=== PATIENT | male | born 1980 | race Two or more races ===

== ENCOUNTER 2021-10-07 08:46 | Inpatient (IN) ==
--- NOTE | 2021-10-07 09:16 | Emergency Department Note ---
Impression & Plan Pancreatitis, Abdominal pain, LUQ ED Provider Note INFORMANT: Patient ED PROVIDER(S): Moises Hernandez MD CHIEF COMPLAINT: Abdominal pain PLAN: Disposition: Admitted Condition: Good Outpatient prescription management: none Referral: None MEDICAL DECISION MAKING: Patient presented to emergency room and because of recurrent pain that was more severe. He was feeling better yesterday but then as he advanced his diet his symptoms returned. He was quite uncomfortable. He was treated with Dilaudid and Zofran. Blood work was obtained. He was also hydrated with lactated Ringer's. The patient was found to have hyperglycemia on chemistry panel. His initial potassium was hemolyzed and recollect revealed an elevated level of 6.3. ECG was performed and showed no acute changes consistent with hyperkalemia. Repeat potassium ordered. Imaging was deferred due to the recent CT scan consistent with acute pancreatitis. Lipase was initially reported as high, greater than 15,000 and required dilution. This dilution did reveal an elevated level over 21,000. The patient was reassessed. He required additional analgesia. Consultation was made with Dr. Ross of the hospitalist service. The team evaluated patient in the ER and admitted him for further management. They did place him on an insulin drip. Triage Nursing notes reviewed and agree them. Vital Signs: reviewed and remarkable for tachycardia and hypertension Differential diagnosis: Pancreatitis, appendicitis, testicular torsion, infections, diverticulitis, UTI, obstruction, mesenteric ischemia, aortic pathology, inflammatory bowel disease, renal colic, PUD, biliary pathology, hernia, volvulus, constipation, as well as other pathologies. Diagnostics interpreted by me: ECG: Twelve-lead ECG reveals sinus tachycardia at [address]-T wave abnormality present. No ST elevation. No PVCs or PACs. Cardiac Monitoring: Cardiac monitoring ordered by me: The patient was placed on continuous cardiac monitoring and observed. It revealed a normal sinus rhythm at 105beats per minute without ectopy or evidence of dysrhythmia. Imaging studies: Deferred HPI: The patient is a 41 year old male who presents to the Emergency Room with complaints of LUQ abdominal pain. This started today and is similar but more s evere than his visit two days when he was diagnosed with pancreatitis. The patient also notes the following associated symptoms, pain radiating to the back, sweating. The patient has taken no medication for relieving factors. Current pain is rated as 7/10. The patient notes the pain was a 10 out of 10. He states he was feeling better after discharge but then started to eat normally yesterday afternoon. He woke up today with the pain and it quickly escalated. He was diagnosed with hypertriglyceridemia and was started on medication for this. Pt denies LOC, headache, fevers, chills, diaphoresis, visual changes, neck pain, chest pain, breathing difficulties, nausea, vomiting, back pain, melena, hematochezia, urinary symptoms, numbness, weakness, lymphadenopathy, rash, or other complaints. ROS: See above HPI for pertinent positives & negatives. A total of 10 systems reviewed and were otherwise negative. PAST MEDICAL HISTORY:See Below , diabetes, high triglycerides, pancreatitis PAST SURGICAL HISTORY:See Below, FAMILY HISTORY:See Below SOCIAL HISTORY:See Below, HOME MEDICATIONS:See Below ALLERGIES:See Below VITALS:See Below PHYSICAL EXAMINATION: GENERAL: Awake, alert, uncomfortable-appearing, in no distress HENT: Normocephalic, atraumatic. Oropharynx unremarkable. EYES: Normal conjunctiva. Sclera non-icteric. NECK: Inspection normal. Non-tender. Supple. No nuchal rigidity. FROM. No masses. RESPIRATORY: Clear to auscultation. No wheezes. No rales. Normal respiratory effort. CARDIAC: Normal rate. Normal rhythm. No murmurs. No rubs. Extremities warm and well perfused. Pulses equal. No JVD. GI: Soft, non-distended. Left upper quadrant tenderness to palpation. No rebound or guarding. No masses. RECTAL: Deferred. MUSCULOSKELETAL: Atraumatic. Chest examination reveals no tenderness. The back is symmetrical on inspection without obvious abnormality. There is no CVA tenderness to palpation. No joint edema. LOWER EXTREMITIES: Calves are equal size bilaterally and non-tender. No edema. No discoloration. NEURO: Normal sensorium. No sensory or motor deficits noted. SKIN: Diaphoretic, no rash or jaundice noted. Moises Hernandez MD Past Med/Surg History Medical History Diabetes High blood pressure Surgical History (Updated 09/28/21 @ 00:18 by Colleen Florentino PA-C) History of orthopedic surgery Social History Smoking Status: Never smoker Feels Safe at Home: Yes Allergies Allergies Allergy/AdvReac Type Severity Reaction Status Date / Time No Known Allergies Allergy Verified 09/28/21 00:51 Home Meds Home Medications Medication Instructions Recorded Confirmed atorvastatin 10 mg tablet 10 mg PO HS 09/28/21 10/07/21 dextroamphetamine-amphetamine ER 30 mg PO DAILY 09/28/21 10/07/21 30 mg 24hr capsule,extend release hydrochlorothiazide 12.5 mg capsule 12.5 mg PO DAILY 09/28/21 10/07/21 lisinopril 20 mg tablet 20 mg PO DAILY 09/28/21 10/07/21 metformin 500 mg tablet 1,000 mg PO BID 09/28/21 10/07/21 metoprolol succinate 100 mg 100 mg PO DAILY 09/28/21 10/07/21 tablet,extended release 24 hr testosterone cypionate 200 mg/mL 200 mg IM .[id number] 09/28/21 10/07/21 intramuscular oil venlafaxine 75 mg tablet 75 mg PO BID 09/28/21 10/07/21 fenofibrate micronized 43 mg 43 mg PO DAILY 10/07/21 10/07/21 capsule Previous Rx's Medication Instructions Recorded cholestyramine-aspartame 4 gram 4 g PO DAILY PRN 30 Days #30 ea 09/28/21 oral powder for susp in a packet (Cholestyramine Light) Results & Data (ED) Vital Signs Vital Signs - 24 hr 10/07/21 08:48 10/07/21 09:36 10/07/21 10:13 Temperature 37.1 C Temperature Source Skin Pulse Rate 98 H Pulse Rate [Finger] 100 H Respiratory Rate 18 16 Blood Pressure 178/109 H Blood Pressure [Left Arm] 169/126 H Blood Pressure Mean 132 Blood Pressure Mean [Left Arm] 140 Pulse Oximetry 98 98 98 Oxygen Delivery Method Room Air Room Air Room Air Sepsis Recent Fever Within 48 Hours No Sepsis New/Unexplained Change in Mental Status No Sepsis Action Taken by Nursing No Action Required Laboratory Data Result diagrams: 10/07/21 09:35 10/07/21 14:43 Lab Results 10/07/21 10/07/21 10/07/21 Range/Units 09:35 09:35 09:40 WBC 6.77 (4.8-10.8) K/uL RBC 5.59 (4.7-6.1) M/uL Hgb 16.1 (14.0-18.0) g/dL Hct 46.5 (42-52) % MCV 83.2 (80-100) fL MCH 28.8 (25-34) pg MCHC 34.6 (32-36) g/dL RDW Std Deviation 39.3 (36.4-46.3) fL RDW Coeff of Vickie 13.2 (11.5-14.5) % Plt Count 250 (130-400) K/uL MPV 9.6 (7.4-10.4) fL Immature Gran % (Auto) 1.9 % Neut % (Auto) 56.0 % Lymph % (Auto) 32.1 % [place] % (Auto) 5.9 % Eos % (Auto) 3.4 % Baso % (Auto) 0.7 % Neut # (Auto) 3.79 (1.4-6.5) K/uL Lymph # (Auto) 2.17 (1.2-3.4) K/uL [place] # (Auto) 0.40 (0.11-0.59) K/uL Eos # (Auto) 0.23 (0-0.5) K/uL Baso # (Auto) 0.05 (0-0.2) K/uL Immature Gran # (Auto) 0.13 H (0.00-0.02) K/uL Absolute Nucleated RBC 0.08 H (0-0) K/uL Nucleated RBC % (auto) 1.1 % Sodium 133 L (136-145) mmol/L Potassium (3.5-5.1) mmol/L Chloride 99 (98-107) mmol/L Carbon Dioxide 19 L (21-32) mmol/L Anion Gap 11.0 (3-11) BUN 18 (7-18) mg/dl Creatinine 1.02 (0.6-1.4) mg/dl Est Cr Clr Drug Dosing 127.0 ml/min Est GFR ( Amer) 104.6 ml/min Est GFR (Non-Af Amer) 90.2 ml/min BUN/Creatinine Ratio 20.2 H (10-20) Glucose 305 H* (70-99) mg/dl Calcium 9.4 (8.5-10.1) mg/dl Total Bilirubin 0.4 (0.2-1) mg/dl AST (15-37) U/L ALT 43 (12-78) Alkaline Phosphatase 94 (45-117) U/L Lactate Dehydrogenase (87-241) U/L Total Protein 8.0 (6.4-8.2) gm/dl Albumin 3.4 (3.4-5.0) gm/dl Globulin 4.3 H (2.5-4.0) gm/dl Albumin/Globulin Ratio 0.9 (0.9-2) Triglycerides (0-150) mg/dl Lipase 85673 H (73-393) U/L Beta-Hydroxybutyric Acd (0.2-2.81) mg/dl Urine Color Urine Appearance (Clear) Urine pH (4.5-7.5) Ur Specific [place] (1.000-1.030) Urine Protein (Negative) Urine Glucose (UA) (Negative) Urine Ketones (Negative) Urine Blood (Negative) Urine Nitrite (Negative) Urine Bilirubin (Negative) Urine Urobilinogen (Negative) Ur Leukocyte Esterase (Negative) Urine WBC (Auto) (0-5) /hpf Urine RBC (Auto) (0-4) /hpf U Hyaline Cast (Auto) (0-5) /lpf U Epithel Cells (Auto) (0-5) /lpf Urine Bacteria (Auto) (Negative) SARS-CoV-2, RNA, NAAT NEGATIVE (NEGATIVE) 10/07/21 10/07/21 10/07/21 Range/Units 11:17 11:47 11:47 WBC (4.8-10.8) K/uL RBC (4.7-6.1) M/uL Hgb (14.0-18.0) g/dL Hct (42-52) % MCV (80-100) fL MCH (25-34) pg MCHC (32-36) g/dL RDW Std Deviation (36.4-46.3) fL RDW Coeff of Vickie (11.5-14.5) % Plt Count (130-400) K/uL MPV (7.4-10.4) fL Immature Gran % (Auto) % Neut % (Auto) % Lymph % (Auto) % [place] % (Auto) % Eos % (Auto) % Baso % (Auto) % Neut # (Auto) (1.4-6.5) K/uL Lymph # (Auto) (1.2-3.4) K/uL [place] # (Auto) (0.11-0.59) K/uL Eos # (Auto) (0-0.5) K/uL Baso # (Auto) (0-0.2) K/uL Immature Gran # (Auto) (0.00-0.02) K/uL Absolute Nucleated RBC (0-0) K/uL Nucleated RBC % (auto) % Sodium (136-145) mmol/L Potassium (3.5-5.1) mmol/L Chloride (98-107) mmol/L Carbon Dioxide (21-32) mmol/L Anion Gap (3-11) BUN (7-18) mg/dl Creatinine (0.6-1.4) mg/dl Est Cr Clr Drug Dosing ml/min Est GFR ( Amer) ml/min Est GFR (Non-Af Amer) ml/min BUN/Creatinine Ratio (10-20) Glucose (70-99) mg/dl Calcium (8.5-10.1) mg/dl Total Bilirubin (0.2-1) mg/dl AST (15-37) U/L ALT (12-78) Alkaline Phosphatase (45-117) U/L Lactate Dehydrogenase (87-241) U/L Total Protein (6.4-8.2) gm/dl Albumin (3.4-5.0) gm/dl Globulin (2.5-4.0) gm/dl Albumin/Globulin Ratio (0.9-2) Triglycerides 3287 H (0-150) mg/dl Lipase (73-393) U/L Beta-Hydroxybutyric Acd (0.2-2.81) mg/dl Urine Color Yellow Urine Appearance Clear (Clear) Urine pH 5.0 (4.5-7.5) Ur Specific [place] 1.024 (1.000-1.030) Urine Protein 1+ H (Negative) Urine Glucose (UA) 3+ H (Negative) Urine Ketones 1+ H (Negative) Urine Blood Negative (Negative) Urine Nitrite Negative (Negative) Urine Bilirubin Negative (Negative) Urine Urobilinogen Negative (Negative) Ur Leukocyte Esterase Negative (Negative) Urine WBC (Auto) 1-5 (0-5) /hpf Urine RBC (Auto) 0-4 (0-4) /hpf U Hyaline Cast (Auto) 0 (0-5) /lpf U Epithel Cells (Auto) 0-5 (0-5) /lpf Urine Bacteria (Auto) Negative (Negative) SARS-CoV-2, RNA, NAAT (NEGATIVE) Administered Medications Insulin Human Regular 250 (units/ Sodium Chloride) 250 mls @ 12 mls/hr IV .[id number] [facility]; Protocol Stop: 11/06/21 13:29 Last Admin: 10/07/21 14:52 Dose: 12 units/hr, 12 mls/hr Documented by: [id number] Cosigned by: [id number] Sodium Chloride (Nss 1000ml) 1,000 mls @ 200 mls/hr IV .Q5H [facility] Stop: 11/06/21 14:14 Last Admin: 10/07/21 14:58 Dose: 200 mls/hr Documented by: [id number] Discontinued Medications Hydralazine HCl (Hydralazine Hcl 20 Mg/Ml Vial) 10 mg IV NOW STA Stop: 10/07/21 13:22 Last Admin: 10/07/21 13:54 Dose: 10 mg Documented by: [id number] Hydromorphone HCl (Hydromorphone Inj 0.5 Mg/0.5 Ml Syr) 0.5 mg IV Q15M PRN PRN Reason: Pain Stop: 10/21/21 09:20 Last Admin: 10/07/21 14:58 Dose: 0.5 mg Documented by: [id number] Admin: 10/07/21 12:09 Dose: 0.5 mg Documented by: [id number] Admin: 10/07/21 09:40 Dose: 0.5 mg Documented by: [id number] Hydromorphone HCl (Hydromorphone Inj 1 Mg/Ml Syringe) 1 mg IV ONE STA Stop: 10/07/21 12:02 Last Admin: 10/07/21 12:41 Dose: 1 mg Documented by: [id number] Lactated Ringer's (Lr) 1,000 mls @ 999 mls/hr IV .Q1H1M ONE Stop: 10/07/21 12:16 Last Infusion: 10/07/21 12:32 Dose: 0 mls/hr Documented by: [id number] Admin: 10/07/21 11:20 Dose: 999 mls/hr Documented by: [id number] Lactated Ringer's (Lr) 1,000 mls @ 200 mls/hr IV .Q5H [facility] Stop: 11/06/21 11:29 Last Admin: 10/07/21 12:40 Dose: 200 mls/hr Documented by: [id number] Ondansetron HCl (Ondansetron Inj 2 Mg/Ml 2 Ml Vial) 4 mg IV NOW STA Stop: 10/07/21 09:22 Last Admin: 10/07/21 09:40 Dose: 4 mg Documented by: [id number] Discharge Plan Visit Data Chief Complaint: Abdominal Pain Stated Complaint: ABDOMINAL PAIN/CHILLS ED Provider: Moises Hernandez Discharge Problem: Pancreatitis, Abdominal pain, LUQ Discharge Instructions Interventions: ED Discharge Assessment Last Done: 10/07/21 15:10
[2021-10-07] MEDS ORDERED: ONDANSETRON INJ 2 MG/ML 2 ML VIAL IV STA (09:21)
[2021-10-07] MEDS: HYDROmorphone INJ 0.5 MG/0.5 ML SYR IV PRN ×3 (09:40→14:58)
[2021-10-07 09:47] LABS: Basophils # (auto) 0.05 K/uL (0-0.2); Basophils % (auto) 0.7 %; Eosinophils # (auto) 0.23 K/uL (0-0.5); Eosinophils % (auto) 3.4 %; Hematocrit (blood only) 46.5 % (42-52); Hemoglobin 16.1 g/dL (14.0-18.0); Immature Granulocytes # (auto) 0.13 K/uL (0.00-0.02); Immature Granulocytes % (auto) 1.9 %; Lymphocytes # (auto) 2.17 K/uL (1.2-3.4); Lymphocytes % (auto) 32.1 %; Mean Corpuscular Hemoglobin 28.8 pg (25-34); Mean Corpuscular Hgb Conc 34.6 g/dL (32-36); Mean Corpuscular Volume 83.2 fL (80-100); Mean Platelet Volume 9.6 fL (7.4-10.4); Monocytes % (auto) 5.9 %; Neutrophils # (auto) 3.79 K/uL (1.4-6.5); Nucleated RBC # (auto) 0.08 K/uL (0-0); Nucleated RBC % (auto) 1.1 %; Platelet Count 250 K/uL (130-400); RDW Coefficient of Variation 13.2 % (11.5-14.5); RDW Standard Deviation 39.3 fL (36.4-46.3); Red Blood Count 5.59 M/uL (4.7-6.1); White Blood Count 6.77 K/uL (4.8-10.8)
[2021-10-07] MEDS ORDERED: LACTATED RINGER'S 1,000 ML IV ONE (11:16)
[2021-10-07] MEDS ORDERED: LACTATED RINGER'S 1,000 ML IV SCH (11:30)
[2021-10-07 11:34] LABS: Appearance Urine Clear (Clear); Bacteria Urine Automated Negative (Negative); Bilirubin Urine Negative (Negative); Blood Urine Negative (Negative); Cast Urine Automated 0 /lpf (0-5); Color Urine Yellow; Epithelial Cell Urine Auto 0-5 /lpf (0-5); Glucose Urine UA 3+ (Negative); Ketones Urine 1+ (Negative); Leukocyte Esterase Urine Negative (Negative); Nitrite Urine Negative (Negative); Protein Urine 1+ (Negative); RBC Urine Automated 0-4 /hpf (0-4); Specific Gravity Urine 1.024 (1.000-1.030); Urobilinogen Urine Negative (Negative)
[2021-10-07 11:37] LABS: Albumin Globulin Ratio 0.9 (0.9-2); Albumin Level 3.4 gm/dl (3.4-5.0); BUN Creatinine Ratio 20.2 (10-20); Bilirubin,Total 0.4 mg/dl (0.2-1); Calcium 9.4 mg/dl (8.5-10.1); Est GFR (African American) 104.6 ml/min; Est GFR (Non-African American) 90.2 ml/min; Globulin 4.3 gm/dl (2.5-4.0)
[2021-10-07] MEDS ORDERED: PHARMACY GLYCEMIC MGMT CONSULT PRN (11:50)
[2021-10-07] MEDS ORDERED: STAT IV Infusion **Titration per Protocol STA (11:50)
[2021-10-07] MEDS ORDERED: HYDROmorphone INJ 1 MG/ML SYRINGE IV STA (12:01)
--- NOTE | 2021-10-07 12:04 | History & Physical Report ---
Date of Service October 07, 2021 Assessment & Plan (1) Pancreatitis: Plan: Patient will be admitted to the hospital proceeding as follows: Patient will be placed on bowel rest with n.p.o. status We will aggressively hydrate with IV fluids. Treating emergency room physician has ordered lactated Ringer's at 200 cc/h which we will continue. Will implement pain control measures Will implement antiemetics should nausea ensue We will follow serial laboratories We will check a gallbladder ultrasound to evaluate for biliary etiology of his pancreatitis Due to the patient's hyperglycemia he will be placed on an insulin drip with close monitoring of his BSG's We will hold the patient's hydrochlorothiazide The exact etiology of patient's pancreatitis has not yet been ascertained. As noted above we will evaluate for biliary pathology. As noted during his p revious visit to the emergency department the patient was noted to have hypertriglyceridemia which could be contributing to his pancreatitis. (Continued outpatient treatment for hypertriglyceridemia should be employed upon time of discharge) In addition the patient was noted to take hydrochlorothiazide which is sometimes an offending agent and pancreatitis. (This medicine is being held as noted above) We will utilize Lovenox for DVT prevention Patient will be a level 1 full code History of Present Illness Chief Complaint: Abdominal pain Primary Care Provider: NO PCP This is a 41-year-old male who was seen in the emergency department on 11/28/2020 secondary to abdominal pain. During that admission patient had a CT scan of the abdomen that showed pancreatic tail inflammation consistent with pancreatitis. Review of labs show that at that time patient had a CBC where his white blood cell count, hemoglobin, and hematocrit as well as platelet count were all noted to be normal. He was noted to have a sodium of 133 and a normal potassium. BUN and creatinine were noted to be normal at that time as was his calcium. During this admission he did have a lipase as well as LFTs evaluated which were noted to be normal. A glucose level was noted to be 300. Triglyceride level was checked at this time as well which was 832. Patient was felt to be stable for discharge home which he was. Patient notes that he was doing well initially at home however last evening he ate a full meal and shortly thereafter began to develop abdominal pain similar to what he presented to the emergency department with during aforementioned visit. He notes the pain is primary located in the left upper quadrant and epigastric areas of his abdomen. He does not note any radiation of the pain. He notes that the pain seems to be worse with eating or drinking and it is improved with abstaining from oral intake as well as administration of pain medicines given in the emergency department. Patient currently denies any fevers, shakes, chills. He has not had any nausea or vomiting since his pain began. Patient notes that his bowels have been moving normally without diarrhea and he is passing flatus. The patient denies any recent alcohol consumption. He denies undergoing any recent medical procedures. He also denies any trauma recently to his abdomen. He also denies any prior abdominal surgeries. Today in the emergency department the patient did again have labs performed where his white blood cell count, hemoglobin, hematocrit, and platelet count were all noted to be within normal range. Chemistry profile was performed that showed a sodium of 133. His BUN and creatinine were noted to be normal. A potassium level was ordered however the specimen was hemolyzed and this is currently pending on repeat levels. Patient's glucose is again elevated and noted to be 305 today. Patient's LFTs were checked and his bilirubin, ALT, and alkaline phosphatase were all noted to be normal. His AST level is pending.Patient's lipase level was reported to be greater than 15,000. He did have a Covid test that was performed and noted to be negative. A urinalysis was not indicative of infection. No repeat imaging was pursued at this time. At the time of my interview the patient was noted to be hemodynamically stable. He was afebrile. He was uncomfortable but in no overt distress. Allergies Allergy/AdvReac Type Severity Reaction Status Date / Time No Known Allergies Allergy Verified 09/28/21 00:51 Home Medications Medication Instructions Recorded Confirmed Type atorvastatin 10 mg tablet 10 mg PO HS 09/28/21 10/07/21 History cholestyramine-aspartame 4 gram 4 g PO DAILY PRN 30 Days #30 ea 09/28/21 10/07/21 Rx oral powder for susp in a packet (Cholestyramine Light) dextroamphetamine-amphetamine ER 30 mg PO DAILY 09/28/21 10/07/21 History 30 mg 24hr capsule,extend release hydrochlorothiazide 12.5 mg capsule 12.5 mg PO DAILY 09/28/21 10/07/21 History lisinopril 20 mg tablet 20 mg PO DAILY 09/28/21 10/07/21 History metformin 500 mg tablet 1,000 mg PO BID 09/28/21 10/07/21 History metoprolol succinate 100 mg 100 mg PO DAILY 09/28/21 10/07/21 History tablet,extended release 24 hr testosterone cypionate 200 mg/mL 200 mg IM .[id number] 09/28/21 10/07/21 History intramuscular oil venlafaxine 75 mg tablet 75 mg PO BID 09/28/21 10/07/21 History fenofibrate micronized 43 mg 43 mg PO DAILY 10/07/21 10/07/21 History capsule Past Med/Surg History Medical History Diabetes High blood pressure Surgical History (Updated 09/28/21 @ 00:18 by Colleen Florentino PA-C) History of orthopedic surgery Social History Smoking Status: Never smoker Second Hand Exposure: No; Hx Alcohol Use: No Hx Substance Use: No Preferred Language: French Communication Ability: Effective Briquetter Operator Required: No Current Living Situation: Alone Feels Safe at Home: Yes Assistive Devices: None Review of Systems Constitutional: no fever and no chills Eyes: no diplopia Ear, Nose, Mouth, Throat: no ear pain Respiratory: no cough and no dyspnea Cardiovascular: no chest pain Gastrointestinal: as per Subjective / HPI and + abdominal pain; no nausea, no vomiting and no diarrhea/loose stools Genitourinary: no dysuria Musculoskeletal: no back pain Integumentary: no rash Neurologic: no localized weakness Physical Exam Constitutional: well developed and well nourished; no acute distress Eyes: + anicteric sclerae; no conjunctival abnormality ENMT: Ears: no hearing impairment and no external ear abnormality Mouth: no oropharynx abnormality Neck: trachea midline, no thyromegaly Respiratory: Patient was not using accessory muscles to aid in respiration. There is slight decrease of breath sounds noted at the bases. There is no wheezing. Cardiovascular: Rate/Rhythm: regular rate and regular rhythm Gastrointestinal (Abdomen): Patient's abdomen is rotund but soft. There is no rebound tenderness or guarding. Patient did have pain with palpation in the epigastric area and to a greater extent the left upper quadrant. Alexi sign and Smiley Hauser sign were both noted to be negative. Musculoskeletal: No calf tenderness. Patient had palpable pedal and radial pulses. Skin: no rashes Neurologic: moves all extremities Psychiatric: A+Ox3, euthymic affect Results & Data Results & Data ([facility]) Vital Signs (Past 12 Hours) Vital Signs Temp Pulse Pulse Resp BP BP Pulse Ox 10/07/21 10:13 100 H 16 169/126 H 98 10/07/21 09:36 98 10/07/21 08:48 37.1 C 98 H 18 178/109 H 98 Laboratory Results Abnormal lab results 10/07/21 10/07/21 10/07/21 Range/Units 09:35 09:35 11:17 Immature Gran # (Auto) 0.13 H (0.00-0.02) K/uL Absolute Nucleated RBC 0.08 H (0-0) K/uL Sodium 133 L (136-145) mmol/L Potassium (3.5-5.1) mmol/L Carbon Dioxide 19 L (21-32) mmol/L BUN/Creatinine Ratio 20.2 H (10-20) Glucose 305 H* (70-99) mg/dl POC Glucose (70-99) mg/dl Globulin 4.3 H (2.5-4.0) gm/dl Triglycerides (0-150) mg/dl Lipase 87548 H (73-393) U/L Urine Protein 1+ H (Negative) Urine Glucose (UA) 3+ H (Negative) Urine Ketones 1+ H (Negative) 10/07/21 10/07/21 10/07/21 Range/Units 11:47 12:12 13:03 Immature Gran # (Auto) (0.00-0.02) K/uL Absolute Nucleated RBC (0-0) K/uL Sodium (136-145) mmol/L Potassium 6.3 H* (3.5-5.1) mmol/L Carbon Dioxide (21-32) mmol/L BUN/Creatinine Ratio (10-20) Glucose (70-99) mg/dl POC Glucose 272 H (70-99) mg/dl Globulin (2.5-4.0) gm/dl Triglycerides 3287 H (0-150) mg/dl Lipase (73-393) U/L Urine Protein (Negative) Urine Glucose (UA) (Negative) Urine Ketones (Negative) Diagnostic Findings ABDOMEN AND PELVIS CT WITH IV CONTRAST CT DOSE: 1592.07 mGy.cm HISTORY: Left lower quadrant abdominal pain. TECHNIQUE: Multiaxial CT images of the abdomen and pelvis were performed following the use of intravenous contrast. A dose lowering technique was utilized adhering to the principles of ALARA. COMPARISON STUDY: None. FINDINGS: Peripancreatic inflammatory change surrounding the tail the pancreas. No loculated fluid collections to suggest an abscess or pseudocyst. The main portal vein and splenic vein are patent. Mild hepatic steatosis. Normal caliber common bile duct. The gallbladder is unremarkable. The spleen, adrenal glands, and kidneys are within normal limits. No hydronephrosis. The lung bases are clear. No pneumoperitoneum. No pneumatosis. No fractures within the visualized osseous structures. Normal bladder. No pelvic free fluid. No bowel wall thickening or obstruction. Normal appendix. IMPRESSION: 1. Mild peripancreatic inflammatory change surrounding the pancreatic tail consistent with acute pancreatitis. 2. No bowel wall thickening or obstruction. 3. Normal appendix. 4. Hepatic steatosis. Medications Administered ER Medications Given: Ondansetron 4mg IV LR 1000ml bolus LR 200 ml/hr Code Status & VTE Plan VTE Prophylaxis Plan VTE Prophylaxis will be ordered: Yes Supervising Physician Co-Signing Physician Notes I personally saw and examined the patient. I verified all cochran points and agree with Kimo Correa PA-C with the following exceptions and/or additions: 41 year old male who presents to the ER with abdominal pain. Previously diagnosed with acute pancreatitis on September 28. Worsening after outpatient management. O/E acute distress from abdominal pain, No respiratory distress, Chest CTAB, tachycardia, regular rate, no murmurs, Abdo tender in epigastric region, guarding but no rebound tenderness A/P Acute hypertriglyceridemia pancreatitis - NSS @ 200 ml/hr, start insulin drip @ 0.1 units/hr, will start on D5 once glucose < 200. BMP Q4H. Triglycerides every 12 hours, stop insulin once < 500. Dilaudid for pain relief. Ondansetron for nasuea. NPO PG Care Time/CCT Total # of Minutes Spent Total Time Spent with Patient: Total time spent is greater than 50% in coordination of care (as documented) at patient's floor/unit and/or counseling patient: Coding Level of Care Code 73280 Initial Inpt Care Lvl 3 Diagnoses Pancreatitis K85.90 Acute pancreatitis complication: unspecified Chronicity: acute Pancreatitis type: unspecified pancreatitis type (1) Pancreatitis Acute pancreatitis complication: unspecified Chronicity: acute Pancreatitis type: unspecified pancreatitis type Qualified Code(s): K85.90 - Acute pancreatitis without necrosis or infection, unspecified
[2021-10-07] MEDS ORDERED: INSULIN PROTOCOL GOAL RANGE SCH (12:20)
[2021-10-07 12:44] LABS: Triglycerides 3287 mg/dl (0-150)
--- NOTE | 2021-10-07 12:56 | Ultrasound Report ---
US gallbladder CLINICAL HISTORY: Abdominal pain. Patient recently diagnosed with pancreatitis.. COMPARISON: CT of the abdomen and pelvis from 09/28/2021 TECHNIQUE: Multiple grayscale and color images of the right upper quadrant of the abdomen. FINDINGS: The study is limited by overlying bowel gas and body habitus. Pancreas: Compared to the CT examination, the pancreas cannot be visualized due to overlying bowel ga s. Liver: The liver is enlarged and heterogeneous in echogenicity characteristic of fatty infiltration. It measures approximately 22 cm in the axillary line. There is no evidence for a focal mass. There is no intrahepatic biliary duct dilatation. Gallbladder: The gallbladder was not well imaged. No gross stones are seen. No definite wall thicken ing or pericholecystic edema is identified. Common Bile Duct: (CBD): It is normal in size measuring 5 mm Inferior Vena Cava (IVC): The imaged IVC is patent. Right kidney: There is no evidence for hydronephrosis, calculus or gross renal mass. The kidney is n ormal in size. IMPRESSION: Limited examination due to overlying bowel gas and body habitus. Pancreatitis identified on recent CT cannot be seen by ultrasound due to the limitations present. If there is concern for w orsening pancreatitis, repeat CT with contrast would be necessary for further evaluation. ACT 112: Negative or not required by law. Electronically signed by: Caden Stout M.D. 10/07/2021 12:55 PM
[2021-10-07] MEDS ORDERED: D5W AND 1/2NSS + 20MEQ KCL 20 MEQ/1,000 ML BAG IV PRN (13:15)
[2021-10-07] MEDS ORDERED: D5W AND 1/2NSS 1,000 ML IV PRN (13:15)
[2021-10-07] MEDS ORDERED: hydrALAZINE HCL 20 MG/ML VIAL IV STA (13:21)
[2021-10-07 13:57] LABS: Potassium 6.3 mmol/L (3.5-5.1)
[2021-10-07] MEDS ORDERED: SODIUM CHLORIDE 0.9% 1000ML 1,000 ML IV SCH (14:15)
[2021-10-07] MEDS ORDERED: D5W AND 1/2NSS 1,000 ML IV SCH (14:15)
[2021-10-07] MEDS: INSULIN REGULAR 250 UNITS in SODIUM CHLORIDE 0.9% 247.5 ML IV SCH (14:52)
[2021-10-07] MEDS ORDERED: ONDANSETRON INJ 2 MG/ML 2 ML VIAL IV PRN ×2 (15:11→15:18)
[2021-10-07] MEDS ORDERED: HYDROmorphone INJ 1 MG/ML SYRINGE IV PRN (15:11)
[2021-10-07] MEDS ORDERED: hydrALAZINE HCL 20 MG/ML VIAL IV PRN (15:17)
[2021-10-07 15:36] LABS: BUN Creatinine Ratio 19.7 (10-20); Calcium 8.2 mg/dl (8.5-10.1); Est GFR (African American) 126.4 ml/min; Est GFR (Non-African American) 109.1 ml/min; Phosphorus 2.8 mg/dl (2.5-4.9)
[2021-10-07] MEDS ORDERED: GLUCOSE 40% GEL 15 GM TUBE PO PRN (15:45)
[2021-10-07] MEDS ORDERED: DEXTROSE 50% 50 ML SYRINGE IV PRN (15:45)
[2021-10-07] MEDS ORDERED: GLUCOSE 10 TABS/TUBE PO PRN (15:45)
[2021-10-07] MEDS ORDERED: CARBOHYDRATES FOR HYPOGLYCEMIA PO PRN (15:45)
[2021-10-07] MEDS ORDERED: GLUCAGON FOR INJ 1 MG VIAL IM PRN (15:45)
[2021-10-07 16:01] LABS: Magnesium 1.9 mg/dl (1.8-2.4); Potassium 4.5 mmol/L (3.5-5.1)
[2021-10-07] MEDS: HYDROmorphone INJ 1 MG/ML SYRINGE IV PRN ×4 (16:18→22:00)
[2021-10-07] MEDS ORDERED: INSULIN ASPART 100 UNITS/ML VIAL SC SCH (16:30)
--- NOTE | 2021-10-07 16:30 | Electrocardiogram Report ---
Test Reason : Blood Pressure : / mmHG Vent. Rate : 108 BPM Atrial Rate : 108 BPM P-R Int : 136 ms QRS Dur : 088 ms QT Int : 340 ms P-R-T Axes : 050 077 025 degrees QTc Int : 455 ms Sinus tachycardia Nonspecific ST and T wave abnormality Abnormal ECG No previous ECGs available Confirmed by Ron Rubio ([id number]) on 10/07/2021 4:30:26 PM Referred By: REFERRED SELF Confirmed By:Ron Rubio
--- NOTE | 2021-10-07 17:14 | XRay Report ---
XR chest 1V portable CLINICAL HISTORY: shortness of breath TECHNIQUE: Single frontal radiograph of the chest was obtained. Comparison: None available at the time of this dictation. FINDINGS: No lines and tubes are seen. The cardiomediastinal silhouette is normal. The lungs are clear. No evid ence of pleural effusion or pneumothorax. IMPRESSION: No acute chest disease. ACT 112: Negative or not required by law. Electronically signed by: Adam Grace M.D. 10/07/2021 5:13 PM
[2021-10-07] MEDS: D5NSS + 20MEQ KCL 20 MEQ/1,000 ML BAG IV SCH (17:45)
[2021-10-07 20:51] LABS: BUN Creatinine Ratio 19.8 (10-20); Calcium 7.6 mg/dl (8.5-10.1); Creatinine Clr Calc Pharmacy 164.7 ml/min; Est GFR (African American) 128.4 ml/min; Est GFR (Non-African American) 110.8 ml/min
--- NOTE | 2021-10-07 22:53 | Communication Note ---
Date of Service: October 07, 2021 Continue insulin drip at 12 units/hr. Potassium 4.5 @ 14:43. Started on D5NSS + KCl 20 meq @ 150 ml/hr. Will continue Q4H BMP checks. Handed over to night resident: Stop insulin drip if triglycerides < 500, if triglycerides increasing increase insulin drip to 24 units/hr and adjust D5 rate accordingly or switch to D10 to maintain glucose 100-200.
[2021-10-08] MEDS: HYDROmorphone INJ 1 MG/ML SYRINGE IV PRN ×10 (00:01→20:18)
[2021-10-08] MEDS: D5NSS + 20MEQ KCL 20 MEQ/1,000 ML BAG IV SCH ×4 (00:38→19:51)
[2021-10-08 01:14] LABS: BUN Creatinine Ratio 19.3 (10-20); Calcium 7.6 mg/dl (8.5-10.1); Creatinine Clr Calc Pharmacy 166.8 ml/min; Est GFR (Non-African American) 111.3 ml/min; Potassium 3.4 mmol/L (3.5-5.1)
[2021-10-08] MEDS ORDERED: METOPROLOL TARTRATE 1 MG/ML VIAL IV STA (01:16)
[2021-10-08 04:52] LABS: Basophils # (auto) 0.01 K/uL (0-0.2); Basophils % (auto) 0.2 %; Eosinophils # (auto) 0.01 K/uL (0-0.5); Eosinophils % (auto) 0.2 %; Hematocrit (blood only) 55.7 % (42-52); Immature Granulocytes # (auto) 0.01 K/uL (0.00-0.02); Immature Granulocytes % (auto) 0.2 %; Lymphocytes # (auto) 0.77 K/uL (1.2-3.4); Lymphocytes % (auto) 17.4 %; Mean Corpuscular Hemoglobin 28.8 pg (25-34); Mean Corpuscular Hgb Conc 34.1 g/dL (32-36); Mean Corpuscular Volume 84.5 fL (80-100); Mean Platelet Volume 9.8 fL (7.4-10.4); Monocytes # (auto) 0.22 K/uL (0.11-0.59); Platelet Count 317 K/uL (130-400); RDW Coefficient of Variation 13.7 % (11.5-14.5); RDW Standard Deviation 41.8 fL (36.4-46.3); Red Blood Count 6.59 M/uL (4.7-6.1); White Blood Count 4.42 K/uL (4.8-10.8)
[2021-10-08 04:58] LABS: Albumin Globulin Ratio 0.7 (0.9-2); BUN Creatinine Ratio 12.7 (10-20); Bilirubin,Total 0.4 mg/dl (0.2-1); Calcium 7.2 mg/dl (8.5-10.1); Creatinine Clr Calc Pharmacy 100.9 ml/min; Est GFR (African American) 78.7 ml/min; Est GFR (Non-African American) 67.9 ml/min; Globulin 4.2 gm/dl (2.5-4.0); Potassium 3.9 mmol/L (3.5-5.1); Total Protein 7.2 gm/dl (6.4-8.2)
[2021-10-08 08:37] LABS: BUN Creatinine Ratio 9.4 (10-20); Calcium 6.7 mg/dl (8.5-10.1); Creatinine Clr Calc Pharmacy 66.7 ml/min; Est GFR (African American) 47.8 ml/min; Est GFR (Non-African American) 41.2 ml/min; Potassium 4.4 mmol/L (3.5-5.1)
[2021-10-08] MEDS ORDERED: ENOXAPARIN INJ 40 MG/0.4 ML SYR SQ SCH (09:00)
[2021-10-08] MEDS ORDERED: METOPROLOL SUCC 50MG EXT REL TAB PO SCH (09:00)
--- NOTE | 2021-10-08 09:46 | Hospitalist Progress Note ---
Date of Service October 08, 2021 Assessment & Plan (1) Pancreatitis: Plan: Acute pancreatitis with peripancreatic edema, ?ileus/gastric outlet obs No leukocytosis -Unclear etiology. Biliary work-up with ultrasound limited as noted below. Patient with a history of hypertriglyceridemia and hydrochlorothiazide use. Triglycerides 3000 on admission, downtrending to 2495 Lipase greater than 21,000, downtrending to 7500 CT with contrast 09/28: Mild peripancreatic inflammatory change surrounding pancreatic tail consistent with acute pancreatitis. No signs of abscess or pseudocyst at that time Patient with normal creatinine on admission, up trended to 1.95 today Patient with persistent sinus tachycardia overnight Discussed with radiology, recommend CT with IV contrast to reevaluate for pancreatic necrosis/abscess, but limited by JE. Recommended to proceed with a half contrast dose will proceed with CT. IV fluids initially lactated Ringer's, converted to D5 NSS plus KCl for titration with insulin drip. Rate 150 overnight. Converted to D10 plus KCl rate of 75 to reduce total fluid volume w/ edema US limited due to overlying bowel gas and body habitus, nondiagnostic - Stop insulin drip if triglycerides < 500 ?ACS - Abdomen tensely distended - CT: ?ileus, peripancreatic edema, progression of acute pancreatitis -Fluid-filled air-filled stomach with distention With JE/ARF as below, although likely post renal Given risk with aggressive fluids and obstruction surgery consulted, no surgical intervention at this time. Pancreatitis management per primary/GI NGT placed, KUB confirms placement. Placed to LIS. Minimal output, advanced 2cm with positive fluid return. -Patient feeling of pressure somewhat improved after placement of NGT. Continue. Creatinine increased from 1.29 on admit to 2.47 (2) JE (acute kidney injury): Plan: JE/ARF Creatinine increased from 1.29 on admission, normal at baseline, to 2.47 - Suspect post-renal 2/2 retention and high fluids - Beasley placed - Lisinopril/hctz held -fluids at approximately 150/h, with urine output last 2 hours also approximately 150/h. Switched to D10 for BSG and to reduce volume as above Follow UOP, fluids as above (3) MARCELINA (obstructive sleep apnea): Plan: MARCELINA - Continue home nighttime BiPAP - Pt denies history of other lung disease, no hx of oxygen requirement If limited by NGT, oxmask overnight with spo2 goal >90%, (4) Hypertriglyceridemia: Plan: Hyperlipidemia held Atorvastatin 10 mg p.o. nightly held Fenofibrate - see pancreatitis above (5) Diabetes mellitus with hyperglycemia: Plan: - On insulin drip for hypertriglyceridemia as above (6) Abdominal pain: Plan: see above (7) High blood pressure: Plan: Hypertension Lisinopril held for JE Hydrochlorothiazide held for JE Metoprolol 100 mg succinate daily home dose continued - While NGT in place --> MTP 5mg IV q6H PRN hold for hypotension Plan: Diet: N.p.o. DVT prophylaxis: Lovenox CODE STATUS: Full code Admission and Anticipated Discharge Date Admission Date: October 07, 2021 Subjective Seen at bedside. Endorses continued severe pressure in his abdomen, and discomfort.. Tender to palpation at left abdomen. Reports he has not passed g as recently, no bowel movement recently. Feels his symptoms acutely worsened 1 day ago. No chest pain/chest pressure. Had only voided once, has since had Beasley placed. Endorses abdominal distention Review of Systems Review of Systems: All systems reviewed & are unremarkable except as noted in Subjective Physical Exam Physical Exam: General: A&Ox3. NAD. Cooperative. Appears uncomfortable. HEENT: Atraumatic, normocephalic. Visual acuity grossly intact, NGT in place. Pulm: CTAB A&P. -wheezes, -rales, -rhonchi. Symmetrical chest rise. No increase work of breathing. No respiratory distress. Cardiac: RRR, -mrg. Radial pulses intact and symmetrical. Abdominal: Distended, tympanic. Tender to palpation at left upper quadrant, no rebound in right quadrant. Results & Data Results & Data ([facility]) Vital Signs (Past 12 Hours) Vital Signs Temp Pulse Pulse Resp BP BP Pulse Ox 10/08/21 07:23 35.7 C L 148 H 20 110/70 93 10/08/21 03:10 36.8 C 139 H 20 115/77 95 10/08/21 01:23 145 H 125/85 10/08/21 00:44 134 H 10/07/21 22:30 36.9 C 136 H 24 154/88 H 94 PG Care Time/CCT Total # of Minutes Spent Total Time Spent with Patient: Total time spent is greater than 50% in coordination of care (as documented) at patient's floor/unit and/or counseling patient: Coding Level of Care Code 04712 Subseq Hosp Care Lvl 3 Diagnoses Pancreatitis K85.90 JE (acute kidney injury) N17.9 MARCELINA (obstructive sleep apnea) G47.33 Hypertriglyceridemia E78.1 Diabetes mellitus with hyperglycemia E11.65 Abdominal pain R10.9 High blood pressure I10
[2021-10-08] MEDS: INSULIN REGULAR 250 UNITS in SODIUM CHLORIDE 0.9% 247.5 ML IV SCH (10:38)
[2021-10-08] MEDS ORDERED: OPTIRAY 320 100ml IV ONE (11:03)
[2021-10-08 12:38] LABS: BUN Creatinine Ratio 8.1 (10-20); Calcium 6.4 mg/dl (8.5-10.1); Creatinine Clr Calc Pharmacy 52.7 ml/min; Est GFR (African American) 35.9 ml/min; Potassium 4.7 mmol/L (3.5-5.1)
--- NOTE | 2021-10-08 12:40 | CT Scan Report ---
ABDOMEN AND PELVIS CT WITH IV CONTRAST CT DOSE: 1551.36 mGy.cm HISTORY: Worsening abdominal pain. ?pancreatic necrosis. Half-dose contrast w/ JE TECHNIQUE: Multiaxial CT images of the abdomen and pelvis were performed following the use of intrave nous contrast. A dose lowering technique was utilized adhering to the principles of ALARA. COMPARISON STUDY: Abdomen and pelvis CT 09/28/2021. FINDINGS: There is a small left pleural effusion which is new from the prior study. Patchy densities within the lower lobes posteriorly are nonspecific but favor atelectasis. No pneumoperitoneum. No pne umatosis. No fractures within the visualized osseous structures. Hepatic steatosis. No hepatic or spl enic masses. The adrenal glands, gallbladder, and kidneys are unremarkable. The main portal vein, sup erior mesenteric vein, and splenic vein appear patent. A few mildly enlarged peripancreatic lymph nod es which are likely reactive. Normal caliber abdominal aorta. The bladder is unremarkable. Extensive peripancreatic edema extending into the bilateral anterior pararenal spaces and left paracolic gutter . This has significantly progressed in the interval. No loculated fluid collections to suggest an abs cess or pseudocyst. Homogeneous enhancement of the pancreas without evidence for necrosis at this melvina e. There is also mild bilateral perinephric edema, left greater than right. This is likely due to the acute pancreatitis. Mildly distended gas and fluid-filled stomach and duodenum. There are also a few mildly distended gas and fluid-filled loops of small bowel. This favors an ileus. A partial small lani wel obstruction could also a similar appearance but is considered less likely given the lack of a bishop ar transition point. No bowel wall thickening. Normal appendix. The peripancreatic edema also extends into the central mesentery. IMPRESSION: 1. Significant progression of the moderate peripancreatic edema which extends into the bilateral ante rior pararenal spaces, left paracolic gutter, and central mesentery. This is consistent with progress ion of the acute pancreatitis. 2. No evidence for pancreatic necrosis at this time. 3. Small left pleural effusion is new from the prior study. 4. Hepatic steatosis. 5. Mildly distended gas and fluid-filled stomach and duodenum. There are also a few mildly distended gas and fluid-filled loops of small bowel. This favors an ileus. A partial small bowel obstruction co uld also have a similar appearance but is considered less likely given the lack of a clear transition point. ACT 112: Negative or not required by law. Electronically signed by: Dano Melchor M.D. 10/08/2021 12:39 PM
--- NOTE | 2021-10-08 15:04 | Surgery Consultation ---
Date of Consultation October 08, 2021 Assessment & Plan (1) Pancreatitis: pt is a 41 year-old male who was admitted to hospital for acute pancreatitis, CT scan- MPRESSION: 1. Significant progression of the moderate peripancreatic edema which extends into the bilateral anterior pararenal spaces, left paracolic gutter, and central mesentery. This is consistent with progression of the acute pancreatitis. 2. No evidence for pancreatic necrosis at this time. 3. Small left pleural effusion is new from the prior study. 4. Hepatic steatosis. 5. Mildly distended gas and fluid-filled stomach and duodenum. There are also a few mildly distended gas and fluid-filled loops of small bowel. This favors an ileus. A partial small bowel obstruction could also have a similar appearance but is considered less likely given the lack of a clear transition point. IMP: acute pancreatitis, ileus Plan, no surgery indication now, conservative treatment, NPO, IV fluid, NG tube, control pain, repeat labs in morning, consult GI doctor. pt agrees with the plan, I answered all questions, will F/U Supervising Physician Co-Signing Physician Notes I personally saw and examined the patient. I verified all cochran points and agree with Kimo Correa PA-C with the following exceptions and/or additions: 41 year old male who presents to the ER with abdominal pain. Previously diagnosed with acute pancreatitis on September 28. Worsening after outpatient management. O/E acute distress from abdominal pain, No respiratory distress, Chest CTAB, tachycardia, regular rate, no murmurs, Abdo tender in epigastric region, guarding but no rebound tenderness A/P Acute hypertriglyceridemia pancreatitis - NSS @ 200 ml/hr, start insulin drip @ 0.1 units/hr, will start on D5 once glucose < 200. BMP Q4H. Triglycerides every 12 hours, stop insulin once < 500. Dilaudid for pain relief. Ondansetron for nasuea. NPO History of Present Illness Reason for Consultation: pancreatitis Requesting Physician: néstor Villareal MD Attending Physician: Néstor Villareal MD History of Present Illness History of Present Illness Chief Complaint: Abdominal pain Primary Care Provider: NO PCP This is a 41-year-old male who was seen in the emergency department on 09/28/2021 secondary to abdominal pain. During that admission patient had a CT scan of the abdomen that showed pancreatic tail inflammation consistent with pancreatitis. Review of labs show that at that time patient had a CBC where his white blood cell count, hemoglobin, and hematocrit as well as platelet count were all noted to be normal. He was noted to have a sodium of 133 and a normal potassium. BUN and creatinine were noted to be normal at that time as was his calcium. During this admission he did have a lipase as well as LFTs evaluated which were noted to be normal. A glucose level was noted to be 300. Triglyceride level was checked at this time as well which was 832. Patient was felt to be stable for discharge home which he was. Patient notes that he was doing well initially at home however last evening he ate a full meal and shortly thereafter began to develop abdominal pain similar to what he presented to the emergency department with during aforementioned visit. He notes the pain is primary located in the left upper quadrant and epigastric areas of his abdomen. He does not note any radiation of the pain. He notes that the pain seems to be worse with eating or drinking and it is improved with abstaining from oral intake as well as administration of pain medicines given in the emergency department. Patient currently denies any fevers, shakes, chills. He has not had any nausea or vomiting since his pain began. Patient notes that his bowels have been moving normally without diarrhea and he is passing flatus. The patient denies any recent alcohol consumption. He denies undergoing any recent medical procedures. He also denies any trauma recently to his abdomen. He also denies any prior abdominal surgeries. Today in the emergency department the patient did again have labs performed where his white blood cell count, hemoglobin, hematocrit, and platelet count were all noted to be within normal range. Chemistry profile was performed that showed a sodium of 133. His BUN and creatinine were noted to be normal. A potassium level was ordered however the specimen was hemolyzed and this is currently pending on repeat levels. Patient's glucose is again elevated and noted to be 305 today. Patient's LFTs were checked and his bilirubin, ALT, and alkaline phosphatase were all noted to be normal. His AST level is pending.Patient's lipase level was reported to be greater than 15,000. He did have a Covid test that was performed and noted to be negative. A urinalysis was not indicative of infection. No repeat imaging was pursued at this time. At the time of my interview the patient was noted to be hemodynamically stable. He was afebrile. He was uncomfortable but in no overt distress. I ( Adela Ponce MD ) got a call for consult pancreatitis, I reviewed pt's H/P, labs, CT scan with pt, pt has mild epigastric pain, alst BM yesterday, pt has hypertriglyceridemia, pt denies gallstone in his family, pt used to be drink alcohol in the past, Allergies Allergy/AdvReac Type Severity Reaction Status Date / Time No Known Allergies Allergy Verified 09/28/21 00:51 Home Medications Medication Instructions Recorded Confirmed Type atorvastatin 10 mg tablet 10 mg PO HS 09/28/21 10/07/21 Histo ry cholestyramine-aspartame 4 gram 4 g PO DAILY PRN 30 Days #30 ea 09/28/21 10/07/21 Rx oral powder for susp in a packet (Cholestyramine Light) dextroamphetamine-amphetamine ER 30 mg PO DAILY 09/28/21 1 History 30 mg 24hr capsule,extend release hydrochlorothiazide 12.5 mg capsule 12.5 mg PO DAILY 09/28/21 1206/20 History lisinopril 20 mg tablet 20 mg PO DAILY 09/28/21 10/07/21 History metformin 500 mg tablet 1,000 mg PO BID 09/28/21 10/07/21 History metoprolol succinate 100 mg 100 mg PO DAILY 09/28/21 10/07/21 His tory tablet,extended release 24 hr testosterone cypionate 200 mg/mL 200 mg IM .[id number] 09/28/21 1 History intramuscular oil venlafaxine 75 mg tablet 75 mg PO BID 09/28/21 10/07/21 Histor y fenofibrate micronized 43 mg 43 mg PO DAILY 10/07/21 10/07/21 Hi story capsule Past Med/Surg History Medical History Diabetes High blood pressure Surgical History(Updated 09/28/21 @ 00:18 by Colleen Florentino PA-C) History of orthopedic surgery Social History Smoking Status: Never smoker Second Hand Exposure: No; Hx Alcohol Use: No Hx Substance Use: No Preferred Language: E[place]an Communication Ability: Effective Director Of Athletics Required: No Current Living Situation: Alone Feels Safe at Home: Yes Assistive Devices: None Review of Systems Constitutional: no fever and no chills Eyes: no diplopia Ear, Nose, Mouth, Throat: no ear pain Respiratory: no cough and no dyspnea Cardiovascular: no chest pain Gastrointestinal: as per Subjective / HPI and + abdominal pain; no nausea, no vomiting and no diarrhea/loose stools Genitourinary: no dysuria Musculoskeletal: no back pain Integumentary: no rash Neurologic: no localized weakness Results & Data Results & Data ([facility]) Vital Signs (Past 12 Hours) Vital Signs Temp Pulse Pulse Resp BP BP Pulse Ox 10/07/21 10:13 100 H 16 169/126 H 98 10/07/21 09:36 98 10/07/21 08:48 37.1 C 98 H 18 178/109 H 98 Laboratory Results Abnormal lab results 10/07/21 10/07/21 10/07/21 Range/Units B 09:35 09:35 11:17 Immature Gran # (Auto) 0.13 H (0.00-0.02) K/uL Absolute Nucleated RBC 0.08 H (0-0) K/uL Sodium 133 L (136-145) mmol/L Potassium (3.5-5.1) mmol/L Carbon Dioxide 19 L (21-32) mmol/L BUN/Creatinine Ratio 20.2 H (10-20) Glucose 305 H* (70-99) mg/dl POC Glucose (70-99) mg/dl Globulin 4.3 H (2.5-4.0) gm/dl Triglycerides (0-150) mg/dl Lipase 77016 H (73-393) U/L Urine Protein 1+ H (Negative) Urine Glucose (UA) 3+ H (Negative) Urine Ketones 1+ H (Negative) 10/07/21 10/07/21 10/07/21 Range/Units 11:47 12:12 13:03 Immature Gran # (Auto) (0.00-0.02) K/uL Absolute Nucleated RBC (0-0) K/uL Sodium (136-145) mmol/L Potassium 6.3 H* (3.5-5.1) mmol/L Carbon Dioxide (21-32) mmol/L BUN/Creatinine Ratio (10-20) Glucose (70-99) mg/dl POC Glucose 272 H (70-99) mg/dl Globulin (2.5-4.0) gm/dl Triglycerides 3287 H (0-150) mg/dl Lipase (73-393) U/L Urine Protein (Negative) Urine Glucose (UA) (Negative) Urine Ketones (Negative) Diagnostic Findings ABDOMEN AND PELVIS CT WITH IV CONTRAST CT DOSE: 1592.07 mGy.cm HISTORY: Left lower quadrant abdominal pain. TECHNIQUE: Multiaxial CT images of the abdomen and pelvis were performed following the use of intravenous contrast. A dose lowering technique was utilized adhering to the principles of ALARA. COMPARISON STUDY: None. FINDINGS: Peripancreatic inflammatory change surrounding the tail the pancreas. No loculated fluid collections to suggest an abscess or pseudocyst. The main portal vein and splenic vein are patent. Mild hepatic steatosis. Normal caliber common bile duct. The gallbladder is unremarkable. The spleen, adrenal glands, and kidneys are within normal limits. No hydronephrosis. The lung bases are clear. No pneumoperitoneum. No pneumatosis. No fractures within the visualized osseous structures. Normal bladder. No pelvic free fluid. No bowel wall thickening or obstruction. Normal appendix. IMPRESSION: 1. Mild peripancreatic inflammatory change surrounding the pancreatic tail consistent with acute pancreatitis. 2. No bowel wall thickening or obstruction. 3. Normal appendix. 4. Hepatic steatosis. Allergies Allergy/AdvReac Type Severity Reaction Status Date / Time No Known Allergies Allergy Verified 09/28/21 00:51 Home Medications Medication Instructions Recorded Confirmed Type atorvastatin 10 mg tablet 10 mg PO HS 09/28/21 10/07/21 History cholestyramine-aspartame 4 gram 4 g PO DAILY PRN 30 Days #30 ea 09/28/21 10/07/21 Rx oral powder for susp in a packet (Cholestyramine Light) dextroamphetamine-amphetamine ER 30 mg PO DAILY 09/28/21 10/07/21 History 30 mg 24hr capsule,extend release hydrochlorothiazide 12.5 mg capsule 12.5 mg PO DAILY 09/28/21 10/07/21 History lisinopril 20 mg tablet 20 mg PO DAILY 09/28/21 10/07/21 History metformin 500 mg tablet 1,000 mg PO BID 09/28/21 10/07/21 History metoprolol succinate 100 mg 100 mg PO DAILY 09/28/21 10/07/21 History tablet,extended release 24 hr testosterone cypionate 200 mg/mL 200 mg IM .[id number] 09/28/21 10/07/21 History intramuscular oil venlafaxine 75 mg tablet 75 mg PO BID 09/28/21 10/07/21 History fenofibrate micronized 43 mg 43 mg PO DAILY 10/07/21 10/07/21 History capsule Patient History Medical History Diabetes High blood pressure Surgical History (Updated 09/28/21 @ 00:18 by Colleen Florentino PA-C) History of orthopedic surgery Social History Smoking Status: Never smoker Second Hand Exposure: No; Hx Alcohol Use: No Hx Substance Use: No Preferred Language: [place]an Communication Ability: Effective Director Of Athletics Required: No Current Living Situation: Alone Feels Safe at Home: Yes Assistive Devices: None Physical Exam Constitutional: WD/WN, vitals as above Eyes: PERRL, conjunctivae normal, anicteric sclerae Neck: trachea midline, no thyromegaly Respiratory: normal respiratory effort, lungs clear to auscultation Cardiovascular: RRR, no murmur, no edema Gastrointestinal (Abdomen): soft, mild tenderness at epigastric area, no rebound pain, mild distend abdomen, BS +, no skin color change, Musculoskeletal: no cyanosis or clubbing, extremities motor strength 5/5 Skin: no rashes, warm and dry Neurologic: patellar DTR's 2+ bilat, sensation intact Psychiatric: A+Ox3, euthymic affect Results & Data ([facility]) Vital Signs (Past 12 Hours) Vital Signs Temp Pulse Resp BP BP Pulse Ox 10/08/21 11:05 37.2 C 134 H 24 95/66 L 94 10/08/21 07:23 35.7 C L 148 H 20 110/70 93 10/08/21 03:10 36.8 C 139 H 20 115/77 95 Laboratory Results Abnormal lab results 10/07/21 10/07/21 10/07/21 Range/Units 14:43 15:46 16:53 WBC (4.8-10.8) K/uL RBC (4.7-6.1) M/uL Hgb (14.0-18.0) g/dL Hct (42-52) % Lymph # (Auto) (1.2-3.4) K/uL Sodium 130 L (136-145) mmol/L Potassium (3.5-5.1) mmol/L Chloride 97 L (98-107) mmol/L Carbon Dioxide (21-32) mmol/L BUN (7-18) mg/dl Creatinine (0.6-1.4) mg/dl BUN/Creatinine Ratio (10-20) Glucose 283 H (70-99) mg/dl POC Glucose 209 H 161 H (70-99) mg/dl Calcium 8.2 L (8.5-10.1) mg/dl Albumin (3.4-5.0) gm/dl Globulin (2.5-4.0) gm/dl Albumin/Globulin Ratio (0.9-2) Triglycerides (0-150) mg/dl Lipase (73-393) U/L 10/07/21 10/07/21 10/07/21 Range/Units 17:50 19:20 20:09 WBC (4.8-10.8) K/uL RBC (4.7-6.1) M/uL Hgb (14.0-18.0) g/dL Hct (42-52) % Lymph # (Auto) (1.2-3.4) K/uL Sodium 133 L (136-145) mmol/L Potassium (3.5-5.1) mmol/L Chloride (98-107) mmol/L Carbon Dioxide (21-32) mmol/L BUN (7-18) mg/dl Creatinine (0.6-1.4) mg/dl BUN/Creatinine Ratio (10-20) Glucose 181 H (70-99) mg/dl POC Glucose 135 H 131 H (70-99) mg/dl Calcium 7.6 L (8.5-10.1) mg/dl Albumin (3.4-5.0) gm/dl Globulin (2.5-4.0) gm/dl Albumin/Globulin Ratio (0.9-2) Triglycerides (0-150) mg/dl Lipase (73-393) U/L 10/07/21 10/07/21 10/07/21 Range/Units 20:14 21:15 22:13 WBC (4.8-10.8) K/uL RBC (4.7-6.1) M/uL Hgb (14.0-18.0) g/dL Hct (42-52) % Lymph # (Auto) (1.2-3.4) K/uL Sodium (136-145) mmol/L Potassium (3.5-5.1) mmol/L Chloride (98-107) mmol/L Carbon Dioxide (21-32) mmol/L BUN (7-18) mg/dl Creatinine (0.6-1.4) mg/dl BUN/Creatinine Ratio (10-20) Glucose (70-99) mg/dl POC Glucose 148 H 140 H 149 H (70-99) mg/dl Calcium (8.5-10.1) mg/dl Albumin (3.4-5.0) gm/dl Globulin (2.5-4.0) gm/dl Albumin/Globulin Ratio (0.9-2) Triglycerides (0-150) mg/dl Lipase (73-393) U/L 10/07/21 10/08/21 10/08/21 Range/Units 23:15 00:36 01:04 WBC (4.8-10.8) K/uL RBC (4.7-6.1) M/uL Hgb (14.0-18.0) g/dL Hct (42-52) % Lymph # (Auto) (1.2-3.4) K/uL Sodium 132 L (136-145) mmol/L Potassium 3.4 L (3.5-5.1) mmol/L Chloride (98-107) mmol/L Carbon Dioxide (21-32) mmol/L BUN (7-18) mg/dl Creatinine (0.6-1.4) mg/dl BUN/Creatinine Ratio (10-20) Glucose 142 H (70-99) mg/dl POC Glucose 144 H 129 H (70-99) mg/dl Calcium 7.6 L (8.5-10.1) mg/dl Albumin (3.4-5.0) gm/dl Globulin (2.5-4.0) gm/dl Albumin/Globulin Ratio (0.9-2) Triglycerides 2495 H (0-150) mg/dl Lipase (73-393) U/L 12/07/2110/08/21 10/08/21 Range/Units 01:58 03:01 04:03 WBC (4.8-10.8) K/uL RBC (4.7-6.1) M/uL Hgb (14.0-18.0) g/dL Hct (42-52) % Lymph # (Auto) (1.2-3.4) K/uL Sodium (136-145) mmol/L Potassium (3.5-5.1) mmol/L Chloride (98-107) mmol/L Carbon Dioxide (21-32) mmol/L BUN (7-18) mg/dl Creatinine (0.6-1.4) mg/dl BUN/Creatinine Ratio (10-20) Glucose (70-99) mg/dl POC Glucose 121 H 122 H 118 H (70-99) mg/dl Calcium (8.5-10.1) mg/dl Albumin (3.4-5.0) gm/dl Globulin (2.5-4.0) gm/dl Albumin/Globulin Ratio (0.9-2) Triglycerides (0-150) mg/dl Lipase (73-393) U/L 10/08/21 10/08/21 10/08/21 Range/Units 04:16 04:16 05:46 WBC 4.42 L (4.8-10.8) K/uL RBC 6.59 H (4.7-6.1) M/uL Hgb 19.0 H (14.0-18.0) g/dL Hct 55.7 H (42-52) % Lymph # (Auto) 0.77 L (1.2-3.4) K/uL Sodium 134 L (136-145) mmol/L Potassium (3.5-5.1) mmol/L Chloride (98-107) mmol/L Carbon Dioxide (21-32) mmol/L BUN (7-18) mg/dl Creatinine (0.6-1.4) mg/dl BUN/Creatinine Ratio (10-20) Glucose 127 H (70-99) mg/dl POC Glucose 109 H (70-99) mg/dl Calcium 7.2 L (8.5-10.1) mg/dl Albumin 3.0 L (3.4-5.0) gm/dl Globulin 4.2 H (2.5-4.0) gm/dl Albumin/Globulin Ratio 0.7 L (0.9-2) Triglycerides (0-150) mg/dl Lipase 7507 H (73-393) U/L 10/08/21 10/08/21 10/08/21 Range/Units 06:39 07:42 07:47 WBC (4.8-10.8) K/uL RBC (4.7-6.1) M/uL Hgb (14.0-18.0) g/dL Hct (42-52) % Lymph # (Auto) (1.2-3.4) K/uL Sodium (136-145) mmol/L Potassium (3.5-5.1) mmol/L Chloride (98-107) mmol/L Carbon Dioxide 19 L (21-32) mmol/L BUN (7-18) mg/dl Creatinine 1.95 H D (0.6-1.4) mg/dl BUN/Creatinine Ratio 9.4 L (10-20) Glucose 113 H (70-99) mg/dl POC Glucose 105 H 101 H (70-99) mg/dl Calcium 6.7 L (8.5-10.1) mg/dl Albumin (3.4-5.0) gm/dl Globulin (2.5-4.0) gm/dl Albumin/Globulin Ratio (0.9-2) Triglycerides (0-150) mg/dl Lipase (73-393) U/L 10/08/21 10/08/21 10/08/21 Range/Units 08:45 09:44 11:06 WBC (4.8-10.8) K/uL RBC (4.7-6.1) M/uL Hgb (14.0-18.0) g/dL Hct (42-52) % Lymph # (Auto) (1.2-3.4) K/uL Sodium (136-145) mmol/L Potassium (3.5-5.1) mmol/L Chloride (98-107) mmol/L Carbon Dioxide (21-32) mmol/L BUN (7-18) mg/dl Creatinine (0.6-1.4) mg/dl BUN/Creatinine Ratio (10-20) Glucose (70-99) mg/dl POC Glucose 112 H 122 H 171 H (70-99) mg/dl Calcium (8.5-10.1) mg/dl Albumin (3.4-5.0) gm/dl Globulin (2.5-4.0) gm/dl Albumin/Globulin Ratio (0.9-2) Triglycerides (0-150) mg/dl Lipase (73-393) U/L 10/08/21 10/08/21 10/08/21 Range/Units 12:04 12:09 13:18 WBC (4.8-10.8) K/uL RBC (4.7-6.1) M/uL Hgb (14.0-18.0) g/dL Hct (42-52) % Lymph # (Auto) (1.2-3.4) K/uL Sodium 132 L (136-145) mmol/L Potassium (3.5-5.1) mmol/L Chloride (98-107) mmol/L Carbon Dioxide 18 L (21-32) mmol/L BUN 20 H (7-18) mg/dl Creatinine 2.47 H D (0.6-1.4) mg/dl BUN/Creatinine Ratio 8.1 L (10-20) Glucose 187 H (70-99) mg/dl POC Glucose 173 H 154 H (70-99) mg/dl Calcium 6.4 L (8.5-10.1) mg/dl Albumin (3.4-5.0) gm/dl Globulin (2.5-4.0) gm/dl Albumin/Globulin Ratio (0.9-2) Triglycerides 1384 H (0-150) mg/dl Lipase (73-393) U/L 10/08/21 Range/Units 14:16 WBC (4.8-10.8) K/uL RBC (4.7-6.1) M/uL Hgb (14.0-18.0) g/dL Hct (42-52) % Lymph # (Auto) (1.2-3.4) K/uL Sodium (136-145) mmol/L Potassium (3.5-5.1) mmol/L Chloride (98-107) mmol/L Carbon Dioxide (21-32) mmol/L BUN (7-18) mg/dl Creatinine (0.6-1.4) mg/dl BUN/Creatinine Ratio (10-20) Glucose (70-99) mg/dl POC Glucose 135 H (70-99) mg/dl Calcium (8.5-10.1) mg/dl Albumin (3.4-5.0) gm/dl Globulin (2.5-4.0) gm/dl Albumin/Globulin Ratio (0.9-2) Triglycerides (0-150) mg/dl Lipase (73-393) U/L Diagnostic Findings ABDOMEN AND PELVIS CT WITH IV CONTRAST CT DOSE: 1551.36 mGy.cm HISTORY: Worsening abdominal pain. ?pancreatic necrosis. Half-dose contrast w/ JE TECHNIQUE: Multiaxial CT images of the abdomen and pelvis were performed following the use of intravenous contrast. A dose lowering technique was utilized adhering to the principles of ALARA. COMPARISON STUDY: Abdomen and pelvis CT 09/28/2021. FINDINGS: There is a small left pleural effusion which is new from the prior study. Patchy densities within the lower lobes posteriorly are nonspecific but favor atelectasis. No pneumoperitoneum. No pneumatosis. No fractures within the visualized osseous structures. Hepatic steatosis. No hepatic or splenic masses. The adrenal glands, gallbladder, and kidneys are unremarkable. The main portal vein, superior mesenteric vein, and splenic vein appear patent. A few mildly enlarged peripancreatic lymph nodes which are likely reactive. Normal caliber abdominal aorta. The bladder is unremarkable. Extensive peripancreatic edema extending into the bilateral anterior pararenal spaces and left paracolic gutter. This has significantly progressed in the interval. No loculated fluid collections to suggest an abscess or pseudocyst. Homogeneous enhancement of the pancreas without evidence for necrosis at this time. There is also mild bilateral perinephric edema, left greater than right. This is likely due to the acute pancreatitis. Mildly distended gas and fluid-filled stomach and duodenum. There are also a few mildly distended gas and fluid-filled loops of small bowel. This favors an ileus. A partial small bowel obstruction could also a similar appearance but is considered less likely given the lack of a clear transition point. No bowel wall thickening. Normal appendix. The peripancreatic edema also extends into the central mesentery. IMPRESSION: 1. Significant progression of the moderate peripancreatic edema which extends into the bilateral anterior pararenal spaces, left paracolic gutter, and central mesentery. This is consistent with progression of the acute pancreatitis. 2. No evidence for pancreatic necrosis at this time. 3. Small left pleural effusion is new from the prior study. 4. Hepatic steatosis. 5. Mildly distended gas and fluid-filled stomach and duodenum. There are also a few mildly distended gas and fluid-filled loops of small bowel. This favors an ileus. A partial small bowel obstruction could also have a similar appearance but is considered less likely given the lack of a clear transition point. ABDOMEN AND PELVIS CT WITH IV CONTRAST CT DOSE: 1592.07 mGy.cm HISTORY: Left lower quadrant abdominal pain. TECHNIQUE: Multiaxial CT images of the abdomen and pelvis were performed following the use of intravenous contrast. A dose lowering technique was utilized adhering to the principles of ALARA. COMPARISON STUDY: None. FINDINGS: Peripancreatic inflammatory change surrounding the tail the pancreas. No loculated fluid collections to suggest an abscess or pseudocyst. The main portal vein and splenic vein are patent. Mild hepatic steatosis. Normal caliber common bile duct. The gallbladder is unremarkable. The spleen, adrenal glands, and kidneys are within normal limits. No hydronephrosis. The lung bases are clear. No pneumoperitoneum. No pneumatosis. No fractures within the visualized osseous structures. Normal bladder. No pelvic free fluid. No bowel wall thickening or obstruction. Normal appendix. IMPRESSION: 1. Mild peripancreatic inflammatory change surrounding the pancreatic tail consistent with acute pancreatitis. 2. No bowel wall thickening or obstruction. 3. Normal appendix. 4. Hepatic steatosis. US gallbladder CLINICAL HISTORY: Abdominal pain. Patient recently diagnosed with pancreatitis.. COMPARISON: CT of the abdomen and pelvis from 09/28/2021 TECHNIQUE: Multiple grayscale and color images of the right upper quadrant of the abdomen. FINDINGS: The study is limited by overlying bowel gas and body habitus. Pancreas: Compared to the CT examination, the pancreas cannot be visualized due to overlying bowel gas. Liver: The liver is enlarged and heterogeneous in echogenicity characteristic of fatty infiltration. It measures approximately 22 cm in the axillary line. There is no evidence for a focal mass. There is no intrahepatic biliary duct dilatation. Gallbladder: The gallbladder was not well imaged. No gross stones are seen. No definite wall thickening or pericholecystic edema is identified. Common Bile Duct: (CBD): It is normal in size measuring 5 mm Inferior Vena Cava (IVC): The imaged IVC is patent. Right kidney: There is no evidence for hydronephrosis, calculus or gross renal mass. The kidney is normal in size. IMPRESSION: Limited examination due to overlying bowel gas and body habitus. Pancreatitis identified on recent CT cannot be seen by ultrasound due to the limitations present. If there is concern for worsening pancreatitis, repeat CT with contrast would be necessary for further evaluation.
--- NOTE | 2021-10-08 15:45 | XRay Report ---
XR KUB/Abdomen 1 view CLINICAL HISTORY: check NGT placement TECHNIQUE: 1 view of the abdomen was obtained. Comparison: None available at the time of this dictation. FINDINGS: Enteric tube side-port is within the stomach. The osseous structures are grossly unremarkable. Gas di stended stomach is noted. IMPRESSION: Satisfactory position of NG tube. ACT 112: Negative or not required by law. Electronically signed by: Adam Grace M.D. 10/08/2021 3:44 PM
[2021-10-08] MEDS ORDERED: METOPROLOL TARTRATE 1 MG/ML VIAL IV PRN (18:02)
[2021-10-08 18:07] LABS: Albumin Level 2.5 gm/dl (3.4-5.0); BUN Creatinine Ratio 7.5 (10-20); Calcium 6.8 mg/dl (8.5-10.1); Creatinine Clr Calc Pharmacy 44.6 ml/min; Est GFR (African American) 29.3 ml/min; Est GFR (Non-African American) 25.3 ml/min
[2021-10-08 18:16] LABS: Albumin Globulin Ratio 0.6 (0.9-2); Bilirubin,Total 0.4 mg/dl (0.2-1); Globulin 4.2 gm/dl (2.5-4.0); Total Protein 6.7 gm/dl (6.4-8.2)
[2021-10-08] MEDS ORDERED: POTASSIUM CHLORIDE 20 MEQ in DEXTROSE 10% 1,000 ML IV SCH (19:00)
[2021-10-08] MEDS: VENLAFAXINE HCL 75 MG TAB PO SCH (20:06)
--- NOTE | 2021-10-08 22:19 | Electrocardiogram Report ---
Test Reason : Blood Pressure : / mmHG Vent. Rate : 141 BPM Atrial Rate : 141 BPM P-R Int : 122 ms QRS Dur : 086 ms QT Int : 300 ms P-R-T Axes : 061 076 094 degrees QTc Int : 459 ms Sinus tachycardia Nonspecific ST and T wave abnormality Abnormal ECG When compared with ECG of 07-OCT-2021 14:49, No significant change was found Confirmed by Pavan Collins ([id number]) on 10/08/2021 10:19:10 PM Referred By: REFERRED SELF Confirmed By:Pavan Collins
[2021-10-08 23:16] LABS: Calcium 6.3 mg/dl (8.5-10.1); Est GFR (African American) 19.6 ml/min; Est GFR (Non-African American) 16.9 ml/min; Potassium 4.9 mmol/L (3.5-5.1)
[2021-10-09] MEDS ORDERED: STAT IV Infusion **Titration per Protocol STA (00:35)
[2021-10-09] MEDS: PHENYLEPHRINE HCL 20 MG in DEXTROSE 5% 500 ML IV SCH ×7 (01:12→22:05)
[2021-10-09] MEDS: FAMOTIDINE 20 MG in SYRINGE 3 ML IV SCH ×3 (01:12→20:38)
[2021-10-09 01:18] LABS: Basophils # (auto) 0.02 K/uL (0-0.2); Basophils % (auto) 0.2 %; Eosinophils # (auto) 0.02 K/uL (0-0.5); Eosinophils % (auto) 0.2 %; Hematocrit (blood only) 49.4 % (42-52); Hemoglobin 16.6 g/dL (14.0-18.0); Immature Granulocytes # (auto) 0.04 K/uL (0.00-0.02); Immature Granulocytes % (auto) 0.5 %; Lymphocytes # (auto) 1.45 K/uL (1.2-3.4); Lymphocytes % (auto) 17.4 %; Mean Corpuscular Hemoglobin 28.6 pg (25-34); Mean Corpuscular Hgb Conc 33.6 g/dL (32-36); Monocytes # (auto) 0.37 K/uL (0.11-0.59); Monocytes % (auto) 4.4 %; Neutrophils # (auto) 6.44 K/uL (1.4-6.5); Neutrophils % (auto) 77.3 %; Platelet Count 274 K/uL (130-400); RDW Coefficient of Variation 14.3 % (11.5-14.5); RDW Standard Deviation 44.2 fL (36.4-46.3); Red Blood Count 5.81 M/uL (4.7-6.1); White Blood Count 8.34 K/uL (4.8-10.8)
[2021-10-09 01:49] LABS: Albumin Level 2.8 gm/dl (3.4-5.0); BUN Creatinine Ratio 6.2 (10-20); Bilirubin Direct 0.2 mg/dl (0-0.2); Bilirubin,Total 0.6 mg/dl (0.2-1); Calcium 6.3 mg/dl (8.5-10.1); Creatinine Clr Calc Pharmacy 29.8 ml/min; Est GFR (African American) 18.1 ml/min; Est GFR (Non-African American) 15.6 ml/min; Magnesium 1.7 mg/dl (1.8-2.4); Phosphorus 0.8 mg/dl (2.5-4.9); Potassium 5.8 mmol/L (3.5-5.1); Total Protein 7.1 gm/dl (6.4-8.2)
--- NOTE | 2021-10-09 02:23 | Critical Care Consultation ---
Date of Consultation October 09, 2021 Assessment & Plan (1) Admitted to intensive care unit: Reason Critically Ill: 41-year-old male presenting with pancreatitis likely secondary to hypertriglyceridemia who, despite aggressive management with fluid resuscitation and attempts at improving NEURO - * CAM ICU: NEGATIVE CARDIAC/VASCULAR - * Tachycardia: * Has been persistent over the last 24 hours despite IVF resuscitation. * Patient does take BB at home which has been held recently 2/2 labial BPs. * As the patient is requiring pressors now, will add Joel to start. * Will check lactate to assess possible underlying ischemic contribution. * HTN: * Hold home BP meds. * Hypertriglyceridemia: * Trending down with insulin/dextrose containing IVF. * Will continue until his triglycerides are <1000 at least. * ?? underlying familial component. * Monitor on telemetry. RESPIRATORY - * MARCELINA: * Home BiPAP HS * Saturating well on room air otherwise. GI/NUTRITION - * Pancreatitis: * Likely 2/2 hypertriglyceridemia in the absence of other causative factors. * CT w/ IVC today demonstrates - 1. Significant progression of the moderate peripancreatic edema which extends into the bilateral anterior pararenal spaces, left paracolic gutter, and central mesentery. This is consistent with progression of the acute pancreatitis. 2. No evidence for pancreatic necrosis at this time. 3. Small left pleural effusion is new from the prior study. 4. Hepatic steatosis. 5. Mildly distended gas and fluid-filled stomach and duodenum. There are also a few mildly distended gas and fluid-filled loops of small bowel. This favors an ileus. A partial small bowel obstruction could also have a similar appearance but is considered less likely given the lack of a clear transition point. * Patient has received an aggressive amount of IVF to this point. * Currently receiving potassium and dextrose containing IVF. * Imaging has not shown ischemia or other GI contributing pathology otherwise. * Appreciate GI consultation. * Prophylaxis: Famotidine RENAL/LYTES - * ARF: * Progressively worsening renal function and decreased urinary output throughout hospitalization. * Uncertain as to etiology with current information. * Will add additional studies. * ?? degree of compressive injury 2/2 findings of increased edema into the bilateral pararenal spaces. * Will add renal US to assess blood flow. * Appreciate nephrology guidance. - * Beasley in place - Strict I&Os. ENDO - * DMII * BSGs per unit protocol. ISS --> gtt per unit policy. HEME - * Stable H&H * Interestingly, patient appears hemoconcentrated on yesterdays labs despite continued IVF resuscitation and minimal urine output. ID - * No known sources of infection at this time. * Will add Lactate/PCT. * Recent CT Abd/pelvis show pancreatic inflammation without necrosis or abscess. LINES/IV ACCESS - * PIVs x2 * Beasley DVT PROPHYLAXIS - * SCDs I have personally spent 55 minutes of critical care time in the direct management of this patient. This is a life/limb threatening event. This includes time spent evaluating patient, direct bedside care, chart review, placing orders, interpretation of diagnostic studies, discussion with consultants, patient, and family members, as well as other required patient management activities. This time is exclusive of all separately billable procedures, and teaching time and separate from and in addition to any other critical care service time. Thank you for allowing us to participate in the care of this patient. Please refer to my attending physician's documentation for any further recommendations. (2) Pancreatitis: (3) Hypertriglyceridemia: (4) High blood pressure: (5) MARCELINA (obstructive sleep apnea): (6) JE (acute kidney injury): History of Present Illness Attending Physician: Néstor Villareal MD History of Present Illness Patient is a 41-year-old male with a significant past medical history of diabetes, hypertension, and obstructive sleep apnea who initially presented to the emergency department on 09/28 with waxing and waning abdominal pain over the last few months. CT of the abdomen pelvis was obtained which suggested pancreatitis. The patient responded well to IV fluids and subsequently requested discharged home. The patient did well over the last week and did follow-up with his primary care provider, however he had worsening abdominal pain which prompted return visit to the emergency department. During this visit, the patient was noted to have significantly elevated lipase as well as triglyceride levels. The patient was admitted to this institution and started on insulin drip as well as glucose containing fluids in an effort to try down his triglyceride levels. Unfortunately, throughout his stay, the patient has had worsening renal function and decreased urine output despite aggressive fluid resuscitation. Throughout the last several hours, the patient's blood pressures have trended down. He has become hypotensive with systolic blood pressures in the 70s. Heart rate remains elevated in the 120s to 130s. Patient now requiring vasopressors to maintain maps in an effort to improve renal perfusion. Patient transferred to the ICU for ongoing care. Upon evaluation in the ICU, patient is awake, alert, and oriented. He complains of pain in the LEFT upper quadrant which she states has been consistent since h is admission. He does report that his nausea has improved with NG tube placement. Despite his tachycardia and hypotension, the patient denies feeling palpitations. He occasionally feels lightheaded. Patient reports that prior to admission he had been having multiple loose stools, but states that he has not had a bowel movement since admission. He does endorse a family history of hypertriglyceridemia, but is on certain of any significant familial diagnosis otherwise. Allergies Allergy/AdvReac Type Severity Reaction Status Date / Time No Known Allergies Allergy Verified 09/28/21 00:51 Home Medications Medication Instructions Recorded Confirmed Type atorvastatin 10 mg tablet 10 mg PO HS 09/28/21 10/07/21 History cholestyramine-aspartame 4 gram 4 g PO DAILY PRN 30 Days #30 ea 09/28/21 10/07/21 Rx oral powder for susp in a packet (Cholestyramine Light) dextroamphetamine-amphetamine ER 30 mg PO DAILY 09/28/21 10/07/21 History 30 mg 24hr capsule,extend release hydrochlorothiazide 12.5 mg capsule 12.5 mg PO DAILY 09/28/21 10/07/21 History lisinopril 20 mg tablet 20 mg PO DAILY 09/28/21 10/07/21 History metformin 500 mg tablet 1,000 mg PO BID 09/28/21 10/07/21 History metoprolol succinate 100 mg 100 mg PO DAILY 09/28/21 10/07/21 History tablet,extended release 24 hr testosterone cypionate 200 mg/mL 200 mg IM .[id number] 09/28/21 10/07/21 History intramuscular oil venlafaxine 75 mg tablet 75 mg PO BID 09/28/21 10/07/21 History fenofibrate micronized 43 mg 43 mg PO DAILY 10/07/21 10/07/21 History capsule Patient History Medical History Diabetes High blood pressure Surgical History History of orthopedic surgery Social History Smoking Status: Never smoker Second Hand Exposure: No; Hx Alcohol Use: No Hx Substance Use: No Preferred Language: Kiswahili Communication Ability: Effective Load Out Person Required: No Current Living Situation: Alone Feels Safe at Home: Yes Assistive Devices: None Review of Systems Review of Systems: A complete 10 point review of systems was reviewed with the patient with pertinent positives and negatives as per history of present ill ness. All else were negative. Physical Exam Physical Exam: VITAL SIGNS - Vital signs and nursing notes were reviewed. GENERAL - 41-year-old male appearing his stated age who is uncomfortable appearing. Communicates well with provider and answers questions appropriately. HEAD - NC/AT. EYES - PERRL with EOMI bilaterally. Sclera anicteric. Palpebral conjunctiva pink and moist with no injection noted. EARS - No deformities of external structures noted on gross examination bilaterally. NOSE - Midline and without cyanosis. MOUTH/OROPHARYNX - Without perioral cyanosis. Buccal mucosa pink and moist. NECK - Neck with FROM. Supple to palpation. No nuchal rigidity. LUNGS - Chest wall symmetric without accessory muscle use, intercostals retractions, or central cyanosis. Normal vesicular breath sounds CTA B/L. No wheezes, rales, or rhonchi appreciated. CARDIAC - RRR with S1/S2. No murmur, rubs, or gallops appreciated. ABDOMEN - Abdominal contour distended without pulsations or visible masses. BS hypoactive all four quadrants. Moderate tenderness to palpation appreciated in the LEFT upper quadrant. Mild guarding. No palpable masses, hepatosplenomegaly, or ascites noted. EXTREMITIES - No clubbing or peripheral cyanosis. No pretibial edema present. +3/5 radial and dorsalis pedis pulses palpated throughout. +5/5 strength noted in UE/LE bilaterally. NEUROLOGIC - Cranial nerves II through XII grossly intact. PSYCH - A&Ox3 and cooperates fully with examiner. Pt is very pleasant and interacts well with examiner. Results & Data Results & Data ([facility]) Vital Signs (Past 12 Hours) Vital Signs Temp Pulse Pulse Resp BP BP Pulse Ox 10/09/21 00:36 135 H 10/08/21 23:27 36.9 C 131 H 19 78/50 L 64/46 L 94 10/08/21 19:35 37.0 C 94 H 20 107/67 96 10/08/21 15:47 36.7 C 122 H 20 93/73 L 93 10/08/21 15:10 120 H Coding Level of Care Code Critical Care 1st 30-74 mins Diagnoses Admitted to intensive care unit Z78.9 Pancreatitis K85.90 Hypertriglyceridemia E78.1 High blood pressure I10 MARCELINA (obstructive sleep apnea) G47.33 JE (acute kidney injury) N17.9 Time Spent (min) 55
[2021-10-09] MEDS ORDERED: MAGNESIUM SULFATE / D5W 1 GM/100 ML BAG IV ONE (02:24)
[2021-10-09] MEDS ORDERED: CALCIUM GLUCONATE 10% 1,000 MG in SODIUM CHLORIDE 0.9% 50 ML IV ONE (02:30)
--- NOTE | 2021-10-09 03:08 | Communication Note ---
Date of Service: October 09, 2021 Subjective: Nursing notified me that they were going to give the patient Dilaudid for abdominal pain when he was noted to have a BP into the 60's systolic consistently low on recheck. Pt. was signed out as a pancreatitis 2/2 elevated triglycerides that had been discharged and then re-admitted. He has had normal bp in the past. He was being treated with insulin and getting dextrose containing fluids since admissions with improvement in his triglycerides and stable blood sugars. There was concern for fluid overload and his fluids were slowed from [id number]/hr. He has also had increased distension of his abdomen over 10/08 which he explained is improved from earlier in the day. He has remained afebrile and CT a/p has not shown any signs of pancreatic abscess or cyst formation but did note increased fat stranding. He was oriented on exam but did note some lightheadedness. His creatinine has become elevated to > 4 on most recent labs. Objective: vitals - BP 64/46 HR130 PE - General: uncomfortable sitting in bed, NG in place Cardiac: tachy, regular, 1-2 + pitting edema Pulm.: crackles appreciated R>L Abd: tender throughout, distended, no bowel sounds appreciated, no guarding A/P: Hypotension of unclear etiology: Potentially septic although no clear source with no signs of abscess or pseudocyst on CT, no increased oxygen requirement or fevers or elevated wbc - Given hypotension with fluid overload discussed case with Bahman Gordon with ICU who agreed to accept the patient to the ICU for pressure support.
[2021-10-09] MEDS: SODI CHLOR 2.5MEQ/ML 14.6% 77 MEQ in DEXTROSE 10% 1,000 ML IV SCH ×2 (03:09→15:59)
[2021-10-09] MEDS: HYDROmorphone INJ 1 MG/ML SYRINGE IV PRN ×3 (03:59→08:31)
[2021-10-09 06:16] LABS: Hematocrit (blood only) 46.1 % (42-52); Hemoglobin 15.3 g/dL (14.0-18.0); Mean Corpuscular Hemoglobin 28.1 pg (25-34); Mean Corpuscular Volume 84.6 fL (80-100); Mean Platelet Volume 9.8 fL (7.4-10.4); Platelet Count 290 K/uL (130-400); RDW Coefficient of Variation 14.4 % (11.5-14.5); RDW Standard Deviation 44.4 fL (36.4-46.3); Red Blood Count 5.45 M/uL (4.7-6.1); White Blood Count 8.68 K/uL (4.8-10.8)
[2021-10-09 06:30] LABS: Mean Corpuscular Hgb Conc 33.2 g/dL (32-36)
[2021-10-09 07:15] LABS: Basophils # (auto) 0.02 K/uL (0-0.2); Basophils % (auto) 0.2 %; Dohle Bodies 1+; Eosinophils # (auto) 0.02 K/uL (0-0.5); Eosinophils % (auto) 0.2 %; Immature Granulocytes # (auto) 0.04 K/uL (0.00-0.02); Immature Granulocytes % (auto) 0.5 %; Lymphocytes % (auto) 19.6 %; Monocytes # (auto) 0.27 K/uL (0.11-0.59); Monocytes % (auto) 3.1 %; Neutrophils # (auto) 6.63 K/uL (1.4-6.5); Neutrophils % (auto) 76.4 %
[2021-10-09 07:17] LABS: Calcium 6.1 mg/dl (8.5-10.1); Creatinine Clr Calc Pharmacy 27.6 ml/min; Est GFR (African American) 16.5 ml/min; Est GFR (Non-African American) 14.3 ml/min; Phosphorus 0.9 mg/dl (2.5-4.9); Potassium 4.5 mmol/L (3.5-5.1)
--- NOTE | 2021-10-09 07:31 | Hospitalist Progress Note ---
Date of Service October 09, 2021 Assessment & Plan (1) Pancreatitis: Plan: Acute pancreatitis with peripancreatic edema, ?ileus/gastric outlet obs No leukocytosis - 2/2 hypertriglyceridemia Triglycerides 3000 on admission, downtrending to 2495 Lipase greater than 21,[address] with contrast 09/28: Mild peripancreatic inflammatory change surrounding pancreatic tail consistent with acute pancreatitis. No signs of abscess or pseudocyst at that time Discussed with radiology pt with JE on admission with postrenal retention but worsening abd symptoms, and necessity of contrast for visualization. Recommended CT with IV contrast to reevaluate for pancreatic necrosis/abscess, but with a half contrast dose will proceed with CT. IV fluids initially lactated Ringer's, converted to D5 NSS plus KCl for titration with insulin drip. Converted to [id number] to minimize volume currently @80cc/hr US limited due to overlying bowel gas and body habitus, nondiagnostic - Stop insulin drip if triglycerides < 500 - Initial concern for Abdominal CS--> Abdomen tensely distended on exam with worsening renal function, severe edema. Surgery consulted, did not recommend surgical intervention/ decompression. NGT placed 10/08, KUB confirmed placement. Placed to LIS. Minimal output, advanced 2cm with positive fluid return. - Pt transferred to ICU w/ progressive hypotension, worsening ARF, and severe edema. Remains on phyenylephrine - Pt currently unable to be transferred for apheresis due to bed availability: [place] status as follows > [facility] [place] [facility], however at capacity --> On wait list and they will call daily with status. >[facility] Dr. Ewing --> Placed on waitlist, will notify if bed available. > [facility] No beds at all 7 facilities. On wait list, not accepted, will call if bed opens up. (2) JE (acute kidney injury): Plan: JE/ARF Creatinine increased from 1.29 on admission, normal at baseline, rapid uptrend - Initial concern for post-renal, bladder decompressed. Nephro consulted. Consistent with ATN. - Beasley placed following admission - Lisinopril/hctz held - On pressors as above - Temporary dialysis catheter being placed at time of initial visit - Nephrology consulted. BID BMP (3) MARCELINA (obstructive sleep apnea): Plan: MARCELINA - Continue home nighttime BiPAP - Pt denies history of other lung disease, no hx of oxygen requirement, no hypercarbia on admission If limited by NGT, oxmask overnight with spo2 goal >90%, (4) Hypertriglyceridemia: Plan: Hyperlipidemia held Atorvastatin 10 mg p.o. nightly held Fenofibrate - see pancreatitis above (5) Diabetes mellitus with hyperglycemia: Plan: - On insulin drip for hypertriglyceridemia as above (6) Abdominal pain: Plan: see above (7) High blood pressure: Plan: Hx hypertension, hypotensive during admit Lisinopril held for JE Hydrochlorothiazide held for JE - MTP held for hypotension, on pressor support Plan: Diet: N.p.o, NGT DVT prophylaxis: Lovenox CODE STATUS: Full code Admission and Anticipated Discharge Date Admission Date: October 07, 2021 Subjective Transferred to ICU overnight with ongoing hypotension. Feels his pain is improved since switching to hydromorphone [employer]. Seen by nephrology, aware that he require dialysis.Continues to have abdominal distention/bloating. Feels stomach bloating slightly less than prior, but mostly unchanged. Review of Systems Review of Systems: All systems reviewed & are unremarkable except as noted in Subjective Physical Exam Physical Exam: General: A&Ox3. NAD, appears ill. Cooperative. HEENT: Atraumatic, normocephalic. Visual acuity grossly intact, NGT in place. Pulm: Symmetrical chest rise. No increase work of breathing. No respiratory distress. Cardiac: tachycardic, -mrg. Radial pulses intact and symmetrical. Abdominal: Distended, tympanitic, TTP at LUQ. No rebound/guarding. Results & Data Results & Data ([facility]) Vital Signs (Past 12 Hours) Vital Signs Temp Pulse Pulse Resp BP BP BP 10/09/21 07:00 123 H 21 10/09/21 06:45 122 H 20 10/09/21 06:30 123 H 19 10/09/21 06:15 124 H 31 H 10/09/21 06:00 124 H 24 97/69 L 10/09/21 05:45 124 H 34 H 10/09/21 05:31 122 H 29 H 95/62 L 10/09/21 05:15 122 H 32 H 10/09/21 05:00 121 H 34 H 10/09/21 04:45 123 H 25 H 10/09/21 04:30 123 H 33 H 10/09/21 04:15 123 H 27 H 101/60 10/09/21 04:00 126 H 25 H 10/09/21 03:45 127 H 26 H 10/09/21 03:30 127 H 30 H 106/81 10/09/21 03:15 127 H 34 H 111/73 10/09/21 03:00 127 H 33 H 103/79 10/09/21 02:45 127 H 20 109/80 10/09/21 02:30 127 H 20 98/78 L 10/09/21 02:15 128 H 19 100/73 10/09/21 02:00 128 H 16 115/63 10/09/21 01:45 130 H 21 90/69 L 10/09/21 01:30 131 H 28 H 106/62 10/09/21 01:15 135 H 29 H 94/59 L 10/09/21 01:00 135 H 33 H 88/58 L 10/09/21 00:45 134 H 16 91/64 L 10/09/21 00:36 135 H 10/09/21 00:30 135 H 21 91/64 L 10/09/21 00:15 134 H 13 89/59 L 10/08/21 23:27 36.9 C 131 H 19 78/50 L 64/46 L 10/08/21 19:35 37.0 C 94 H 20 107/67 Pulse Ox 10/09/21 07:00 97 10/09/21 06:45 94 10/09/21 06:30 96 10/09/21 06:15 95 10/09/21 06:00 95 10/09/21 05:45 95 10/09/21 05:31 95 10/09/21 05:15 94 10/09/21 05:00 95 10/09/21 04:45 95 10/09/21 04:30 95 10/09/21 04:15 95 10/09/21 04:00 96 10/09/21 03:45 96 10/09/21 03:30 96 10/09/21 03:15 96 10/09/21 03:00 95 10/09/21 02:45 96 10/09/21 02:30 95 10/09/21 02:15 96 10/09/21 02:00 96 10/09/21 01:45 95 10/09/21 01:30 95 10/09/21 01:15 95 10/09/21 01:00 93 10/09/21 00:45 94 10/09/21 00:36 10/09/21 00:30 94 10/09/21 00:15 10/08/21 23:27 94 10/08/21 19:35 96 PG Care Time/CCT Total # of Minutes Spent Total Time Spent with Patient: Total time spent is greater than 50% in coordination of care (as documented) at patient's floor/unit and/or counseling patient: Coding Level of Care Code 45186 Subseq Hosp Care Lvl 1 Diagnoses Pancreatitis K85.90 JE (acute kidney injury) N17.9 MARCELINA (obstructive sleep apnea) G47.33 Hypertriglyceridemia E78.1 Diabetes mellitus with hyperglycemia E11.65 Abdominal pain R10.9 High blood pressure I10
[2021-10-09 07:33] LABS: Beta-Hydroxybutyrate 1.46 mg/dl (0.2-2.81)
--- NOTE | 2021-10-09 07:43 | Ultrasound Report ---
US duplex renal artery CLINICAL HISTORY: Elevated blood pressure. Assess for renal artery stenosis. COMPARISON STUDY: Abdomen and pelvis CT 10/08/2021. FINDINGS: The renal arteries were not visualized due to overlying bowel gas. Distal bilateral renal v eins appear patent. Resistive indices of the renal arcuate arteries are within normal limits. No hydr onephrosis. Hepatic steatosis is noted. IMPRESSION: 1. The renal arteries were nonvisualized due to overlying bowel gas. 2. Normal kidneys. 3. Hepatic steatosis. ACT 112: Negative or not required by law. Electronically signed by: Dano Melchor M.D. 10/09/2021 7:42 AM
[2021-10-09] MEDS ORDERED: NALOXONE HCL 0.4 MG/1 ML VIAL/CARP IV PRN (07:58)
[2021-10-09] MEDS: VENLAFAXINE HCL 75 MG TAB PO SCH ×2 (08:44→20:22)
[2021-10-09] MEDS: SODIUM CHLORIDE 0.9% 1000ML 1,000 ML IV SCH (09:36)
[2021-10-09] MEDS: HYDROmorphone PCA 30 MG/30 ML IV PRN (09:36)
--- NOTE | 2021-10-09 10:12 | Gastrointestinal Consultation ---
Date of Consultation October 09, 2021 Assessment & Plan (1) Pancreatitis: -Continue aggressive IV fluid hydration. -Pain management per primary team. -Keep NPO. Given severity of pancreatitis and need for prolonged NPO status, consider waste disposal leakage tester consult for parenteral feeding recommendations. -Continue Insulin drip and continue to monitor serum triglycerides at least until Triglycerides drop below 500. -Agree with nephrology consult. -Will likely need short term imaging follow-up. -Will defer outpatient lipid management plans to medicine team. -Supportive care per primary team. Supervising Physician Co-Signing Physician Notes I personally evaluated the patient and agree with the findings as documented by Angie Adler, PAC Exam: abd: soft, moderate diffuse tenderness, nd consider enteral feeding via dobhoff tube vs. parenteral nutrition if not able to tolerate PO intake in the next 24 hours. severe pancreatitis with multiorgan dysfunction, would benefit from plasmapheresis if not able to reduce triglycerides below 500 using insulin drip History of Present Illness Attending Physician: Néstor Villareal MD History of Present Illness Patient is a 41 yo male with a PMH of hyperlipidemia, DM2, and HTN who presented to the ED on 09/28/21 due to severe abdominal pain. He was noted to have pancreatic tail inflammation on CT scan. GB US was unremarkable for issues contributing to pancreatitis. Labs were unremarkable with the exception of an elevated glucose to 300 and triglyceride level of 832. He was stable and improved with pain medications. He was discharged home. He reports that while he was fine at home for several days, he eventually developed severe abdominal pain after eating a full meal. The pain is reportedly 7-10/10 pain in the epigastric area but also can be LUQ. He denies fever or chills as well as nausea & vomiting. He acknowledges diarrhea. He denies alcohol consumption. No family history of pancreatic issues. He reports that his pain became severe enough that he returned to the ED. Due to worsening symptoms and findings, he has been admitted. The patient has had a CT scan that indicates significant progression of moderate peripancreatic edema which actually extends in to the pararenal spaces, paracolic gutter, & central mesentery--findings consistent with pancreatitis but without necrosis. Also noted was an ileus vs PSBO. Patient has an NG and it continues to drain bile. Triglycerides were 3,287, but have now declined to 1,007. Lipase peaked at 21,794 and is now 4,143. AST mildly elevated at 40, but ALT unremarkable. Bilirubin within normal limits. Unfortunately his renal function is notably abnormal with a creatinine of 4.69. Glucose 352 this AM. Patient's lipase level was reported to be greater than 15,000. He did have a Covid test that was performed and noted to be negative. A urinalysis was not indicative of infection. No repeat imaging was pursued at this time. Patient notes that he has struggled with lipid management as an outpatient. He takes Atorvastatin 10 mg po at bedtime. He notes he has not been great with checking his blood sugars so he is not sure where he has been in terms of ranges. At the time of my visit, patient notes that he doesn't have pain when he is still, but develops severe abdominal pain with movement. Allergies Allergy/AdvReac Type Severity Reaction Status Date / Time No Known Allergies Allergy Verified 09/28/21 00:51 Home Medications Medication Instructions Recorded Confirmed Type atorvastatin 10 mg tablet 10 mg PO HS 09/28/21 10/07/21 History cholestyramine-aspartame 4 gram 4 g PO DAILY PRN 30 Days #30 ea 09/28/21 10/07/21 Rx oral powder for susp in a packet (Cholestyramine Light) dextroamphetamine-amphetamine ER 30 mg PO DAILY 09/28/21 10/07/21 History 30 mg 24hr capsule,extend release hydrochlorothiazide 12.5 mg capsule 12.5 mg PO DAILY 09/28/21 10/07/21 History lisinopril 20 mg tablet 20 mg PO DAILY 09/28/21 10/07/21 History metformin 500 mg tablet 1,000 mg PO BID 09/28/21 10/07/21 History metoprolol succinate 100 mg 100 mg PO DAILY 09/28/21 10/07/21 History tablet,extended release 24 hr testosterone cypionate 200 mg/mL 200 mg IM .[id number] 09/28/21 10/07/21 History intramuscular oil venlafaxine 75 mg tablet 75 mg PO BID 09/28/21 10/07/21 History fenofibrate micronized 43 mg 43 mg PO DAILY 10/07/21 10/07/21 History capsule Patient History Medical History Diabetes High blood pressure Surgical History History of orthopedic surgery Social History Smoking Status: Never smoker Second Hand Exposure: No; Hx Alcohol Use: No Hx Substance Use: No Preferred Language: Welsh Communication Ability: Effective Level Vial Inspector And Tester Required: No Current Living Situation: Alone Feels Safe at Home: Yes Assistive Devices: None Review of Systems Constitutional: + anorexia; no fever and no chills Respiratory: no cough and no dyspnea Cardiovascular: no chest pain Gastrointestinal: + abdominal pain and + diarrhea/loose stools; no heartburn, no nausea, no vomiting and no blood in stools Musculoskeletal: no problem reported Integumentary: no problem reported Neurologic: no problem reported Psychiatric: no problem reported Hematologic / Lymphatic: no unexplained weight loss Physical Exam Constitutional: + ill appearing and + obese; no acute distress Respiratory: normal respiratory effort, lungs clear to auscultation Cardiovascular: Rate/Rhythm: regular rate and regular rhythm Gastrointestinal (Abdomen): Inspection/Auscultation: + abdomen distended and normal bowel sounds (good bowel sounds noted) Percussion/Palpation: + abdomen tender Musculoskeletal: Head/Neck/Chest: normocephalic Psychiatric: Orientation: alert and oriented x 3 Results & Data ([facility]) Vital Signs (Past 12 Hours) Vital Signs Temp Pulse Pulse Resp BP BP BP 10/09/21 07:00 123 H 21 10/09/21 06:45 122 H 20 10/09/21 06:30 123 H 19 10/09/21 06:15 124 H 31 H 10/09/21 06:00 124 H 24 97/69 L 10/09/21 05:45 124 H 34 H 10/09/21 05:31 122 H 29 H 95/62 L 10/09/21 05:15 122 H 32 H 10/09/21 05:00 121 H 34 H 10/09/21 04:45 123 H 25 H 10/09/21 04:30 123 H 33 H 10/09/21 04:15 123 H 27 H 101/60 10/09/21 04:00 126 H 25 H 10/09/21 03:45 127 H 26 H 10/09/21 03:30 127 H 30 H 106/81 10/09/21 03:15 127 H 34 H 111/73 10/09/21 03:00 127 H 33 H 103/79 10/09/21 02:45 127 H 20 109/80 10/09/21 02:30 127 H 20 98/78 L 10/09/21 02:15 128 H 19 100/73 10/09/21 02:00 128 H 16 115/63 10/09/21 01:45 130 H 21 90/69 L 10/09/21 01:30 131 H 28 H 106/62 10/09/21 01:15 135 H 29 H 94/59 L 10/09/21 01:00 135 H 33 H 88/58 L 10/09/21 00:45 134 H 16 91/64 L 10/09/21 00:36 135 H 10/09/21 00:30 135 H 21 91/64 L 10/09/21 00:15 134 H 13 89/59 L 10/08/21 23:27 36.9 C 131 H 19 78/50 L 64/46 L Pulse Ox 10/09/21 07:00 97 10/09/21 06:45 94 10/09/21 06:30 96 10/09/21 06:15 95 10/09/21 06:00 95 10/09/21 05:45 95 10/09/21 05:31 95 10/09/21 05:15 94 10/09/21 05:00 95 10/09/21 04:45 95 10/09/21 04:30 95 10/09/21 04:15 95 10/09/21 04:00 96 10/09/21 03:45 96 10/09/21 03:30 96 10/09/21 03:15 96 10/09/21 03:00 95 10/09/21 02:45 96 10/09/21 02:30 95 10/09/21 02:15 96 10/09/21 02:00 96 10/09/21 01:45 95 10/09/21 01:30 95 10/09/21 01:15 95 10/09/21 01:00 93 10/09/21 00:45 94 10/09/21 00:36 10/09/21 00:30 94 10/09/21 00:15 10/08/21 23:27 94 PG Care Time/CCT Total # of Minutes Spent Total Time Spent with Patient: Total time spent is greater than 50% in coordination of care (as documented) at patient's floor/unit and/or counseling patient: Coding Level of Care Code 02641 Inpt Consult Level 4 Diagnoses Pancreatitis K85.90
--- NOTE | 2021-10-09 10:35 | Surgery Progress Note ---
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 covering this weekend Dr. Ponce has seen and examined pt, agrees with above. Admission and Anticipated Discharge Date Admission Date: October 07, 2021 Subjective patient transferred to ICU overnight due to hypotention and requiring IV pressor support still having moderate to severe pain with movement, TRA[employer]EL J[employer]RNA[employer] helping with pain management no flatus or bowel movement distention/bloating feels about the same as yesterday, not much improvement with the NGT per patient Physical Exam Constitutional: + ill appearing, + obese and cooperative; no acute distress Respiratory: normal respiratory effort; no respiratory distress, no labored breathing and no retractions Gastrointestinal (Abdomen): Inspection/Auscultation: + abdomen distended (moderate distention) and + hypoactive bowel sounds Percussion/Palpation: + abdomen tender (throughout upper abdomen), abdomen soft and + abdomen firm (slightly given distention); abdomen not rigid NGT cannister with bilious output about 800 cc Skin: no rashes, warm and dry Psychiatric: Orientation: alert and oriented x 3 Results & Data ([facility]) Vital Signs (Past 12 Hours) Vital Signs Temp Pulse Pulse Resp BP BP BP 10/09/21 07:00 123 H 21 10/09/21 06:45 122 H 20 10/09/21 06:30 123 H 19 10/09/21 06:15 124 H 31 H 10/09/21 06:00 124 H 24 97/69 L 10/09/21 05:45 124 H 34 H 10/09/21 05:31 122 H 29 H 95/62 L 10/09/21 05:15 122 H 32 H 10/09/21 05:00 121 H 34 H 10/09/21 04:45 123 H 25 H 10/09/21 04:30 123 H 33 H 10/09/21 04:15 123 H 27 H 101/60 10/09/21 04:00 126 H 25 H 10/09/21 03:45 127 H 26 H 10/09/21 03:30 127 H 30 H 106/81 10/09/21 03:15 127 H 34 H 111/73 10/09/21 03:00 127 H 33 H 103/79 10/09/21 02:45 127 H 20 109/80 10/09/21 02:30 127 H 20 98/78 L 10/09/21 02:15 128 H 19 100/73 10/09/21 02:00 128 H 16 115/63 10/09/21 01:45 130 H 21 90/69 L 10/09/21 01:30 131 H 28 H 106/62 10/09/21 01:15 135 H 29 H 94/59 L 10/09/21 01:00 135 H 33 H 88/58 L 10/09/21 00:45 134 H 16 91/64 L 10/09/21 00:36 135 H 10/09/21 00:30 135 H 21 91/64 L 10/09/21 00:15 134 H 13 89/59 L 10/08/21 23:27 36.9 C 131 H 19 78/50 L 64/46 L Pulse Ox 10/09/21 07:00 97 10/09/21 06:45 94 10/09/21 06:30 96 10/09/21 06:15 95 10/09/21 06:00 95 10/09/21 05:45 95 10/09/21 05:31 95 10/09/21 05:15 94 10/09/21 05:00 95 10/09/21 04:45 95 10/09/21 04:30 95 10/09/21 04:15 95 10/09/21 04:00 96 10/09/21 03:45 96 10/09/21 03:30 96 10/09/21 03:15 96 10/09/21 03:00 95 10/09/21 02:45 96 10/09/21 02:30 95 10/09/21 02:15 96 10/09/21 02:00 96 10/09/21 01:45 95 10/09/21 01:30 95 10/09/21 01:15 95 10/09/21 01:00 93 10/09/21 00:45 94 10/09/21 00:36 10/09/21 00:30 94 10/09/21 00:15 10/08/21 23:27 94 Laboratory Results 10/09/21 10/09/21 10/09/21 Range/Units 10:02 08:14 07:12 WBC (4.8-10.8) K/uL RBC (4.7-6.1) M/uL Hgb (14.0-18.0) g/dL Hct (42-52) % MCV (80-100) fL MCH (25-34) pg MCHC (32-36) g/dL RDW Std Deviation (36.4-46.3) fL RDW Coeff of Vickie (11.5-14.5) % Plt Count (130-400) K/uL MPV (7.4-10.4) fL Immature Gran % (Auto) % Neut % (Auto) % Lymph % (Auto) % [place] % (Auto) % Eos % (Auto) % Baso % (Auto) % Neut # (Auto) (1.4-6.5) K/uL Lymph # (Auto) (1.2-3.4) K/uL [place] # (Auto) (0.11-0.59) K/uL Eos # (Auto) (0-0.5) K/uL Baso # (Auto) (0-0.2) K/uL Immature Gran # (Auto) (0.00-0.02) K/uL Absolute Nucleated RBC Nucleated RBC % (auto) Neutrophils % (Manual) Band Neutrophils % Lymphocytes % (Manual) Prolymphocyte % Reactive Lymphs % (Man) Monocytes % (Manual) Eosinophils % (Manual) Basophils % (Manual) Metamyelocytes % (Man) Myelocytes % (Man) Promyelocytes % (Man) Blast Cells % (Manual) Plasma Cell % (Manual) Other Cells % Nucleated RBC % Neutrophils # (Manual) Band Neutrophils # Total Absolute Neuts Lymphocytes # (Manual) Prolymphocyte # Reactive Lymphs # Total Abs Lymphocytes Monocytes # (Manual) Eosinophils # (Manual) Basophils # (Manual) Metamyelocytes # (Man) Myelocytes # (Manual) Promyelocytes # (Man) Blast Cells # (Man) Plasma Cell # (Manual) Other Cells # Nucleated RBCs # (Man) Hypersegmented Neuts Hyposegmented Neuts Hypogranular Neuts Large Granular Lymphs # Lrg Granular Lymphs Hairy Cells Smudge Cells Toxic Granulation Toxic Vacuolation Dohle Bodies Ryan Rods Platelet Estimate Hypogranular Platelets Clumped Platelets Giant Platelets Platelet Satelliting RBC Morphology Polychromasia Hypochromasia Poikilocytosis Basophilic Stippling Anisocytosis Microcytosis Macrocytosis Spherocytes Pappenheimer Bodies Sickle Cells Target Cells Tear Drop Cells Ovalocytes Stomatocytes Castro-Folcroft Bodies Echinocytes Acanthocytes (Spur) Rouleaux RBC Agglutinates Schistocytes RBC Morph Comment Sezary Cell Sodium (136-145) mmol/L Potassium (3.5-5.1) mmol/L Chloride (98-107) mmol/L Carbon Dioxide (21-32) mmol/L Anion Gap (3-11) BUN (7-18) mg/dl Creatinine (0.6-1.4) mg/dl Est Cr Clr Drug Dosing ml/min Est GFR ( Amer) ml/min Est GFR (Non-Af Amer) ml/min BUN/Creatinine Ratio (10-20) Glucose (70-99) mg/dl POC Glucose 169 H 166 H 183 H (70-99) mg/dl Lactate (0.4-2.0) mmol/L Calcium (8.5-10.1) mg/dl Phosphorus (2.5-4.9) mg/dl Magnesium (1.8-2.4) mg/dl Total Bilirubin (0.2-1) mg/dl Direct Bilirubin (0-0.2) mg/dl AST (15-37) U/L ALT (12-78) Alkaline Phosphatase (45-117) U/L Total Protein (6.4-8.2) gm/dl Albumin (3.4-5.0) gm/dl Globulin (2.5-4.0) gm/dl Albumin/Globulin Ratio (0.9-2) Triglycerides (0-150) mg/dl Lipase (73-393) U/L Beta-Hydroxybutyric Acd (0.2-2.81) mg/dl Procalcitonin (0-0.5) ng/ml Random Cortisol mcg/dl Nasal Screen MRSA (PCR) (Negative) 10/09/21 10/09/21 10/09/21 Range/Units 06:06 06:06 05:03 WBC 8.68 (4.8-10.8) K/uL RBC 5.45 (4.7-6.1) M/uL Hgb 15.3 (14.0-18.0) g/dL Hct 46.1 (42-52) % MCV 84.6 (80-100) fL MCH 28.1 (25-34) pg MCHC 33.2 (32-36) g/dL RDW Std Deviation 44.4 (36.4-46.3) fL RDW Coeff of Vickie 14.4 (11.5-14.5) % Plt Count 290 (130-400) K/uL MPV 9.8 (7.4-10.4) fL Immature Gran % (Auto) 0.5 % Neut % (Auto) 76.4 % Lymph % (Auto) 19.6 % [place] % (Auto) 3.1 % Eos % (Auto) 0.2 % Baso % (Auto) 0.2 % Neut # (Auto) 6.63 H (1.4-6.5) K/uL Lymph # (Auto) 1.70 (1.2-3.4) K/uL [place] # (Auto) 0.27 (0.11-0.59) K/uL Eos # (Auto) 0.02 (0-0.5) K/uL Baso # (Auto) 0.02 (0-0.2) K/uL Immature Gran # (Auto) 0.04 H (0.00-0.02) K/uL Absolute Nucleated RBC Nucleated RBC % (auto) Neutrophils % (Manual) Band Neutrophils % Lymphocytes % (Manual) Prolymphocyte % Reactive Lymphs % (Man) Monocytes % (Manual) Eosinophils % (Manual) Basophils % (Manual) Metamyelocytes % (Man) Myelocytes % (Man) Promyelocytes % (Man) Blast Cells % (Manual) Plasma Cell % (Manual) Other Cells % Nucleated RBC % Neutrophils # (Manual) Band Neutrophils # Total Absolute Neuts Lymphocytes # (Manual) Prolymphocyte # Reactive Lymphs # Total Abs Lymphocytes Monocytes # (Manual) Eosinophils # (Manual) Basophils # (Manual) Metamyelocytes # (Man) Myelocytes # (Manual) Promyelocytes # (Man) Blast Cells # (Man) Plasma Cell # (Manual) Other Cells # Nucleated RBCs # (Man) Hypersegmented Neuts Hyposegmented Neuts Hypogranular Neuts Large Granular Lymphs # Lrg Granular Lymphs Hairy Cells Smudge Cells Toxic Granulation Toxic Vacuolation Dohle Bodies 1+ Ryan Rods Platelet Estimate Hypogranular Platelets Clumped Platelets Giant Platelets Platelet Satelliting RBC Morphology Polychromasia Hypochromasia Poikilocytosis Basophilic Stippling Anisocytosis Microcytosis Macrocytosis Spherocytes Pappenheimer Bodies Sickle Cells Target Cells Tear Drop Cells Ovalocytes Stomatocytes Castro-Folcroft Bodies Echinocytes Acanthocytes (Spur) Rouleaux RBC Agglutinates Schistocytes RBC Morph Comment Sezary Cell Sodium 134 L Cancelled (136-145) mmol/L Potassium 4.5 D Cancelled (3.5-5.1) mmol/L Chloride 104 Cancelled (98-107) mmol/L Carbon Dioxide 21 Cancelled (21-32) mmol/L Anion Gap 9.0 Cancelled (3-11) BUN 28 H Cancelled (7-18) mg/dl Creatinine 4.69 H* D Cancelled (0.6-1.4) mg/dl Est Cr Clr Drug Dosing 27.6 Cancelled ml/min Est GFR ( Amer) 16.5 Cancelled ml/min Est GFR (Non-Af Amer) 14.3 Cancelled ml/min BUN/Creatinine Ratio 6.0 L Cancelled (10-20) Glucose 352 H* Cancelled (70-99) mg/dl POC Glucose (70-99) mg/dl Lactate (0.4-2.0) mmol/L Calcium 6.1 L Cancelled (8.5-10.1) mg/dl Phosphorus 0.9 L* Cancelled (2.5-4.9) mg/dl Magnesium 2.0 Cancelled (1.8-2.4) mg/dl Total Bilirubin (0.2-1) mg/dl Direct Bilirubin (0-0.2) mg/dl AST (15-37) U/L ALT (12-78) Alkaline Phosphatase (45-117) U/L Total Protein (6.4-8.2) gm/dl Albumin (3.4-5.0) gm/dl Globulin (2.5-4.0) gm/dl Albumin/Globulin Ratio (0.9-2) Triglycerides 1007 H Cancelled (0-150) mg/dl Lipase (73-393) U/L Beta-Hydroxybutyric Acd 1.46 (0.2-2.81) mg/dl Procalcitonin (0-0.5) ng/ml Random Cortisol mcg/dl Nasal Screen MRSA (PCR) (Negative) 10/09/21 10/09/21 10/09/21 Range/Units 05:03 04:35 03:38 WBC Cancelled (4.8-10.8) K/uL RBC Cancelled (4.7-6.1) M/uL Hgb Cancelled (14.0-18.0) g/dL Hct Cancelled (42-52) % MCV Cancelled (80-100) fL MCH Cancelled (25-34) pg MCHC Cancelled (32-36) g/dL RDW Std Deviation Cancelled (36.4-46.3) fL RDW Coeff of Vickie Cancelled (11.5-14.5) % Plt Count Cancelled (130-400) K/uL MPV Cancelled (7.4-10.4) fL Immature Gran % (Auto) Cancelled % Neut % (Auto) Cancelled % Lymph % (Auto) Cancelled % [place] % (Auto) Cancelled % Eos % (Auto) Cancelled % Baso % (Auto) Cancelled % Neut # (Auto) Cancelled (1.4-6.5) K/uL Lymph # (Auto) Cancelled (1.2-3.4) K/uL [place] # (Auto) Cancelled (0.11-0.59) K/uL Eos # (Auto) Cancelled (0-0.5) K/uL Baso # (Auto) Cancelled (0-0.2) K/uL Immature Gran # (Auto) Cancelled (0.00-0.02) K/uL Absolute Nucleated RBC Cancelled Nucleated RBC % (auto) Cancelled Neutrophils % (Manual) Cancelled Band Neutrophils % Cancelled Lymphocytes % (Manual) Cancelled Prolymphocyte % Cancelled Reactive Lymphs % (Man) Cancelled Monocytes % (Manual) Cancelled Eosinophils % (Manual) Cancelled Basophils % (Manual) Cancelled Metamyelocytes % (Man) Cancelled Myelocytes % (Man) Cancelled Promyelocytes % (Man) Cancelled Blast Cells % (Manual) Cancelled Plasma Cell % (Manual) Cancelled Other Cells % Cancelled Nucleated RBC % Cancelled Neutrophils # (Manual) Cancelled Band Neutrophils # Cancelled Total Absolute Neuts Cancelled Lymphocytes # (Manual) Cancelled Prolymphocyte # Cancelled Reactive Lymphs # Cancelled Total Abs Lymphocytes Cancelled Monocytes # (Manual) Cancelled Eosinophils # (Manual) Cancelled Basophils # (Manual) Cancelled Metamyelocytes # (Man) Cancelled Myelocytes # (Manual) Cancelled Promyelocytes # (Man) Cancelled Blast Cells # (Man) Cancelled Plasma Cell # (Manual) Cancelled Other Cells # Cancelled Nucleated RBCs # (Man) Cancelled Hypersegmented Neuts Cancelled Hyposegmented Neuts Cancelled Hypogranular Neuts Cancelled Large Granular Lymphs Cancelled # Lrg Granular Lymphs Cancelled Hairy Cells Cancelled Smudge Cells Cancelled Toxic Granulation Cancelled Toxic Vacuolation Cancelled Dohle Bodies Cancelled Ryan Rods Cancelled Platelet Estimate Cancelled Hypogranular Platelets Cancelled Clumped Platelets Cancelled Giant Platelets Cancelled Platelet Satelliting Cancelled RBC Morphology Cancelled Polychromasia Cancelled Hypochromasia Cancelled Poikilocytosis Cancelled Basophilic Stippling Cancelled Anisocytosis Cancelled Microcytosis Cancelled Macrocytosis Cancelled Spherocytes Cancelled Pappenheimer Bodies Cancelled Sickle Cells Cancelled Target Cells Cancelled Tear Drop Cells Cancelled Ovalocytes Cancelled Stomatocytes Cancelled Castro-Folcroft Bodies Cancelled Echinocytes Cancelled Acanthocytes (Spur) Cancelled Rouleaux Cancelled RBC Agglutinates Cancelled Schistocytes Cancelled RBC Morph Comment Cancelled Sezary Cell Cancelled Sodium (136-145) mmol/L Potassium (3.5-5.1) mmol/L Chloride (98-107) mmol/L Carbon Dioxide (21-32) mmol/L Anion Gap (3-11) BUN (7-18) mg/dl Creatinine (0.6-1.4) mg/dl Est Cr Clr Drug Dosing ml/min Est GFR ( Amer) ml/min Est GFR (Non-Af Amer) ml/min BUN/Creatinine Ratio (10-20) Glucose (70-99) mg/dl POC Glucose 161 H 141 H (70-99) mg/dl Lactate (0.4-2.0) mmol/L Calcium (8.5-10.1) mg/dl Phosphorus (2.5-4.9) mg/dl Magnesium (1.8-2.4) mg/dl Total Bilirubin (0.2-1) mg/dl Direct Bilirubin (0-0.2) mg/dl AST (15-37) U/L ALT (12-78) Alkaline Phosphatase (45-117) U/L Total Protein (6.4-8.2) gm/dl Albumin (3.4-5.0) gm/dl Globulin (2.5-4.0) gm/dl Albumin/Globulin Ratio (0.9-2) Triglycerides (0-150) mg/dl Lipase (73-393) U/L Beta-Hydroxybutyric Acd (0.2-2.81) mg/dl Procalcitonin (0-0.5) ng/ml Random Cortisol mcg/dl Nasal Screen MRSA (PCR) (Negative) 10/09/21 10/09/21 10/09/21 Range/Units 02:32 01:36 01:05 WBC (4.8-10.8) K/uL RBC (4.7-6.1) M/uL Hgb (14.0-18.0) g/dL Hct (42-52) % MCV (80-100) fL MCH (25-34) pg MCHC (32-36) g/dL RDW Std Deviation (36.4-46.3) fL RDW Coeff of Vickie (11.5-14.5) % Plt Count (130-400) K/uL MPV (7.4-10.4) fL Immature Gran % (Auto) % Neut % (Auto) % Lymph % (Auto) % [place] % (Auto) % Eos % (Auto) % Baso % (Auto) % Neut # (Auto) (1.4-6.5) K/uL Lymph # (Auto) (1.2-3.4) K/uL [place] # (Auto) (0.11-0.59) K/uL Eos # (Auto) (0-0.5) K/uL Baso # (Auto) (0-0.2) K/uL Immature Gran # (Auto) (0.00-0.02) K/uL Absolute Nucleated RBC Nucleated RBC % (auto) Neutrophils % (Manual) Band Neutrophils % Lymphocytes % (Manual) Prolymphocyte % Reactive Lymphs % (Man) Monocytes % (Manual) Eosinophils % (Manual) Basophils % (Manual) Metamyelocytes % (Man) Myelocytes % (Man) Promyelocytes % (Man) Blast Cells % (Manual) Plasma Cell % (Manual) Other Cells % Nucleated RBC % Neutrophils # (Manual) Band Neutrophils # Total Absolute Neuts Lymphocytes # (Manual) Prolymphocyte # Reactive Lymphs # Total Abs Lymphocytes Monocytes # (Manual) Eosinophils # (Manual) Basophils # (Manual) Metamyelocytes # (Man) Myelocytes # (Manual) Promyelocytes # (Man) Blast Cells # (Man) Plasma Cell # (Manual) Other Cells # Nucleated RBCs # (Man) Hypersegmented Neuts Hyposegmented Neuts Hypogranular Neuts Large Granular Lymphs # Lrg Granular Lymphs Hairy Cells Smudge Cells Toxic Granulation Toxic Vacuolation Dohle Bodies Ryan Rods Platelet Estimate Hypogranular Platelets Clumped Platelets Giant Platelets Platelet Satelliting RBC Morphology Polychromasia Hypochromasia Poikilocytosis Basophilic Stippling Anisocytosis Microcytosis Macrocytosis Spherocytes Pappenheimer Bodies Sickle Cells Target Cells Tear Drop Cells Ovalocytes Stomatocytes Castro-Folcroft Bodies Echinocytes Acanthocytes (Spur) Rouleaux RBC Agglutinates Schistocytes RBC Morph Comment Sezary Cell Sodium (136-145) mmol/L Potassium (3.5-5.1) mmol/L Chloride (98-107) mmol/L Carbon Dioxide (21-32) mmol/L Anion Gap (3-11) BUN (7-18) mg/dl Creatinine (0.6-1.4) mg/dl Est Cr Clr Drug Dosing ml/min Est GFR ( Amer) ml/min Est GFR (Non-Af Amer) ml/min BUN/Creatinine Ratio (10-20) Glucose (70-99) mg/dl POC Glucose 146 H 146 H (70-99) mg/dl Lactate 0.5 (0.4-2.0) mmol/L Calcium (8.5-10.1) mg/dl Phosphorus (2.5-4.9) mg/dl Magnesium (1.8-2.4) mg/dl Total Bilirubin (0.2-1) mg/dl Direct Bilirubin (0-0.2) mg/dl AST (15-37) U/L ALT (12-78) Alkaline Phosphatase (45-117) U/L Total Protein (6.4-8.2) gm/dl Albumin (3.4-5.0) gm/dl Globulin (2.5-4.0) gm/dl Albumin/Globulin Ratio (0.9-2) Triglycerides (0-150) mg/dl Lipase (73-393) U/L Beta-Hydroxybutyric Acd (0.2-2.81) mg/dl Procalcitonin (0-0.5) ng/ml Random Cortisol mcg/dl Nasal Screen MRSA (PCR) (Negative) 10/09/21 10/09/21 10/09/21 Range/Units 00:53 00:53 00:53 WBC (4.8-10.8) K/uL RBC (4.7-6.1) M/uL Hgb (14.0-18.0) g/dL Hct (42-52) % MCV (80-100) fL MCH (25-34) pg MCHC (32-36) g/dL RDW Std Deviation (36.4-46.3) fL RDW Coeff of Vickie (11.5-14.5) % Plt Count (130-400) K/uL MPV (7.4-10.4) fL Immature Gran % (Auto) % Neut % (Auto) % Lymph % (Auto) % [place] % (Auto) % Eos % (Auto) % Baso % (Auto) % Neut # (Auto) (1.4-6.5) K/uL Lymph # (Auto) (1.2-3.4) K/uL [place] # (Auto) (0.11-0.59) K/uL Eos # (Auto) (0-0.5) K/uL Baso # (Auto) (0-0.2) K/uL Immature Gran # (Auto) (0.00-0.02) K/uL Absolute Nucleated RBC Nucleated RBC % (auto) Neutrophils % (Manual) Band Neutrophils % Lymphocytes % (Manual) Prolymphocyte % Reactive Lymphs % (Man) Monocytes % (Manual) Eosinophils % (Manual) Basophils % (Manual) Metamyelocytes % (Man) Myelocytes % (Man) Promyelocytes % (Man) Blast Cells % (Manual) Plasma Cell % (Manual) Other Cells % Nucleated RBC % Neutrophils # (Manual) Band Neutrophils # Total Absolute Neuts Lymphocytes # (Manual) Prolymphocyte # Reactive Lymphs # Total Abs Lymphocytes Monocytes # (Manual) Eosinophils # (Manual) Basophils # (Manual) Metamyelocytes # (Man) Myelocytes # (Manual) Promyelocytes # (Man) Blast Cells # (Man) Plasma Cell # (Manual) Other Cells # Nucleated RBCs # (Man) Hypersegmented Neuts Hyposegmented Neuts Hypogranular Neuts Large Granular Lymphs # Lrg Granular Lymphs Hairy Cells Smudge Cells Toxic Granulation Toxic Vacuolation Dohle Bodies Ryan Rods Platelet Estimate Hypogranular Platelets Clumped Platelets Giant Platelets Platelet Satelliting RBC Morphology Polychromasia Hypochromasia Poikilocytosis Basophilic Stippling Anisocytosis Microcytosis Macrocytosis Spherocytes Pappenheimer Bodies Sickle Cells Target Cells Tear Drop Cells Ovalocytes Stomatocytes Castro-Folcroft Bodies Echinocytes Acanthocytes (Spur) Rouleaux RBC Agglutinates Schistocytes RBC Morph Comment Sezary Cell Sodium 134 L (136-145) mmol/L Potassium 5.8 H D (3.5-5.1) mmol/L Chloride 105 (98-107) mmol/L Carbon Dioxide 22 (21-32) mmol/L Anion Gap 8.0 (3-11) BUN 27 H (7-18) mg/dl Creatinine 4.36 H (0.6-1.4) mg/dl Est Cr Clr Drug Dosing 29.8 ml/min Est GFR ( Amer) 18.1 ml/min Est GFR (Non-Af Amer) 15.6 ml/min BUN/Creatinine Ratio 6.2 L (10-20) Glucose 161 H (70-99) mg/dl POC Glucose (70-99) mg/dl Lactate (0.4-2.0) mmol/L Calcium 6.3 L (8.5-10.1) mg/dl Phosphorus 0.8 L* D (2.5-4.9) mg/dl Magnesium 1.7 L (1.8-2.4) mg/dl Total Bilirubin 0.6 (0.2-1) mg/dl Direct Bilirubin 0.2 (0-0.2) mg/dl AST 40 H (15-37) U/L ALT 26 (12-78) Alkaline Phosphatase 66 (45-117) U/L Total Protein 7.1 (6.4-8.2) gm/dl Albumin 2.8 L (3.4-5.0) gm/dl Globulin (2.5-4.0) gm/dl Albumin/Globulin Ratio (0.9-2) Triglycerides 1171 H (0-150) mg/dl Lipase 4143 H (73-393) U/L Beta-Hydroxybutyric Acd (0.2-2.81) mg/dl Procalcitonin 13.85 H (0-0.5) ng/ml Random Cortisol 54.78 mcg/dl Nasal Screen MRSA (PCR) (Negative) 10/09/21 10/09/21 10/09/21 Range/Units 00:53 00:40 00:38 WBC 8.34 (4.8-10.8) K/uL RBC 5.81 (4.7-6.1) M/uL Hgb 16.6 (14.0-18.0) g/dL Hct 49.4 (42-52) % MCV 85.0 (80-100) fL MCH 28.6 (25-34) pg MCHC 33.6 (32-36) g/dL RDW Std Deviation 44.2 (36.4-46.3) fL RDW Coeff of Vickie 14.3 (11.5-14.5) % Plt Count 274 (130-400) K/uL MPV 10.0 (7.4-10.4) fL Immature Gran % (Auto) 0.5 % Neut % (Auto) 77.3 % Lymph % (Auto) 17.4 % [place] % (Auto) 4.4 % Eos % (Auto) 0.2 % Baso % (Auto) 0.2 % Neut # (Auto) 6.44 (1.4-6.5) K/uL Lymph # (Auto) 1.45 (1.2-3.4) K/uL [place] # (Auto) 0.37 (0.11-0.59) K/uL Eos # (Auto) 0.02 (0-0.5) K/uL Baso # (Auto) 0.02 (0-0.2) K/uL Immature Gran # (Auto) 0.04 H (0.00-0.02) K/uL Absolute Nucleated RBC Nucleated RBC % (auto) Neutrophils % (Manual) Band Neutrophils % Lymphocytes % (Manual) Prolymphocyte % Reactive Lymphs % (Man) Monocytes % (Manual) Eosinophils % (Manual) Basophils % (Manual) Metamyelocytes % (Man) Myelocytes % (Man) Promyelocytes % (Man) Blast Cells % (Manual) Plasma Cell % (Manual) Other Cells % Nucleated RBC % Neutrophils # (Manual) Band Neutrophils # Total Absolute Neuts Lymphocytes # (Manual) Prolymphocyte # Reactive Lymphs # Total Abs Lymphocytes Monocytes # (Manual) Eosinophils # (Manual) Basophils # (Manual) Metamyelocytes # (Man) Myelocytes # (Manual) Promyelocytes # (Man) Blast Cells # (Man) Plasma Cell # (Manual) Other Cells # Nucleated RBCs # (Man) Hypersegmented Neuts Hyposegmented Neuts Hypogranular Neuts Large Granular Lymphs # Lrg Granular Lymphs Hairy Cells Smudge Cells Toxic Granulation Toxic Vacuolation Dohle Bodies Ryan Rods Platelet Estimate Hypogranular Platelets Clumped Platelets Giant Platelets Platelet Satelliting RBC Morphology Polychromasia Hypochromasia Poikilocytosis Basophilic Stippling Anisocytosis Microcytosis Macrocytosis Spherocytes Pappenheimer Bodies Sickle Cells Target Cells Tear Drop Cells Ovalocytes Stomatocytes Castro-Folcroft Bodies Echinocytes Acanthocytes (Spur) Rouleaux RBC Agglutinates Schistocytes RBC Morph Comment Sezary Cell Sodium (136-145) mmol/L Potassium (3.5-5.1) mmol/L Chloride (98-107) mmol/L Carbon Dioxide (21-32) mmol/L Anion Gap (3-11) BUN (7-18) mg/dl Creatinine (0.6-1.4) mg/dl Est Cr Clr Drug Dosing ml/min Est GFR ( Amer) ml/min Est GFR (Non-Af Amer) ml/min BUN/Creatinine Ratio (10-20) Glucose (70-99) mg/dl POC Glucose 149 H (70-99) mg/dl Lactate (0.4-2.0) mmol/L Calcium (8.5-10.1) mg/dl Phosphorus (2.5-4.9) mg/dl Magnesium (1.8-2.4) mg/dl Total Bilirubin (0.2-1) mg/dl Direct Bilirubin (0-0.2) mg/dl AST (15-37) U/L ALT (12-78) Alkaline Phosphatase (45-117) U/L Total Protein (6.4-8.2) gm/dl Albumin (3.4-5.0) gm/dl Globulin (2.5-4.0) gm/dl Albumin/Globulin Ratio (0.9-2) Triglycerides (0-150) mg/dl Lipase (73-393) U/L Beta-Hydroxybutyric Acd (0.2-2.81) mg/dl Procalcitonin (0-0.5) ng/ml Random Cortisol mcg/dl Nasal Screen MRSA (PCR) Negative (Negative) 10/08/21 10/08/21 10/08/21 Range/Units 23:47 22:44 22:31 WBC (4.8-10.8) K/uL RBC (4.7-6.1) M/uL Hgb (14.0-18.0) g/dL Hct (42-52) % MCV (80-100) fL MCH (25-34) pg MCHC (32-36) g/dL RDW Std Deviation (36.4-46.3) fL RDW Coeff of Vickie (11.5-14.5) % Plt Count (130-400) K/uL MPV (7.4-10.4) fL Immature Gran % (Auto) % Neut % (Auto) % Lymph % (Auto) % Archuleta % (Auto) % Eos % (Auto) % Baso % (Auto) % Neut # (Auto) (1.4-6.5) K/uL Lymph # (Auto) (1.2-3.4) K/uL Archuleta # (Auto) (0.11-0.59) K/uL Eos # (Auto) (0-0.5) K/uL Baso # (Auto) (0-0.2) K/uL Immature Gran # (Auto) (0.00-0.02) K/uL Absolute Nucleated RBC Nucleated RBC % (auto) Neutrophils % (Manual) Band Neutrophils % Lymphocytes % (Manual) Prolymphocyte % Reactive Lymphs % (Man) Monocytes % (Manual) Eosinophils % (Manual) Basophils % (Manual) Metamyelocytes % (Man) Myelocytes % (Man) Promyelocytes % (Man) Blast Cells % (Manual) Plasma Cell % (Manual) Other Cells % Nucleated RBC % Neutrophils # (Manual) Band Neutrophils # Total Absolute Neuts Lymphocytes # (Manual) Prolymphocyte # Reactive Lymphs # Total Abs Lymphocytes Monocytes # (Manual) Eosinophils # (Manual) Basophils # (Manual) Metamyelocytes # (Man) Myelocytes # (Manual) Promyelocytes # (Man) Blast Cells # (Man) Plasma Cell # (Manual) Other Cells # Nucleated RBCs # (Man) Hypersegmented Neuts Hyposegmented Neuts Hypogranular Neuts Large Granular Lymphs # Lrg Granular Lymphs Hairy Cells Smudge Cells Toxic Granulation Toxic Vacuolation Dohle Bodies Ryan Rods Platelet Estimate Hypogranular Platelets Clumped Platelets Giant Platelets Platelet Satelliting RBC Morphology Polychromasia Hypochromasia Poikilocytosis Basophilic Stippling Anisocytosis Microcytosis Macrocytosis Spherocytes Pappenheimer Bodies Sickle Cells Target Cells Tear Drop Cells Ovalocytes Stomatocytes Castro-Folcroft Bodies Echinocytes Acanthocytes (Spur) Rouleaux RBC Agglutinates Schistocytes RBC Morph Comment Sezary Cell Sodium 138 (136-145) mmol/L Potassium 4.9 (3.5-5.1) mmol/L Chloride 106 (98-107) mmol/L Carbon Dioxide 22 (21-32) mmol/L Anion Gap 10.0 (3-11) BUN 24 H (7-18) mg/dl Creatinine 4.07 H D (0.6-1.4) mg/dl Est Cr Clr Drug Dosing 32.0 ml/min Est GFR ( Amer) 19.6 ml/min Est GFR (Non-Af Amer) 16.9 ml/min BUN/Creatinine Ratio 6.0 L (10-20) Glucose 112 H (70-99) mg/dl POC Glucose 89 139 H (70-99) mg/dl Lactate (0.4-2.0) mmol/L Calcium 6.3 L (8.5-10.1) mg/dl Phosphorus (2.5-4.9) mg/dl Magnesium (1.8-2.4) mg/dl Total Bilirubin (0.2-1) mg/dl Direct Bilirubin (0-0.2) mg/dl AST (15-37) U/L ALT (12-78) Alkaline Phosphatase (45-117) U/L Total Protein (6.4-8.2) gm/dl Albumin (3.4-5.0) gm/dl Globulin (2.5-4.0) gm/dl Albumin/Globulin Ratio (0.9-2) Triglycerides (0-150) mg/dl Lipase (73-393) U/L Beta-Hydroxybutyric Acd (0.2-2.81) mg/dl Procalcitonin (0-0.5) ng/ml Random Cortisol mcg/dl Nasal Screen MRSA (PCR) (Negative) 10/08/21 10/08/21 10/08/21 Range/Units 21:27 20:26 19:42 WBC (4.8-10.8) K/uL RBC (4.7-6.1) M/uL Hgb (14.0-18.0) g/dL Hct (42-52) % MCV (80-100) fL MCH (25-34) pg MCHC (32-36) g/dL RDW Std Deviation (36.4-46.3) fL RDW Coeff of Vickie (11.5-14.5) % Plt Count (130-400) K/uL MPV (7.4-10.4) fL Immature Gran % (Auto) % Neut % (Auto) % Lymph % (Auto) % [place] % (Auto) % Eos % (Auto) % Baso % (Auto) % Neut # (Auto) (1.4-6.5) K/uL Lymph # (Auto) (1.2-3.4) K/uL [place] # (Auto) (0.11-0.59) K/uL Eos # (Auto) (0-0.5) K/uL Baso # (Auto) (0-0.2) K/uL Immature Gran # (Auto) (0.00-0.02) K/uL Absolute Nucleated RBC Nucleated RBC % (auto) Neutrophils % (Manual) Band Neutrophils % Lymphocytes % (Manual) Prolymphocyte % Reactive Lymphs % (Man) Monocytes % (Manual) Eosinophils % (Manual) Basophils % (Manual) Metamyelocytes % (Man) Myelocytes % (Man) Promyelocytes % (Man) Blast Cells % (Manual) Plasma Cell % (Manual) Other Cells % Nucleated RBC % Neutrophils # (Manual) Band Neutrophils # Total Absolute Neuts Lymphocytes # (Manual) Prolymphocyte # Reactive Lymphs # Total Abs Lymphocytes Monocytes # (Manual) Eosinophils # (Manual) Basophils # (Manual) Metamyelocytes # (Man) Myelocytes # (Manual) Promyelocytes # (Man) Blast Cells # (Man) Plasma Cell # (Manual) Other Cells # Nucleated RBCs # (Man) Hypersegmented Neuts Hyposegmented Neuts Hypogranular Neuts Large Granular Lymphs # Lrg Granular Lymphs Hairy Cells Smudge Cells Toxic Granulation Toxic Vacuolation Dohle Bodies Ryan Rods Platelet Estimate Hypogranular Platelets Clumped Platelets Giant Platelets Platelet Satelliting RBC Morphology Polychromasia Hypochromasia Poikilocytosis Basophilic Stippling Anisocytosis Microcytosis Macrocytosis Spherocytes Pappenheimer Bodies Sickle Cells Target Cells Tear Drop Cells Ovalocytes Stomatocytes Castro-Folcroft Bodies Echinocytes Acanthocytes (Spur) Rouleaux RBC Agglutinates Schistocytes RBC Morph Comment Sezary Cell Sodium (136-145) mmol/L Potassium (3.5-5.1) mmol/L Chloride (98-107) mmol/L Carbon Dioxide (21-32) mmol/L Anion Gap (3-11) BUN (7-18) mg/dl Creatinine (0.6-1.4) mg/dl Est Cr Clr Drug Dosing ml/min Est GFR ( Amer) ml/min Est GFR (Non-Af Amer) ml/min BUN/Creatinine Ratio (10-20) Glucose (70-99) mg/dl POC Glucose 139 H 159 H 145 H (70-99) mg/dl Lactate (0.4-2.0) mmol/L Calcium (8.5-10.1) mg/dl Phosphorus (2.5-4.9) mg/dl Magnesium (1.8-2.4) mg/dl Total Bilirubin (0.2-1) mg/dl Direct Bilirubin (0-0.2) mg/dl AST (15-37) U/L ALT (12-78) Alkaline Phosphatase (45-117) U/L Total Protein (6.4-8.2) gm/dl Albumin (3.4-5.0) gm/dl Globulin (2.5-4.0) gm/dl Albumin/Globulin Ratio (0.9-2) Triglycerides (0-150) mg/dl Lipase (73-393) U/L Beta-Hydroxybutyric Acd (0.2-2.81) mg/dl Procalcitonin (0-0.5) ng/ml Random Cortisol mcg/dl Nasal Screen MRSA (PCR) (Negative) 10/08/21 10/08/21 10/08/21 Range/Units 18:22 17:35 17:20 WBC (4.8-10.8) K/uL RBC (4.7-6.1) M/uL Hgb (14.0-18.0) g/dL Hct (42-52) % MCV (80-100) fL MCH (25-34) pg MCHC (32-36) g/dL RDW Std Deviation (36.4-46.3) fL RDW Coeff of Vickie (11.5-14.5) % Plt Count (130-400) K/uL MPV (7.4-10.4) fL Immature Gran % (Auto) % Neut % (Auto) % Lymph % (Auto) % [place] % (Auto) % Eos % (Auto) % Baso % (Auto) % Neut # (Auto) (1.4-6.5) K/uL Lymph # (Auto) (1.2-3.4) K/uL [place] # (Auto) (0.11-0.59) K/uL Eos # (Auto) (0-0.5) K/uL Baso # (Auto) (0-0.2) K/uL Immature Gran # (Auto) (0.00-0.02) K/uL Absolute Nucleated RBC Nucleated RBC % (auto) Neutrophils % (Manual) Band Neutrophils % Lymphocytes % (Manual) Prolymphocyte % Reactive Lymphs % (Man) Monocytes % (Manual) Eosinophils % (Manual) Basophils % (Manual) Metamyelocytes % (Man) Myelocytes % (Man) Promyelocytes % (Man) Blast Cells % (Manual) Plasma Cell % (Manual) Other Cells % Nucleated RBC % Neutrophils # (Manual) Band Neutrophils # Total Absolute Neuts Lymphocytes # (Manual) Prolymphocyte # Reactive Lymphs # Total Abs Lymphocytes Monocytes # (Manual) Eosinophils # (Manual) Basophils # (Manual) Metamyelocytes # (Man) Myelocytes # (Manual) Promyelocytes # (Man) Blast Cells # (Man) Plasma Cell # (Manual) Other Cells # Nucleated RBCs # (Man) Hypersegmented Neuts Hyposegmented Neuts Hypogranular Neuts Large Granular Lymphs # Lrg Granular Lymphs Hairy Cells Smudge Cells Toxic Granulation Toxic Vacuolation Dohle Bodies Ryan Rods Platelet Estimate Hypogranular Platelets Clumped Platelets Giant Platelets Platelet Satelliting RBC Morphology Polychromasia Hypochromasia Poikilocytosis Basophilic Stippling Anisocytosis Microcytosis Macrocytosis Spherocytes Pappenheimer Bodies Sickle Cells Target Cells Tear Drop Cells Ovalocytes Stomatocytes Castro-Folcroft Bodies Echinocytes Acanthocytes (Spur) Rouleaux RBC Agglutinates Schistocytes RBC Morph Comment Sezary Cell Sodium 134 L (136-145) mmol/L Potassium 5.0 (3.5-5.1) mmol/L Chloride 108 H (98-107) mmol/L Carbon Dioxide 20 L (21-32) mmol/L Anion Gap 6.0 (3-11) BUN 22 H (7-18) mg/dl Creatinine 2.92 H D (0.6-1.4) mg/dl Est Cr Clr Drug Dosing 44.6 ml/min Est GFR ( Amer) 29.3 ml/min Est GFR (Non-Af Amer) 25.3 ml/min BUN/Creatinine Ratio 7.5 L (10-20) Glucose 93 (70-99) mg/dl POC Glucose 91 89 (70-99) mg/dl Lactate (0.4-2.0) mmol/L Calcium 6.8 L (8.5-10.1) mg/dl Phosphorus (2.5-4.9) mg/dl Magnesium (1.8-2.4) mg/dl Total Bilirubin 0.4 (0.2-1) mg/dl Direct Bilirubin (0-0.2) mg/dl AST 35 (15-37) U/L ALT 28 (12-78) Alkaline Phosphatase 62 (45-117) U/L Total Protein 6.7 (6.4-8.2) gm/dl Albumin 2.5 L (3.4-5.0) gm/dl Globulin 4.2 H (2.5-4.0) gm/dl Albumin/Globulin Ratio 0.6 L (0.9-2) Triglycerides 1274 H (0-150) mg/dl Lipase (73-393) U/L Beta-Hydroxybutyric Acd (0.2-2.81) mg/dl Procalcitonin (0-0.5) ng/ml Random Cortisol mcg/dl Nasal Screen MRSA (PCR) (Negative) 10/08/21 10/08/21 10/08/21 Range/Units 16:28 15:26 15:14 WBC (4.8-10.8) K/uL RBC (4.7-6.1) M/uL Hgb (14.0-18.0) g/dL Hct (42-52) % MCV (80-100) fL MCH (25-34) pg MCHC (32-36) g/dL RDW Std Deviation (36.4-46.3) fL RDW Coeff of Vickie (11.5-14.5) % Plt Count (130-400) K/uL MPV (7.4-10.4) fL Immature Gran % (Auto) % Neut % (Auto) % Lymph % (Auto) % [place] % (Auto) % Eos % (Auto) % Baso % (Auto) % Neut # (Auto) (1.4-6.5) K/uL Lymph # (Auto) (1.2-3.4) K/uL [place] # (Auto) (0.11-0.59) K/uL Eos # (Auto) (0-0.5) K/uL Baso # (Auto) (0-0.2) K/uL Immature Gran # (Auto) (0.00-0.02) K/uL Absolute Nucleated RBC Nucleated RBC % (auto) Neutrophils % (Manual) Band Neutrophils % Lymphocytes % (Manual) Prolymphocyte % Reactive Lymphs % (Man) Monocytes % (Manual) Eosinophils % (Manual) Basophils % (Manual) Metamyelocytes % (Man) Myelocytes % (Man) Promyelocytes % (Man) Blast Cells % (Manual) Plasma Cell % (Manual) Other Cells % Nucleated RBC % Neutrophils # (Manual) Band Neutrophils # Total Absolute Neuts Lymphocytes # (Manual) Prolymphocyte # Reactive Lymphs # Total Abs Lymphocytes Monocytes # (Manual) Eosinophils # (Manual) Basophils # (Manual) Metamyelocytes # (Man) Myelocytes # (Manual) Promyelocytes # (Man) Blast Cells # (Man) Plasma Cell # (Manual) Other Cells # Nucleated RBCs # (Man) Hypersegmented Neuts Hyposegmented Neuts Hypogranular Neuts Large Granular Lymphs # Lrg Granular Lymphs Hairy Cells Smudge Cells Toxic Granulation Toxic Vacuolation Dohle Bodies Ryan Rods Platelet Estimate Hypogranular Platelets Clumped Platelets Giant Platelets Platelet Satelliting RBC Morphology Polychromasia Hypochromasia Poikilocytosis Basophilic Stippling Anisocytosis Microcytosis Macrocytosis Spherocytes Pappenheimer Bodies Sickle Cells Target Cells Tear Drop Cells Ovalocytes Stomatocytes Castro-Folcroft Bodies Echinocytes Acanthocytes (Spur) Rouleaux RBC Agglutinates Schistocytes RBC Morph Comment Sezary Cell Sodium (136-145) mmol/L Potassium (3.5-5.1) mmol/L Chloride (98-107) mmol/L Carbon Dioxide (21-32) mmol/L Anion Gap (3-11) BUN (7-18) mg/dl Creatinine (0.6-1.4) mg/dl Est Cr Clr Drug Dosing ml/min Est GFR ( Amer) ml/min Est GFR (Non-Af Amer) ml/min BUN/Creatinine Ratio (10-20) Glucose (70-99) mg/dl POC Glucose 91 108 H (70-99) mg/dl Lactate 1.4 (0.4-2.0) mmol/L Calcium (8.5-10.1) mg/dl Phosphorus (2.5-4.9) mg/dl Magnesium (1.8-2.4) mg/dl Total Bilirubin (0.2-1) mg/dl Direct Bilirubin (0-0.2) mg/dl AST (15-37) U/L ALT (12-78) Alkaline Phosphatase (45-117) U/L Total Protein (6.4-8.2) gm/dl Albumin (3.4-5.0) gm/dl Globulin (2.5-4.0) gm/dl Albumin/Globulin Ratio (0.9-2) Triglycerides (0-150) mg/dl Lipase (73-393) U/L Beta-Hydroxybutyric Acd (0.2-2.81) mg/dl Procalcitonin (0-0.5) ng/ml Random Cortisol mcg/dl Nasal Screen MRSA (PCR) (Negative) 10/08/21 10/08/21 10/08/21 Range/Units 14:16 13:18 12:09 WBC (4.8-10.8) K/uL RBC (4.7-6.1) M/uL Hgb (14.0-18.0) g/dL Hct (42-52) % MCV (80-100) fL MCH (25-34) pg MCHC (32-36) g/dL RDW Std Deviation (36.4-46.3) fL RDW Coeff of Vickie (11.5-14.5) % Plt Count (130-400) K/uL MPV (7.4-10.4) fL Immature Gran % (Auto) % Neut % (Auto) % Lymph % (Auto) % [place] % (Auto) % Eos % (Auto) % Baso % (Auto) % Neut # (Auto) (1.4-6.5) K/uL Lymph # (Auto) (1.2-3.4) K/uL [place] # (Auto) (0.11-0.59) K/uL Eos # (Auto) (0-0.5) K/uL Baso # (Auto) (0-0.2) K/uL Immature Gran # (Auto) (0.00-0.02) K/uL Absolute Nucleated RBC Nucleated RBC % (auto) Neutrophils % (Manual) Band Neutrophils % Lymphocytes % (Manual) Prolymphocyte % Reactive Lymphs % (Man) Monocytes % (Manual) Eosinophils % (Manual) Basophils % (Manual) Metamyelocytes % (Man) Myelocytes % (Man) Promyelocytes % (Man) Blast Cells % (Manual) Plasma Cell % (Manual) Other Cells % Nucleated RBC % Neutrophils # (Manual) Band Neutrophils # Total Absolute Neuts Lymphocytes # (Manual) Prolymphocyte # Reactive Lymphs # Total Abs Lymphocytes Monocytes # (Manual) Eosinophils # (Manual) Basophils # (Manual) Metamyelocytes # (Man) Myelocytes # (Manual) Promyelocytes # (Man) Blast Cells # (Man) Plasma Cell # (Manual) Other Cells # Nucleated RBCs # (Man) Hypersegmented Neuts Hyposegmented Neuts Hypogranular Neuts Large Granular Lymphs # Lrg Granular Lymphs Hairy Cells Smudge Cells Toxic Granulation Toxic Vacuolation Dohle Bodies Ryan Rods Platelet Estimate Hypogranular Platelets Clumped Platelets Giant Platelets Platelet Satelliting RBC Morphology Polychromasia Hypochromasia Poikilocytosis Basophilic Stippling Anisocytosis Microcytosis Macrocytosis Spherocytes Pappenheimer Bodies Sickle Cells Target Cells Tear Drop Cells Ovalocytes Stomatocytes Castro-Folcroft Bodies Echinocytes Acanthocytes (Spur) Rouleaux RBC Agglutinates Schistocytes RBC Morph Comment Sezary Cell Sodium (136-145) mmol/L Potassium (3.5-5.1) mmol/L Chloride (98-107) mmol/L Carbon Dioxide (21-32) mmol/L Anion Gap (3-11) BUN (7-18) mg/dl Creatinine (0.6-1.4) mg/dl Est Cr Clr Drug Dosing ml/min Est GFR ( Amer) ml/min Est GFR (Non-Af Amer) ml/min BUN/Creatinine Ratio (10-20) Glucose (70-99) mg/dl POC Glucose 135 H 154 H 173 H (70-99) mg/dl Lactate (0.4-2.0) mmol/L Calcium (8.5-10.1) mg/dl Phosphorus (2.5-4.9) mg/dl Magnesium (1.8-2.4) mg/dl Total Bilirubin (0.2-1) mg/dl Direct Bilirubin (0-0.2) mg/dl AST (15-37) U/L ALT (12-78) Alkaline Phosphatase (45-117) U/L Total Protein (6.4-8.2) gm/dl Albumin (3.4-5.0) gm/dl Globulin (2.5-4.0) gm/dl Albumin/Globulin Ratio (0.9-2) Triglycerides (0-150) mg/dl Lipase (73-393) U/L Beta-Hydroxybutyric Acd (0.2-2.81) mg/dl Procalcitonin (0-0.5) ng/ml Random Cortisol mcg/dl Nasal Screen MRSA (PCR) (Negative) 10/08/21 10/08/21 Range/Units 12:04 11:06 WBC (4.8-10.8) K/uL RBC (4.7-6.1) M/uL Hgb (14.0-18.0) g/dL Hct (42-52) % MCV (80-100) fL MCH (25-34) pg MCHC (32-36) g/dL RDW Std Deviation (36.4-46.3) fL RDW Coeff of Vickie (11.5-14.5) % Plt Count (130-400) K/uL MPV (7.4-10.4) fL Immature Gran % (Auto) % Neut % (Auto) % Lymph % (Auto) % [place] % (Auto) % Eos % (Auto) % Baso % (Auto) % Neut # (Auto) (1.4-6.5) K/uL Lymph # (Auto) (1.2-3.4) K/uL [place] # (Auto) (0.11-0.59) K/uL Eos # (Auto) (0-0.5) K/uL Baso # (Auto) (0-0.2) K/uL Immature Gran # (Auto) (0.00-0.02) K/uL Absolute Nucleated RBC Nucleated RBC % (auto) Neutrophils % (Manual) Band Neutrophils % Lymphocytes % (Manual) Prolymphocyte % Reactive Lymphs % (Man) Monocytes % (Manual) Eosinophils % (Manual) Basophils % (Manual) Metamyelocytes % (Man) Myelocytes % (Man) Promyelocytes % (Man) Blast Cells % (Manual) Plasma Cell % (Manual) Other Cells % Nucleated RBC % Neutrophils # (Manual) Band Neutrophils # Total Absolute Neuts Lymphocytes # (Manual) Prolymphocyte # Reactive Lymphs # Total Abs Lymphocytes Monocytes # (Manual) Eosinophils # (Manual) Basophils # (Manual) Metamyelocytes # (Man) Myelocytes # (Manual) Promyelocytes # (Man) Blast Cells # (Man) Plasma Cell # (Manual) Other Cells # Nucleated RBCs # (Man) Hypersegmented Neuts Hyposegmented Neuts Hypogranular Neuts Large Granular Lymphs # Lrg Granular Lymphs Hairy Cells Smudge Cells Toxic Granulation Toxic Vacuolation Dohle Bodies Ryan Rods Platelet Estimate Hypogranular Platelets Clumped Platelets Giant Platelets Platelet Satelliting RBC Morphology Polychromasia Hypochromasia Poikilocytosis Basophilic Stippling Anisocytosis Microcytosis Macrocytosis Spherocytes Pappenheimer Bodies Sickle Cells Target Cells Tear Drop Cells Ovalocytes Stomatocytes Castro-Folcroft Bodies Echinocytes Acanthocytes (Spur) Rouleaux RBC Agglutinates Schistocytes RBC Morph Comment Sezary Cell Sodium 132 L (136-145) mmol/L Potassium 4.7 (3.5-5.1) mmol/L Chloride 105 (98-107) mmol/L Carbon Dioxide 18 L (21-32) mmol/L Anion Gap 9.0 (3-11) BUN 20 H (7-18) mg/dl Creatinine 2.47 H D (0.6-1.4) mg/dl Est Cr Clr Drug Dosing 52.7 ml/min Est GFR ( Amer) 35.9 ml/min Est GFR (Non-Af Amer) 31.0 ml/min BUN/Creatinine Ratio 8.1 L (10-20) Glucose 187 H (70-99) mg/dl POC Glucose 171 H (70-99) mg/dl Lactate (0.4-2.0) mmol/L Calcium 6.4 L (8.5-10.1) mg/dl Phosphorus (2.5-4.9) mg/dl Magnesium (1.8-2.4) mg/dl Total Bilirubin (0.2-1) mg/dl Direct Bilirubin (0-0.2) mg/dl AST (15-37) U/L ALT (12-78) Alkaline Phosphatase (45-117) U/L Total Protein (6.4-8.2) gm/dl Albumin (3.4-5.0) gm/dl Globulin (2.5-4.0) gm/dl Albumin/Globulin Ratio (0.9-2) Triglycerides 1384 H (0-150) mg/dl Lipase (73-393) U/L Beta-Hydroxybutyric Acd (0.2-2.81) mg/dl Procalcitonin (0-0.5) ng/ml Random Cortisol mcg/dl Nasal Screen MRSA (PCR) (Negative)
--- NOTE | 2021-10-09 10:55 | Nephrology Consultation ---
Date of Consultation October 09, 2021 Assessment & Plan (1) JE (acute kidney injury): BP and volume status acceptable. 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 Clinically consistent with prerenal physiology and superimposed ATN. Abdominal compartment syndrome unlikely. Serial abdominal exams are essential. May consider bladder pressure checks if no improvement in exam and urine output with abdominal decompression and supportive care. Avoid aggressive volume replacement. PRN boluses for hypotension. Encourage supplemental parental nutrition as early as possible. Prognosis guarded. Document strict I/O. Beasley to gravity. Monitor metabolic profile twice daily. (2) Ileus: NGT to suction. (3) Hypotension: Phenylephrine gtt to maintain MAP >65. PRN boluses of balanced IVF. (4) Hypertriglyceridemia: If triglycerides remain >1000 with current management and/or no clinical improvement with supportive care, consider transfer to a tertiary facility able to provide aphersis. History of Present Illness Reason for Consultation: JE Requesting Physician: Néstor Villareal MD Attending Physician: Néstor Villareal MD History of Present Illness Mr. Tyrell Alvarez is a 41-year-old male with obesity, hypertriglyceridemia, hypertension, and diabetes mellitus II. He presented to the ER on 09/28 with abdominal pain. Symptoms progressed unresolved and he returned to [facility] on 10/07 with evidence of severe pancreatitis and notable hypertriglyceridemia and hyperglycemia. CT did not demonstrate evidence of necrosis or pseudocyst. Creatinine was normal at baseline <1 mg/dL. Aggressive IVF replacement has been provided. Yesterday, Tyrell was transferred to the ICU with hypotension requiring vasopressor support. His urine output has dropped dramatically. He became oliguric overnight with ~90 ml in the past shift. Abdomen is distended with evidence of ileus. NGT has been placed to suction. Beasley intact. A renal artery duplex was obtained yesterday demonstrating patent renal veins. Arteries were not able to be visualized. RI within normal limits. UA/micro on 10/07 demonstrated 1+ protein and 3+ glucose. NaCl 250 mEq/L + D10 infusing with insulin. Phenylephrine gtt for BP support. Abdominal discomfort persists. No history of alcohol use. Lisinopril/HCTZ, and metformin have been held. The patient was seen and evaluated in the ICU this AM with Dr. Woodruff at the bedside. Plan of care was discussed in detail. Allergies Allergy/AdvReac Type Severity Reaction Status Date / Time No Known Allergies Allergy Verified 09/28/21 00:51 Home Medications Medication Instructions Recorded Confirmed Type atorvastatin 10 mg tablet 10 mg PO HS 09/28/21 10/07/21 History cholestyramine-aspartame 4 gram 4 g PO DAILY PRN 30 Days #30 ea 09/28/21 10/07/21 Rx oral powder for susp in a packet (Cholestyramine Light) dextroamphetamine-amphetamine ER 30 mg PO DAILY 09/28/21 10/07/21 History 30 mg 24hr capsule,extend release hydrochlorothiazide 12.5 mg capsule 12.5 mg PO DAILY 09/28/21 10/07/21 History lisinopril 20 mg tablet 20 mg PO DAILY 09/28/21 10/07/21 History metformin 500 mg tablet 1,000 mg PO BID 09/28/21 10/07/21 History metoprolol succinate 100 mg 100 mg PO DAILY 09/28/21 10/07/21 History tablet,extended release 24 hr testosterone cypionate 200 mg/mL 200 mg IM .[id number] 09/28/21 10/07/21 History intramuscular oil venlafaxine 75 mg tablet 75 mg PO BID 09/28/21 10/07/21 History fenofibrate micronized 43 mg 43 mg PO DAILY 10/07/21 10/07/21 History capsule Patient History Medical History Diabetes High blood pressure Surgical History History of orthopedic surgery Social History Smoking Status: Never smoker Second Hand Exposure: No; Hx Alcohol Use: No Hx Substance Use: No Preferred Language: Bangladeshi Communication Ability: Effective Rn Clinical Coordinator Required: No Current Living Situation: Alone Feels Safe at Home: Yes Assistive Devices: None Physical Exam Constitutional: well developed and + obese; + uncomfortable and not edematous Eyes: + anicteric sclerae; no corneal abnormality ENMT: Mouth: no oral mucosal abnormality and oral mucous membranes not dry Neck: normal visual inspection and trachea midline Respiratory: normal respiratory effort Auscultation: lungs clear to auscultation bilaterally and + diminished lung sounds Cardiovascular: Rate/Rhythm: + tachycardic Heart Sounds: normal S1 and normal S2 Extremities: + pedal edema; no calf tenderness Gastrointestinal (Abdomen): Inspection/Auscultation: + abdomen distended; + abnormal bowel sounds Percussion/Palpation: + abdomen tender and + tympanic to percussion; no guarding and no ascites Musculoskeletal: Extremities: no cyanosis and no clubbing Skin: normal turgor; no lesions Neurologic: Motor/Sensory: no tremor and no asterixis Psychiatric: Orientation: alert and oriented x 3 Results & Data ([facility]) Vital Signs (Past 12 Hours) Vital Signs Temp Pulse Pulse Resp BP BP BP 10/09/21 07:00 123 H 21 10/09/21 06:45 122 H 20 10/09/21 06:30 123 H 19 10/09/21 06:15 124 H 31 H 10/09/21 06:00 124 H 24 97/69 L 10/09/21 05:45 124 H 34 H 10/09/21 05:31 122 H 29 H 95/62 L 10/09/21 05:15 122 H 32 H 10/09/21 05:00 121 H 34 H 10/09/21 04:45 123 H 25 H 10/09/21 04:30 123 H 33 H 10/09/21 04:15 123 H 27 H 101/60 10/09/21 04:00 126 H 25 H 10/09/21 03:45 127 H 26 H 10/09/21 03:30 127 H 30 H 106/81 10/09/21 03:15 127 H 34 H 111/73 10/09/21 03:00 127 H 33 H 103/79 10/09/21 02:45 127 H 20 109/80 10/09/21 02:30 127 H 20 98/78 L 10/09/21 02:15 128 H 19 100/73 10/09/21 02:00 128 H 16 115/63 10/09/21 01:45 130 H 21 90/69 L 10/09/21 01:30 131 H 28 H 106/62 10/09/21 01:15 135 H 29 H 94/59 L 10/09/21 01:00 135 H 33 H 88/58 L 10/09/21 00:45 134 H 16 91/64 L 10/09/21 00:36 135 H 10/09/21 00:30 135 H 21 91/64 L 10/09/21 00:15 134 H 13 89/59 L 10/08/21 23:27 36.9 C 131 H 19 78/50 L 64/46 L Pulse Ox 10/09/21 07:00 97 10/09/21 06:45 94 10/09/21 06:30 96 10/09/21 06:15 95 10/09/21 06:00 95 10/09/21 05:45 95 10/09/21 05:31 95 10/09/21 05:15 94 10/09/21 05:00 95 10/09/21 04:45 95 10/09/21 04:30 95 10/09/21 04:15 95 10/09/21 04:00 96 10/09/21 03:45 96 10/09/21 03:30 96 10/09/21 03:15 96 10/09/21 03:00 95 10/09/21 02:45 96 10/09/21 02:30 95 10/09/21 02:15 96 10/09/21 02:00 96 10/09/21 01:45 95 10/09/21 01:30 95 10/09/21 01:15 95 10/09/21 01:00 93 10/09/21 00:45 94 10/09/21 00:36 10/09/21 00:30 94 10/09/21 00:15 10/08/21 23:27 94 Laboratory Results Laboratory Results - last 24 hr 10/08/21 10/08/21 10/08/21 11:06 12:04 12:09 WBC RBC Hgb Hct MCV MCH MCHC RDW Std Deviation RDW Coeff of Vickie Plt Count MPV Immature Gran % (Auto) Neut % (Auto) Lymph % (Auto) [place] % (Auto) Eos % (Auto) Baso % (Auto) Neut # (Auto) Lymph # (Auto) [place] # (Auto) Eos # (Auto) Baso # (Auto) Immature Gran # (Auto) Absolute Nucleated RBC Nucleated RBC % (auto) Neutrophils % (Manual) Band Neutrophils % Lymphocytes % (Manual) Prolymphocyte % Reactive Lymphs % (Man) Monocytes % (Manual) Eosinophils % (Manual) Basophils % (Manual) Metamyelocytes % (Man) Myelocytes % (Man) Promyelocytes % (Man) Blast Cells % (Manual) Plasma Cell % (Manual) Other Cells % Nucleated RBC % Neutrophils # (Manual) Band Neutrophils # Total Absolute Neuts Lymphocytes # (Manual) Prolymphocyte # Reactive Lymphs # Total Abs Lymphocytes Monocytes # (Manual) Eosinophils # (Manual) Basophils # (Manual) Metamyelocytes # (Man) Myelocytes # (Manual) Promyelocytes # (Man) Blast Cells # (Man) Plasma Cell # (Manual) Other Cells # Nucleated RBCs # (Man) Hypersegmented Neuts Hyposegmented Neuts Hypogranular Neuts Large Granular Lymphs # Lrg Granular Lymphs Hairy Cells Smudge Cells Toxic Granulation Toxic Vacuolation Dohle Bodies Ryan Rods Platelet Estimate Hypogranular Platelets Clumped Platelets Giant Platelets Platelet Satelliting RBC Morphology Polychromasia Hypochromasia Poikilocytosis Basophilic Stippling Anisocytosis Microcytosis Macrocytosis Spherocytes Pappenheimer Bodies Sickle Cells Target Cells Tear Drop Cells Ovalocytes Stomatocytes Castro-Collyer Bodies Echinocytes Acanthocytes (Spur) Rouleaux RBC Agglutinates Schistocytes RBC Morph Comment Sezary Cell Sodium 132 L Potassium 4.7 Chloride 105 Carbon Dioxide 18 L Anion Gap 9.0 BUN 20 H Creatinine 2.47 H D Est Cr Clr Drug Dosing 52.7 Est GFR ( Amer) 35.9 Est GFR (Non-Af Amer) 31.0 BUN/Creatinine Ratio 8.1 L Glucose 187 H POC Glucose 171 H 173 H Lactate Calcium 6.4 L Phosphorus Magnesium Total Bilirubin Direct Bilirubin AST ALT Alkaline Phosphatase Total Protein Albumin Globulin Albumin/Globulin Ratio Triglycerides 1384 H Lipase Beta-Hydroxybutyric Acd Procalcitonin Random Cortisol Nasal Screen MRSA (PCR) 10/08/21 10/08/21 10/08/21 13:18 14:16 15:14 WBC RBC Hgb Hct MCV MCH MCHC RDW Std Deviation RDW Coeff of Vickie Plt Count MPV Immature Gran % (Auto) Neut % (Auto) Lymph % (Auto) [place] % (Auto) Eos % (Auto) Baso % (Auto) Neut # (Auto) Lymph # (Auto) [place] # (Auto) Eos # (Auto) Baso # (Auto) Immature Gran # (Auto) Absolute Nucleated RBC Nucleated RBC % (auto) Neutrophils % (Manual) Band Neutrophils % Lymphocytes % (Manual) Prolymphocyte % Reactive Lymphs % (Man) Monocytes % (Manual) Eosinophils % (Manual) Basophils % (Manual) Metamyelocytes % (Man) Myelocytes % (Man) Promyelocytes % (Man) Blast Cells % (Manual) Plasma Cell % (Manual) Other Cells % Nucleated RBC % Neutrophils # (Manual) Band Neutrophils # Total Absolute Neuts Lymphocytes # (Manual) Prolymphocyte # Reactive Lymphs # Total Abs Lymphocytes Monocytes # (Manual) Eosinophils # (Manual) Basophils # (Manual) Metamyelocytes # (Man) Myelocytes # (Manual) Promyelocytes # (Man) Blast Cells # (Man) Plasma Cell # (Manual) Other Cells # Nucleated RBCs # (Man) Hypersegmented Neuts Hyposegmented Neuts Hypogranular Neuts Large Granular Lymphs # Lrg Granular Lymphs Hairy Cells Smudge Cells Toxic Granulation Toxic Vacuolation Dohle Bodies Ryan Rods Platelet Estimate Hypogranular Platelets Clumped Platelets Giant Platelets Platelet Satelliting RBC Morphology Polychromasia Hypochromasia Poikilocytosis Basophilic Stippling Anisocytosis Microcytosis Macrocytosis Spherocytes Pappenheimer Bodies Sickle Cells Target Cells Tear Drop Cells Ovalocytes Stomatocytes Castro-Collyer Bodies Echinocytes Acanthocytes (Spur) Rouleaux RBC Agglutinates Schistocytes RBC Morph Comment Sezary Cell Sodium Potassium Chloride Carbon Dioxide Anion Gap BUN Creatinine Est Cr Clr Drug Dosing Est GFR ( Amer) Est GFR (Non-Af Amer) BUN/Creatinine Ratio Glucose POC Glucose 154 H 135 H Lactate 1.4 Calcium Phosphorus Magnesium Total Bilirubin Direct Bilirubin AST ALT Alkaline Phosphatase Total Protein Albumin Globulin Albumin/Globulin Ratio Triglycerides Lipase Beta-Hydroxybutyric Acd Procalcitonin Random Cortisol Nasal Screen MRSA (PCR) 10/08/21 10/08/21 10/08/21 15:26 16:28 17:20 WBC RBC Hgb Hct MCV MCH MCHC RDW Std Deviation RDW Coeff of Vickie Plt Count MPV Immature Gran % (Auto) Neut % (Auto) Lymph % (Auto) [place] % (Auto) Eos % (Auto) Baso % (Auto) Neut # (Auto) Lymph # (Auto) [place] # (Auto) Eos # (Auto) Baso # (Auto) Immature Gran # (Auto) Absolute Nucleated RBC Nucleated RBC % (auto) Neutrophils % (Manual) Band Neutrophils % Lymphocytes % (Manual) Prolymphocyte % Reactive Lymphs % (Man) Monocytes % (Manual) Eosinophils % (Manual) Basophils % (Manual) Metamyelocytes % (Man) Myelocytes % (Man) Promyelocytes % (Man) Blast Cells % (Manual) Plasma Cell % (Manual) Other Cells % Nucleated RBC % Neutrophils # (Manual) Band Neutrophils # Total Absolute Neuts Lymphocytes # (Manual) Prolymphocyte # Reactive Lymphs # Total Abs Lymphocytes Monocytes # (Manual) Eosinophils # (Manual) Basophils # (Manual) Metamyelocytes # (Man) Myelocytes # (Manual) Promyelocytes # (Man) Blast Cells # (Man) Plasma Cell # (Manual) Other Cells # Nucleated RBCs # (Man) Hypersegmented Neuts Hyposegmented Neuts Hypogranular Neuts Large Granular Lymphs # Lrg Granular Lymphs Hairy Cells Smudge Cells Toxic Granulation Toxic Vacuolation Dohle Bodies Ryan Rods Platelet Estimate Hypogranular Platelets Clumped Platelets Giant Platelets Platelet Satelliting RBC Morphology Polychromasia Hypochromasia Poikilocytosis Basophilic Stippling Anisocytosis Microcytosis Macrocytosis Spherocytes Pappenheimer Bodies Sickle Cells Target Cells Tear Drop Cells Ovalocytes Stomatocytes Castro-Collyer Bodies Echinocytes Acanthocytes (Spur) Rouleaux RBC Agglutinates Schistocytes RBC Morph Comment Sezary Cell Sodium Potassium Chloride Carbon Dioxide Anion Gap BUN Creatinine Est Cr Clr Drug Dosing Est GFR ( Amer) Est GFR (Non-Af Amer) BUN/Creatinine Ratio Glucose POC Glucose 108 H 91 89 Lactate Calcium Phosphorus Magnesium Total Bilirubin Direct Bilirubin AST ALT Alkaline Phosphatase Total Protein Albumin Globulin Albumin/Globulin Ratio Triglycerides Lipase Beta-Hydroxybutyric Acd Procalcitonin Random Cortisol Nasal Screen MRSA (PCR) 10/08/21 10/08/21 10/08/21 17:35 18:22 19:42 WBC RBC Hgb Hct MCV MCH MCHC RDW Std Deviation RDW Coeff of Vickie Plt Count MPV Immature Gran % (Auto) Neut % (Auto) Lymph % (Auto) [place] % (Auto) Eos % (Auto) Baso % (Auto) Neut # (Auto) Lymph # (Auto) [place] # (Auto) Eos # (Auto) Baso # (Auto) Immature Gran # (Auto) Absolute Nucleated RBC Nucleated RBC % (auto) Neutrophils % (Manual) Band Neutrophils % Lymphocytes % (Manual) Prolymphocyte % Reactive Lymphs % (Man) Monocytes % (Manual) Eosinophils % (Manual) Basophils % (Manual) Metamyelocytes % (Man) Myelocytes % (Man) Promyelocytes % (Man) Blast Cells % (Manual) Plasma Cell % (Manual) Other Cells % Nucleated RBC % Neutrophils # (Manual) Band Neutrophils # Total Absolute Neuts Lymphocytes # (Manual) Prolymphocyte # Reactive Lymphs # Total Abs Lymphocytes Monocytes # (Manual) Eosinophils # (Manual) Basophils # (Manual) Metamyelocytes # (Man) Myelocytes # (Manual) Promyelocytes # (Man) Blast Cells # (Man) Plasma Cell # (Manual) Other Cells # Nucleated RBCs # (Man) Hypersegmented Neuts Hyposegmented Neuts Hypogranular Neuts Large Granular Lymphs # Lrg Granular Lymphs Hairy Cells Smudge Cells Toxic Granulation Toxic Vacuolation Dohle Bodies Ryan Rods Platelet Estimate Hypogranular Platelets Clumped Platelets Giant Platelets Platelet Satelliting RBC Morphology Polychromasia Hypochromasia Poikilocytosis Basophilic Stippling Anisocytosis Microcytosis Macrocytosis Spherocytes Pappenheimer Bodies Sickle Cells Target Cells Tear Drop Cells Ovalocytes Stomatocytes Castro-Collyer Bodies Echinocytes Acanthocytes (Spur) Rouleaux RBC Agglutinates Schistocytes RBC Morph Comment Sezary Cell Sodium 134 L Potassium 5.0 Chloride 108 H Carbon Dioxide 20 L Anion Gap 6.0 BUN 22 H Creatinine 2.92 H D Est Cr Clr Drug Dosing 44.6 Est GFR ( Amer) 29.3 Est GFR (Non-Af Amer) 25.3 BUN/Creatinine Ratio 7.5 L Glucose 93 POC Glucose 91 145 H Lactate Calcium 6.8 L Phosphorus Magnesium Total Bilirubin 0.4 Direct Bilirubin AST 35 ALT 28 Alkaline Phosphatase 62 Total Protein 6.7 Albumin 2.5 L Globulin 4.2 H Albumin/Globulin Ratio 0.6 L Triglycerides 1274 H Lipase Beta-Hydroxybutyric Acd Procalcitonin Random Cortisol Nasal Screen MRSA (PCR) 10/08/21 10/08/21 10/08/21 20:26 21:27 22:31 WBC RBC Hgb Hct MCV MCH MCHC RDW Std Deviation RDW Coeff of Vickie Plt Count MPV Immature Gran % (Auto) Neut % (Auto) Lymph % (Auto) [place] % (Auto) Eos % (Auto) Baso % (Auto) Neut # (Auto) Lymph # (Auto) [place] # (Auto) Eos # (Auto) Baso # (Auto) Immature Gran # (Auto) Absolute Nucleated RBC Nucleated RBC % (auto) Neutrophils % (Manual) Band Neutrophils % Lymphocytes % (Manual) Prolymphocyte % Reactive Lymphs % (Man) Monocytes % (Manual) Eosinophils % (Manual) Basophils % (Manual) Metamyelocytes % (Man) Myelocytes % (Man) Promyelocytes % (Man) Blast Cells % (Manual) Plasma Cell % (Manual) Other Cells % Nucleated RBC % Neutrophils # (Manual) Band Neutrophils # Total Absolute Neuts Lymphocytes # (Manual) Prolymphocyte # Reactive Lymphs # Total Abs Lymphocytes Monocytes # (Manual) Eosinophils # (Manual) Basophils # (Manual) Metamyelocytes # (Man) Myelocytes # (Manual) Promyelocytes # (Man) Blast Cells # (Man) Plasma Cell # (Manual) Other Cells # Nucleated RBCs # (Man) Hypersegmented Neuts Hyposegmented Neuts Hypogranular Neuts Large Granular Lymphs # Lrg Granular Lymphs Hairy Cells Smudge Cells Toxic Granulation Toxic Vacuolation Dohle Bodies Ryan Rods Platelet Estimate Hypogranular Platelets Clumped Platelets Giant Platelets Platelet Satelliting RBC Morphology Polychromasia Hypochromasia Poikilocytosis Basophilic Stippling Anisocytosis Microcytosis Macrocytosis Spherocytes Pappenheimer Bodies Sickle Cells Target Cells Tear Drop Cells Ovalocytes Stomatocytes Castro-Collyer Bodies Echinocytes Acanthocytes (Spur) Rouleaux RBC Agglutinates Schistocytes RBC Morph Comment Sezary Cell Sodium 138 Potassium 4.9 Chloride 106 Carbon Dioxide 22 Anion Gap 10.0 BUN 24 H Creatinine 4.07 H D Est Cr Clr Drug Dosing 32.0 Est GFR ( Amer) 19.6 Est GFR (Non-Af Amer) 16.9 BUN/Creatinine Ratio 6.0 L Glucose 112 H POC Glucose 159 H 139 H Lactate Calcium 6.3 L Phosphorus Magnesium Total Bilirubin Direct Bilirubin AST ALT Alkaline Phosphatase Total Protein Albumin Globulin Albumin/Globulin Ratio Triglycerides Lipase Beta-Hydroxybutyric Acd Procalcitonin Random Cortisol Nasal Screen MRSA (PCR) 10/08/21 10/08/21 10/09/21 22:44 23:47 00:38 WBC RBC Hgb Hct MCV MCH MCHC RDW Std Deviation RDW Coeff of Vickie Plt Count MPV Immature Gran % (Auto) Neut % (Auto) Lymph % (Auto) [place] % (Auto) Eos % (Auto) Baso % (Auto) Neut # (Auto) Lymph # (Auto) [place] # (Auto) Eos # (Auto) Baso # (Auto) Immature Gran # (Auto) Absolute Nucleated RBC Nucleated RBC % (auto) Neutrophils % (Manual) Band Neutrophils % Lymphocytes % (Manual) Prolymphocyte % Reactive Lymphs % (Man) Monocytes % (Manual) Eosinophils % (Manual) Basophils % (Manual) Metamyelocytes % (Man) Myelocytes % (Man) Promyelocytes % (Man) Blast Cells % (Manual) Plasma Cell % (Manual) Other Cells % Nucleated RBC % Neutrophils # (Manual) Band Neutrophils # Total Absolute Neuts Lymphocytes # (Manual) Prolymphocyte # Reactive Lymphs # Total Abs Lymphocytes Monocytes # (Manual) Eosinophils # (Manual) Basophils # (Manual) Metamyelocytes # (Man) Myelocytes # (Manual) Promyelocytes # (Man) Blast Cells # (Man) Plasma Cell # (Manual) Other Cells # Nucleated RBCs # (Man) Hypersegmented Neuts Hyposegmented Neuts Hypogranular Neuts Large Granular Lymphs # Lrg Granular Lymphs Hairy Cells Smudge Cells Toxic Granulation Toxic Vacuolation Dohle Bodies Ryan Rods Platelet Estimate Hypogranular Platelets Clumped Platelets Giant Platelets Platelet Satelliting RBC Morphology Polychromasia Hypochromasia Poikilocytosis Basophilic Stippling Anisocytosis Microcytosis Macrocytosis Spherocytes Pappenheimer Bodies Sickle Cells Target Cells Tear Drop Cells Ovalocytes Stomatocytes Castro-Collyer Bodies Echinocytes Acanthocytes (Spur) Rouleaux RBC Agglutinates Schistocytes RBC Morph Comment Sezary Cell Sodium Potassium Chloride Carbon Dioxide Anion Gap BUN Creatinine Est Cr Clr Drug Dosing Est GFR ( Amer) Est GFR (Non-Af Amer) BUN/Creatinine Ratio Glucose POC Glucose 139 H 89 Lactate Calcium Phosphorus Magnesium Total Bilirubin Direct Bilirubin AST ALT Alkaline Phosphatase Total Protein Albumin Globulin Albumin/Globulin Ratio Triglycerides Lipase Beta-Hydroxybutyric Acd Procalcitonin Random Cortisol Nasal Screen MRSA (PCR) Negative 10/09/21 10/09/21 10/09/21 00:40 00:53 00:53 WBC 8.34 RBC 5.81 Hgb 16.6 Hct 49.4 MCV 85.0 MCH 28.6 MCHC 33.6 RDW Std Deviation 44.2 RDW Coeff of Vickie 14.3 Plt Count 274 MPV 10.0 Immature Gran % (Auto) 0.5 Neut % (Auto) 77.3 Lymph % (Auto) 17.4 [place] % (Auto) 4.4 Eos % (Auto) 0.2 Baso % (Auto) 0.2 Neut # (Auto) 6.44 Lymph # (Auto) 1.45 [place] # (Auto) 0.37 Eos # (Auto) 0.02 Baso # (Auto) 0.02 Immature Gran # (Auto) 0.04 H Absolute Nucleated RBC Nucleated RBC % (auto) Neutrophils % (Manual) Band Neutrophils % Lymphocytes % (Manual) Prolymphocyte % Reactive Lymphs % (Man) Monocytes % (Manual) Eosinophils % (Manual) Basophils % (Manual) Metamyelocytes % (Man) Myelocytes % (Man) Promyelocytes % (Man) Blast Cells % (Manual) Plasma Cell % (Manual) Other Cells % Nucleated RBC % Neutrophils # (Manual) Band Neutrophils # Total Absolute Neuts Lymphocytes # (Manual) Prolymphocyte # Reactive Lymphs # Total Abs Lymphocytes Monocytes # (Manual) Eosinophils # (Manual) Basophils # (Manual) Metamyelocytes # (Man) Myelocytes # (Manual) Promyelocytes # (Man) Blast Cells # (Man) Plasma Cell # (Manual) Other Cells # Nucleated RBCs # (Man) Hypersegmented Neuts Hyposegmented Neuts Hypogranular Neuts Large Granular Lymphs # Lrg Granular Lymphs Hairy Cells Smudge Cells Toxic Granulation Toxic Vacuolation Dohle Bodies Ryan Rods Platelet Estimate Hypogranular Platelets Clumped Platelets Giant Platelets Platelet Satelliting RBC Morphology Polychromasia Hypochromasia Poikilocytosis Basophilic Stippling Anisocytosis Microcytosis Macrocytosis Spherocytes Pappenheimer Bodies Sickle Cells Target Cells Tear Drop Cells Ovalocytes Stomatocytes Castro-Collyer Bodies Echinocytes Acanthocytes (Spur) Rouleaux RBC Agglutinates Schistocytes RBC Morph Comment Sezary Cell Sodium 134 L Potassium 5.8 H D Chloride 105 Carbon Dioxide 22 Anion Gap 8.0 BUN 27 H Creatinine 4.36 H Est Cr Clr Drug Dosing 29.8 Est GFR ( Amer) 18.1 Est GFR (Non-Af Amer) 15.6 BUN/Creatinine Ratio 6.2 L Glucose 161 H POC Glucose 149 H Lactate Calcium 6.3 L Phosphorus 0.8 L* D Magnesium 1.7 L Total Bilirubin 0.6 Direct Bilirubin 0.2 AST 40 H ALT 26 Alkaline Phosphatase 66 Total Protein 7.1 Albumin 2.8 L Globulin Albumin/Globulin Ratio Triglycerides 1171 H Lipase 4143 H Beta-Hydroxybutyric Acd Procalcitonin Random Cortisol Nasal Screen MRSA (PCR) 10/09/21 10/09/21 10/09/21 00:53 00:53 01:05 WBC RBC Hgb Hct MCV MCH MCHC RDW Std Deviation RDW Coeff of Vickie Plt Count MPV Immature Gran % (Auto) Neut % (Auto) Lymph % (Auto) [place] % (Auto) Eos % (Auto) Baso % (Auto) Neut # (Auto) Lymph # (Auto) [place] # (Auto) Eos # (Auto) Baso # (Auto) Immature Gran # (Auto) Absolute Nucleated RBC Nucleated RBC % (auto) Neutrophils % (Manual) Band Neutrophils % Lymphocytes % (Manual) Prolymphocyte % Reactive Lymphs % (Man) Monocytes % (Manual) Eosinophils % (Manual) Basophils % (Manual) Metamyelocytes % (Man) Myelocytes % (Man) Promyelocytes % (Man) Blast Cells % (Manual) Plasma Cell % (Manual) Other Cells % Nucleated RBC % Neutrophils # (Manual) Band Neutrophils # Total Absolute Neuts Lymphocytes # (Manual) Prolymphocyte # Reactive Lymphs # Total Abs Lymphocytes Monocytes # (Manual) Eosinophils # (Manual) Basophils # (Manual) Metamyelocytes # (Man) Myelocytes # (Manual) Promyelocytes # (Man) Blast Cells # (Man) Plasma Cell # (Manual) Other Cells # Nucleated RBCs # (Man) Hypersegmented Neuts Hyposegmented Neuts Hypogranular Neuts Large Granular Lymphs # Lrg Granular Lymphs Hairy Cells Smudge Cells Toxic Granulation Toxic Vacuolation Dohle Bodies Ryan Rods Platelet Estimate Hypogranular Platelets Clumped Platelets Giant Platelets Platelet Satelliting RBC Morphology Polychromasia Hypochromasia Poikilocytosis Basophilic Stippling Anisocytosis Microcytosis Macrocytosis Spherocytes Pappenheimer Bodies Sickle Cells Target Cells Tear Drop Cells Ovalocytes Stomatocytes Castro-Collyer Bodies Echinocytes Acanthocytes (Spur) Rouleaux RBC Agglutinates Schistocytes RBC Morph Comment Sezary Cell Sodium Potassium Chloride Carbon Dioxide Anion Gap BUN Creatinine Est Cr Clr Drug Dosing Est GFR ( Amer) Est GFR (Non-Af Amer) BUN/Creatinine Ratio Glucose POC Glucose Lactate 0.5 Calcium Phosphorus Magnesium Total Bilirubin Direct Bilirubin AST ALT Alkaline Phosphatase Total Protein Albumin Globulin Albumin/Globulin Ratio Triglycerides Lipase Beta-Hydroxybutyric Acd Procalcitonin 13.85 H Random Cortisol 54.78 Nasal Screen MRSA (PCR) 10/09/21 10/09/21 10/09/21 01:36 02:32 03:38 WBC RBC Hgb Hct MCV MCH MCHC RDW Std Deviation RDW Coeff of Vickie Plt Count MPV Immature Gran % (Auto) Neut % (Auto) Lymph % (Auto) [place] % (Auto) Eos % (Auto) Baso % (Auto) Neut # (Auto) Lymph # (Auto) [place] # (Auto) Eos # (Auto) Baso # (Auto) Immature Gran # (Auto) Absolute Nucleated RBC Nucleated RBC % (auto) Neutrophils % (Manual) Band Neutrophils % Lymphocytes % (Manual) Prolymphocyte % Reactive Lymphs % (Man) Monocytes % (Manual) Eosinophils % (Manual) Basophils % (Manual) Metamyelocytes % (Man) Myelocytes % (Man) Promyelocytes % (Man) Blast Cells % (Manual) Plasma Cell % (Manual) Other Cells % Nucleated RBC % Neutrophils # (Manual) Band Neutrophils # Total Absolute Neuts Lymphocytes # (Manual) Prolymphocyte # Reactive Lymphs # Total Abs Lymphocytes Monocytes # (Manual) Eosinophils # (Manual) Basophils # (Manual) Metamyelocytes # (Man) Myelocytes # (Manual) Promyelocytes # (Man) Blast Cells # (Man) Plasma Cell # (Manual) Other Cells # Nucleated RBCs # (Man) Hypersegmented Neuts Hyposegmented Neuts Hypogranular Neuts Large Granular Lymphs # Lrg Granular Lymphs Hairy Cells Smudge Cells Toxic Granulation Toxic Vacuolation Dohle Bodies Ryan Rods Platelet Estimate Hypogranular Platelets Clumped Platelets Giant Platelets Platelet Satelliting RBC Morphology Polychromasia Hypochromasia Poikilocytosis Basophilic Stippling Anisocytosis Microcytosis Macrocytosis Spherocytes Pappenheimer Bodies Sickle Cells Target Cells Tear Drop Cells Ovalocytes Stomatocytes Castro-Collyer Bodies Echinocytes Acanthocytes (Spur) Rouleaux RBC Agglutinates Schistocytes RBC Morph Comment Sezary Cell Sodium Potassium Chloride Carbon Dioxide Anion Gap BUN Creatinine Est Cr Clr Drug Dosing Est GFR ( Amer) Est GFR (Non-Af Amer) BUN/Creatinine Ratio Glucose POC Glucose 146 H 146 H 141 H Lactate Calcium Phosphorus Magnesium Total Bilirubin Direct Bilirubin AST ALT Alkaline Phosphatase Total Protein Albumin Globulin Albumin/Globulin Ratio Triglycerides Lipase Beta-Hydroxybutyric Acd Procalcitonin Random Cortisol Nasal Screen MRSA (PCR) 10/09/21 10/09/21 10/09/21 04:35 05:03 05:03 WBC Cancelled RBC Cancelled Hgb Cancelled Hct Cancelled MCV Cancelled MCH Cancelled MCHC Cancelled RDW Std Deviation Cancelled RDW Coeff of Vickie Cancelled Plt Count Cancelled MPV Cancelled Immature Gran % (Auto) Cancelled Neut % (Auto) Cancelled Lymph % (Auto) Cancelled [place] % (Auto) Cancelled Eos % (Auto) Cancelled Baso % (Auto) Cancelled Neut # (Auto) Cancelled Lymph # (Auto) Cancelled [place] # (Auto) Cancelled Eos # (Auto) Cancelled Baso # (Auto) Cancelled Immature Gran # (Auto) Cancelled Absolute Nucleated RBC Cancelled Nucleated RBC % (auto) Cancelled Neutrophils % (Manual) Cancelled Band Neutrophils % Cancelled Lymphocytes % (Manual) Cancelled Prolymphocyte % Cancelled Reactive Lymphs % (Man) Cancelled Monocytes % (Manual) Cancelled Eosinophils % (Manual) Cancelled Basophils % (Manual) Cancelled Metamyelocytes % (Man) Cancelled Myelocytes % (Man) Cancelled Promyelocytes % (Man) Cancelled Blast Cells % (Manual) Cancelled Plasma Cell % (Manual) Cancelled Other Cells % Cancelled Nucleated RBC % Cancelled Neutrophils # (Manual) Cancelled Band Neutrophils # Cancelled Total Absolute Neuts Cancelled Lymphocytes # (Manual) Cancelled Prolymphocyte # Cancelled Reactive Lymphs # Cancelled Total Abs Lymphocytes Cancelled Monocytes # (Manual) Cancelled Eosinophils # (Manual) Cancelled Basophils # (Manual) Cancelled Metamyelocytes # (Man) Cancelled Myelocytes # (Manual) Cancelled Promyelocytes # (Man) Cancelled Blast Cells # (Man) Cancelled Plasma Cell # (Manual) Cancelled Other Cells # Cancelled Nucleated RBCs # (Man) Cancelled Hypersegmented Neuts Cancelled Hyposegmented Neuts Cancelled Hypogranular Neuts Cancelled Large Granular Lymphs Cancelled # Lrg Granular Lymphs Cancelled Hairy Cells Cancelled Smudge Cells Cancelled Toxic Granulation Cancelled Toxic Vacuolation Cancelled Dohle Bodies Cancelled Ryan Rods Cancelled Platelet Estimate Cancelled Hypogranular Platelets Cancelled Clumped Platelets Cancelled Giant Platelets Cancelled Platelet Satelliting Cancelled RBC Morphology Cancelled Polychromasia Cancelled Hypochromasia Cancelled Poikilocytosis Cancelled Basophilic Stippling Cancelled Anisocytosis Cancelled Microcytosis Cancelled Macrocytosis Cancelled Spherocytes Cancelled Pappenheimer Bodies Cancelled Sickle Cells Cancelled Target Cells Cancelled Tear Drop Cells Cancelled Ovalocytes Cancelled Stomatocytes Cancelled Castro-Collyer Bodies Cancelled Echinocytes Cancelled Acanthocytes (Spur) Cancelled Rouleaux Cancelled RBC Agglutinates Cancelled Schistocytes Cancelled RBC Morph Comment Cancelled Sezary Cell Cancelled Sodium Cancelled Potassium Cancelled Chloride Cancelled Carbon Dioxide Cancelled Anion Gap Cancelled BUN Cancelled Creatinine Cancelled Est Cr Clr Drug Dosing Cancelled Est GFR ( Amer) Cancelled Est GFR (Non-Af Amer) Cancelled BUN/Creatinine Ratio Cancelled Glucose Cancelled POC Glucose 161 H Lactate Calcium Cancelled Phosphorus Cancelled Magnesium Cancelled Total Bilirubin Direct Bilirubin AST ALT Alkaline Phosphatase Total Protein Albumin Globulin Albumin/Globulin Ratio Triglycerides Cancelled Lipase Beta-Hydroxybutyric Acd Procalcitonin Random Cortisol Nasal Screen MRSA (PCR) 10/09/21 10/09/21 10/09/21 06:06 06:06 07:12 WBC 8.68 RBC 5.45 Hgb 15.3 Hct 46.1 MCV 84.6 MCH 28.1 MCHC 33.2 RDW Std Deviation 44.4 RDW Coeff of Vickie 14.4 Plt Count 290 MPV 9.8 Immature Gran % (Auto) 0.5 Neut % (Auto) 76.4 Lymph % (Auto) 19.6 [place] % (Auto) 3.1 Eos % (Auto) 0.2 Baso % (Auto) 0.2 Neut # (Auto) 6.63 H Lymph # (Auto) 1.70 [place] # (Auto) 0.27 Eos # (Auto) 0.02 Baso # (Auto) 0.02 Immature Gran # (Auto) 0.04 H Absolute Nucleated RBC Nucleated RBC % (auto) Neutrophils % (Manual) Band Neutrophils % Lymphocytes % (Manual) Prolymphocyte % Reactive Lymphs % (Man) Monocytes % (Manual) Eosinophils % (Manual) Basophils % (Manual) Metamyelocytes % (Man) Myelocytes % (Man) Promyelocytes % (Man) Blast Cells % (Manual) Plasma Cell % (Manual) Other Cells % Nucleated RBC % Neutrophils # (Manual) Band Neutrophils # Total Absolute Neuts Lymphocytes # (Manual) Prolymphocyte # Reactive Lymphs # Total Abs Lymphocytes Monocytes # (Manual) Eosinophils # (Manual) Basophils # (Manual) Metamyelocytes # (Man) Myelocytes # (Manual) Promyelocytes # (Man) Blast Cells # (Man) Plasma Cell # (Manual) Other Cells # Nucleated RBCs # (Man) Hypersegmented Neuts Hyposegmented Neuts Hypogranular Neuts Large Granular Lymphs # Lrg Granular Lymphs Hairy Cells Smudge Cells Toxic Granulation Toxic Vacuolation Dohle Bodies 1+ Ryan Rods Platelet Estimate Hypogranular Platelets Clumped Platelets Giant Platelets Platelet Satelliting RBC Morphology Polychromasia Hypochromasia Poikilocytosis Basophilic Stippling Anisocytosis Microcytosis Macrocytosis Spherocytes Pappenheimer Bodies Sickle Cells Target Cells Tear Drop Cells Ovalocytes Stomatocytes Castro-Collyer Bodies Echinocytes Acanthocytes (Spur) Rouleaux RBC Agglutinates Schistocytes RBC Morph Comment Sezary Cell Sodium 134 L Potassium 4.5 D Chloride 104 Carbon Dioxide 21 Anion Gap 9.0 BUN 28 H Creatinine 4.69 H* D Est Cr Clr Drug Dosing 27.6 Est GFR ( Amer) 16.5 Est GFR (Non-Af Amer) 14.3 BUN/Creatinine Ratio 6.0 L Glucose 352 H* POC Glucose 183 H Lactate Calcium 6.1 L Phosphorus 0.9 L* Magnesium 2.0 Total Bilirubin Direct Bilirubin AST ALT Alkaline Phosphatase Total Protein Albumin Globulin Albumin/Globulin Ratio Triglycerides 1007 H Lipase Beta-Hydroxybutyric Acd 1.46 Procalcitonin Random Cortisol Nasal Screen MRSA (PCR) 10/09/21 10/09/21 08:14 10:02 WBC RBC Hgb Hct MCV MCH MCHC RDW Std Deviation RDW Coeff of Vickie Plt Count MPV Immature Gran % (Auto) Neut % (Auto) Lymph % (Auto) [place] % (Auto) Eos % (Auto) Baso % (Auto) Neut # (Auto) Lymph # (Auto) [place] # (Auto) Eos # (Auto) Baso # (Auto) Immature Gran # (Auto) Absolute Nucleated RBC Nucleated RBC % (auto) Neutrophils % (Manual) Band Neutrophils % Lymphocytes % (Manual) Prolymphocyte % Reactive Lymphs % (Man) Monocytes % (Manual) Eosinophils % (Manual) Basophils % (Manual) Metamyelocytes % (Man) Myelocytes % (Man) Promyelocytes % (Man) Blast Cells % (Manual) Plasma Cell % (Manual) Other Cells % Nucleated RBC % Neutrophils # (Manual) Band Neutrophils # Total Absolute Neuts Lymphocytes # (Manual) Prolymphocyte # Reactive Lymphs # Total Abs Lymphocytes Monocytes # (Manual) Eosinophils # (Manual) Basophils # (Manual) Metamyelocytes # (Man) Myelocytes # (Manual) Promyelocytes # (Man) Blast Cells # (Man) Plasma Cell # (Manual) Other Cells # Nucleated RBCs # (Man) Hypersegmented Neuts Hyposegmented Neuts Hypogranular Neuts Large Granular Lymphs # Lrg Granular Lymphs Hairy Cells Smudge Cells Toxic Granulation Toxic Vacuolation Dohle Bodies Ryan Rods Platelet Estimate Hypogranular Platelets Clumped Platelets Giant Platelets Platelet Satelliting RBC Morphology Polychromasia Hypochromasia Poikilocytosis Basophilic Stippling Anisocytosis Microcytosis Macrocytosis Spherocytes Pappenheimer Bodies Sickle Cells Target Cells Tear Drop Cells Ovalocytes Stomatocytes Castro-Collyer Bodies Echinocytes Acanthocytes (Spur) Rouleaux RBC Agglutinates Schistocytes RBC Morph Comment Sezary Cell Sodium Potassium Chloride Carbon Dioxide Anion Gap BUN Creatinine Est Cr Clr Drug Dosing Est GFR ( Amer) Est GFR (Non-Af Amer) BUN/Creatinine Ratio Glucose POC Glucose 166 H 169 H Lactate Calcium Phosphorus Magnesium Total Bilirubin Direct Bilirubin AST ALT Alkaline Phosphatase Total Protein Albumin Globulin Albumin/Globulin Ratio Triglycerides Lipase Beta-Hydroxybutyric Acd Procalcitonin Random Cortisol Nasal Screen MRSA (PCR) PG Care Time/CCT Total # of Minutes Spent Total Time Spent with Patient: Total time spent is greater than 50% in coordination of care (as documented) at patient's floor/unit and/or counseling patient: Coding Level of Care Code 54391 Inpt Consult Level 4 Diagnoses Ileus K56.7 Hypotension I95.9 JE (acute kidney injury) N17.9 Hypertriglyceridemia E78.1
[2021-10-09] MEDS: INSULIN REGULAR 250 UNITS in SODIUM CHLORIDE 0.9% 247.5 ML IV SCH (11:48)
--- NOTE | 2021-10-09 12:17 | Communication Note ---
Date of Service: October 09, 2021 Patient seen and examined. EMR reviewed. Discussed with critical care ISIDRO from overnight as well as with president trust company at the bedside. The patient continues to have abdominal pain. 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 I performed a bedside ultrasound. He has minimal ascites present, with a small pocket identified in the right lower quadrant. Doubt that draining this fluid would offer him any clinical benefit. Imaging was independently reviewed. There is no significant peripancreatic necrosis, phlegmon, or other signs of abdominal infection although the patient is certainly at risk. We will hold on antibiotics for now. Discussed with nephrology. Treatment for severe pancreatitis with elevated triglycerides typically involves pheresis with reduction of triglyceride levels down to 500. Communicated to hospitalist who will reach out to any facilities who have capability of performing pheresis to see whether or not he can be accepted. Given the COVID- pandemic in bed shortages, I am not sure this is a possibility. For now we will continue insulin and glucose in an effort to try and keep his triglycerides normal. Appreciate general surgery consultation. The patient is at risk for abdominal compartment syndrome however measuring bladder pressures in this patient is complicated as it is spontaneously breathing patient, the pressures may not be adequate due to abdominal musculature contractions especially with placement of a Beasley catheter. Regardless, the only intervention would be a decompressive laparotomy at this point in time which the patient and surgeons are not likely to undertake and was the patient should deteriorate clinically. Dr. Soares from nephrology agrees that dialysis may be necessary in the next day or 2. His acid-base status and electrolytes are currently stable. We will hold on placing access for dialysis currently. He is not a candidate for PD dialysis given acute pancreatitis. I am reluctant to give him additional IV fluids at this point time as they will likely third space and may cause worsening of his peripancreatic edema. His albumin and calcium levels are low and these will be repleted. Patient remains critically ill with significant possibility of decline in organ function and need for escalation of care. An additional 45 minutes of critical care time was spent in evaluation management and stabilization of this patient. Coding Level of Care Code Critical Care ea addt'l 30 min Time Spent (min) 45 Comment [id number]
[2021-10-09] MEDS ORDERED: CALCIUM GLUCONATE 10% 3,000 MG in 0.9 % SODIUM CHLORIDE 100 ML IV ONE (13:00)
[2021-10-09] MEDS ORDERED: Nursing to Pharmacy Communication STA (13:45)
[2021-10-09] MEDS: ALBUMIN 25% 100 mL 25 GM/100 ML VIAL IV SCH ×2 (14:52→17:02)
[2021-10-09] MEDS: PHENYLEPHRINE HCL 40 MG in DEXTROSE 5% 500 ML IV SCH (21:47)
[2021-10-10] MEDS: SODI CHLOR 2.5MEQ/ML 14.6% 77 MEQ in DEXTROSE 10% 1,000 ML IV SCH (04:45)
--- NOTE | 2021-10-10 05:45 | Surgery Progress Note ---
Date of Service October 10, 2021 Assessment & Plan (1) Pancreatitis: Plan: Patient has been admitted by the hospitalist. We are proceeding as follows: Suspected cause of pancreatitis is hypertriglyceridemia Medical team is utilizing insulin drip attempts to lower patient's triglyceride level. Consideration has been given to transfer patient to a facility where plasmapheresis can be undertaken Patient has developed an ileus. Would recommend continuing NG tube and n.p.o. status. Continue hydration measures with IV fluids Continue analgesics Continue antiemetics Acute kidney injury noted. Nephrology is following the may consider temporary dialysis if creatinine continues to rise. Repeat CAT scan on 10/08/2021 showed progression of patient's pancreatitis but did not show any evidence of pancreatic necrosis At the present time no plans for acute surgical intervention; maintain supportive care Admission and Anticipated Discharge Date Admission Date: October 07, 2021 Supervising Physician Co-Signing Physician Notes As per Kimo Hahn physician bricklayer's assistant Patient clinically and chemically improving Subjective Patient is resting comfortably in bed. He notes his abdominal pain has improved markedly since admission. He notes he is currently not short of breath. He is not passing flatus and has not moved his bowels. He denies any nausea vomiting at the present time Discussed with RN. She notes that the patient is making urine. She notes his pain has improved. She does not report any acute issues for the present time Physical Exam Respiratory: normal respiratory effort; no respiratory distress and no labored breathing Breath sounds are decreased at bases Cardiovascular: Rate/Rhythm: regular rate, regular rhythm and + tachycardic Gastrointestinal (Abdomen): Abdomen is rotund and distended. Bowel sounds are hypoactive to absent. There is minimal to no pain with palpation in the epigastric area or left upper quadrant which was noted at time of admission. Smiley Hauser and Alexi signs are both negative. Results & Data ([facility]) Vital Signs (Past 12 Hours) Vital Signs Temp Pulse Resp BP BP Pulse Ox 10/10/21 05:30 132 H 16 122/69 93 10/10/21 05:00 135 H 21 101/57 L 92 10/10/21 04:30 134 H 20 113/58 L 94 10/10/21 04:00 137 H 20 102/79 93 10/10/21 03:30 137 H 22 111/74 92 10/10/21 03:00 137 H 19 106/81 92 10/10/21 02:30 137 H 22 110/64 94 10/10/21 02:00 137 H 20 117/73 93 10/10/21 01:30 138 H 20 102/70 92 10/10/21 01:00 136 H 19 105/46 L 95 10/10/21 00:30 139 H 20 96/53 L 95 10/10/21 00:00 37.4 C 136 H 17 103/65 94 10/09/21 23:30 137 H 20 115/77 93 10/09/21 23:00 141 H 21 113/53 L 94 10/09/21 22:30 143 H 24 112/57 L 93 10/09/21 22:00 144 H 16 120/61 96 10/09/21 21:30 142 H 22 102/72 94 10/09/21 21:00 138 H 23 137/85 93 10/09/21 20:30 138 H 25 H 118/81 94 10/09/21 20:00 38.1 C H 141 H 23 92/74 L 96 10/09/21 19:30 133 H 19 114/63 93 10/09/21 19:00 133 H 24 108/68 96 10/09/21 18:00 126/82 86/64 L PG Care Time/CCT Total # of Minutes Spent Total Time Spent with Patient: Total time spent is greater than 50% in coordination of care (as documented) at patient's floor/unit and/or counseling patient: Coding Level of Care Code 80978 Subseq Hosp Care Lvl 1 Diagnoses Pancreatitis K85.90
[2021-10-10 05:56] LABS: Hemoglobin 13.1 g/dL (14.0-18.0); Mean Corpuscular Hemoglobin 27.6 pg (25-34); Mean Corpuscular Hgb Conc 33.6 g/dL (32-36); Mean Corpuscular Volume 82.1 fL (80-100); Mean Platelet Volume 9.9 fL (7.4-10.4); Platelet Count 251 K/uL (130-400); RDW Coefficient of Variation 14.2 % (11.5-14.5); RDW Standard Deviation 42.7 fL (36.4-46.3); Red Blood Count 4.75 M/uL (4.7-6.1); White Blood Count 6.88 K/uL (4.8-10.8)
[2021-10-10 06:34] LABS: Albumin Level 2.7 gm/dl (3.4-5.0); BUN Creatinine Ratio 11.2 (10-20); Bilirubin Direct 0.2 mg/dl (0-0.2); Calcium 6.6 mg/dl (8.5-10.1); Creatinine Clr Calc Pharmacy 40.3 ml/min; Est GFR (African American) 25.5 ml/min; Magnesium 1.6 mg/dl (1.8-2.4); Phosphorus 3.5 mg/dl (2.5-4.9); Potassium 3.6 mmol/L (3.5-5.1); Total Protein 6.7 gm/dl (6.4-8.2)
[2021-10-10 06:54] LABS: Basophils # (auto) 0.01 K/uL (0-0.2); Basophils % (auto) 0.1 %; Dohle Bodies 1+; Eosinophils % (auto) 1.5 %; Immature Granulocytes # (auto) 0.03 K/uL (0.00-0.02); Immature Granulocytes % (auto) 0.4 %; Lymphocytes # (auto) 1.26 K/uL (1.2-3.4); Lymphocytes % (auto) 18.3 %; Monocytes # (auto) 0.33 K/uL (0.11-0.59); Monocytes % (auto) 4.8 %; Neutrophils # (auto) 5.15 K/uL (1.4-6.5); Neutrophils % (auto) 74.9 %
--- NOTE | 2021-10-10 08:06 | Critical Care Progress Note ---
Date of Service October 10, 2021 Assessment & Plan (1) Admitted to intensive care unit: (2) Pancreatitis: (3) JE (acute kidney injury): (4) Hypertriglyceridemia: (5) Hypotension: Plan: Impression: 41-year-old male presenting with severe pancreatitis likely secondary to hypertriglyceridemia. He was transferred to the ICU on 10/09/2021 for hypotension requiring pressors and acute kidney failure. 24-hour events: Patient was seen by nephrology general surgery and GI. Attempts were made to transfer the patient for plasmapheresis given his hypertriglyceridemia. He is waitlisted at [facility]. He is continu ed on insulin and dextrose. He was placed on a [employer]. His pain control is improved. His urine output has picked up significantly over the last 12 to 24hours. Lab values are better. He still has minimal bowel sounds and no flatus. Recommendations NEURO -pain control with [employer] A[employer]. See bowel regimen below. CARDIAC/VASCULAR -sinus tach secondary to underlying pancreatitis. He appears adequately fluid resuscitated. Reluctant to use additional IV fluids given potential third spacing. He is on low-dose of Joel-Synephrine. Holding beta- robyn. Lactic acid normal. Continue insulin and glucose infusion. See below under endocrine. Continue therapy until triglycerides are less than 500. Awaiting potential referral to tertiary center although it may be that the patie nt improves and of clinically before bed actually becomes available. Wean Joel- Synephrine as tolerated. Random cortisol was normal. He is almost 11 L positive from admission. RESPIRATORY -history of sleep disordered breathing. Unable to use CPAP due to current NG tube. Continue oxygen titrated to keep saturations at or above 88%. GI/NUTRITION -severe pancreatitis secondary to hypertriglyceridemia. Appreciate GI surgery input. He has underlying ileus. Continue NG tube for now. Would not recommend parenteral nutrition unless the patient is unable to tolerate enteral feeding for 7 to 10 days. Once ileus resolves with bowel sounds and flatus, may consider trickle tube feedings are allowing the patient to take p.o. No indication for pancreatic necrosis or abscess so holding antibiotics for now. Lipase decreasing significantly down to 680 today. Start bowel regiment. Patient is at risk of complications such as pancreatic pseudocyst or phlegmon formation and will need to be followed closely. RENAL/LYTES -acute renal failure. Suspect ATN. Unclear if prerenal component as well. Serum creatinine this morning improved and the patient is no longer oliguric. Mild hyponatremia and hypokalemia. Remains with low calcium which will be repleted as well. Replete magnesium. He responded favorably to albumin yesterday we will try additional albumin support today. Keep Beasley catheter -Beasley catheter ENDO -continue insulin 8 units an hour. The patient is already receiving a fairly high dose of dextrose so we will hold off on increasing his insulin infusion. He is responding albeit slowly. Triglycerides are now down to about 700. HEME -no evidence of bleeding. White blood cell count normal and hemoglobin and hematocrit stable. Platelet count stable. ID - procalcitonin decreasing. Nonspecific finding. Holding antibiotics for now LINES/IV ACCESS - * PIVs x2 * Beasley * PICC * DVT PROPHYLAXIS - * Subcu heparin Await transfer to tertiary center. I have personally spent 45 minutes of critical care time in the direct management of this patient. Discussed with patient and critical care nurse at bedside. This is a life/limb threatening event. This includes time spent evaluating patient, direct bedside care, chart review, placing orders, interpretation of diagnostic studies, discussion with consultants, patient, and family members, as well as other required patient management activities. This time is exclusive of all separately billable procedures, and teaching time and separate from and in addition to any other critical care service time. Admission and Anticipated Discharge Date Admission Date: October 07, 2021 Subjective Patient seen and examined. EMR reviewed. Discussed with critical care nurse at bedside. The patient feels improved this morning. He remains tachycardic but his pain control is much better on the [employer]FFA[employer]. GI and surgical consultations were reviewed. He started making urine. He feels thirsty. He is not having any nausea. No bowel movements as of yet Review of Systems Review of Systems: All systems reviewed & are unremarkable except as noted in Subjective Physical Exam Constitutional: well developed and + obese; + uncomfortable and not edematous Eyes: + anicteric sclerae; no corneal abnormality ENMT: Mouth: no oral mucosal abnormality and oral mucous membranes not dry Neck: normal visual inspection and trachea midline Respiratory: normal respiratory effort Auscultation: lungs clear to auscultation bilaterally and + diminished lung sounds Cardiovascular: Rate/Rhythm: + tachycardic Heart Sounds: normal S1 and normal S2 Extremities: + pedal edema; no calf tenderness Gastrointestinal (Abdomen): Inspection/Auscultation: + abdomen distended; + abnormal bowel sounds Percussion/Palpation: + abdomen tender and + tympanic to percussion; no guarding and no ascites Musculoskeletal: Extremities: no cyanosis and no clubbing Skin: normal turgor; no lesions Neurologic: Motor/Sensory: no tremor and no asterixis Psychiatric: Orientation: alert and oriented x 3 Results & Data Results & Data ([facility]) Vital Signs (Past 12 Hours) Vital Signs Temp Pulse Resp BP Pulse Ox 10/10/21 06:00 134 H 18 126/75 94 10/10/21 05:30 132 H 16 122/69 93 10/10/21 05:00 135 H 21 101/57 L 92 10/10/21 04:30 134 H 20 113/58 L 94 10/10/21 04:00 137 H 20 102/79 93 10/10/21 03:30 137 H 22 111/74 92 10/10/21 03:00 137 H 19 106/81 92 10/10/21 02:30 137 H 22 110/64 94 10/10/21 02:00 137 H 20 117/73 93 10/10/21 01:30 138 H 20 102/70 92 10/10/21 01:00 136 H 19 105/46 L 95 10/10/21 00:30 139 H 20 96/53 L 95 10/10/21 00:00 37.4 C 136 H 17 103/65 94 10/09/21 23:30 137 H 20 115/77 93 10/09/21 23:00 141 H 21 113/53 L 94 10/09/21 22:30 143 H 24 112/57 L 93 10/09/21 22:00 144 H 16 120/61 96 10/09/21 21:30 142 H 22 102/72 94 10/09/21 21:00 138 H 23 137/85 93 10/09/21 20:30 138 H 25 H 118/81 94 Critical Care Results & Data Vital Signs (Past 12 Hours) Vital Signs Temp Pulse Resp BP Pulse Ox 10/10/21 06:00 134 H 18 126/75 94 10/10/21 05:30 132 H 16 122/69 93 10/10/21 05:00 135 H 21 101/57 L 92 10/10/21 04:30 134 H 20 113/58 L 94 10/10/21 04:00 137 H 20 102/79 93 10/10/21 03:30 137 H 22 111/74 92 10/10/21 03:00 137 H 19 106/81 92 10/10/21 02:30 137 H 22 110/64 94 10/10/21 02:00 137 H 20 117/73 93 10/10/21 01:30 138 H 20 102/70 92 10/10/21 01:00 136 H 19 105/46 L 95 10/10/21 00:30 139 H 20 96/53 L 95 10/10/21 00:00 37.4 C 136 H 17 103/65 94 10/09/21 23:30 137 H 20 115/77 93 10/09/21 23:00 141 H 21 113/53 L 94 10/09/21 22:30 143 H 24 112/57 L 93 10/09/21 22:00 144 H 16 120/61 96 10/09/21 21:30 142 H 22 102/72 94 10/09/21 21:00 138 H 23 137/85 93 10/09/21 20:30 138 H 25 H 118/81 94 Lab & Micro Results (Past 24 Hours) RBC 4.75 M/uL (4.7-6.1) 10/10/21 WBC 6.88 K/uL (4.8-10.8) 10/10/21 Hgb 13.1 g/dL (14.0-18.0) L 10/10/21 Hct 39.0 % (42-52) L 10/10/21 MCV 82.1 fL (80-100) 10/10/21 MCH 27.6 pg (25-34) 10/10/21 MCHC 33.6 g/dL (32-36) 10/10/21 RDW Standard Deviation 42.7 fL (36.4-46.3) 10/10/21 RDW Coefficient of Variation 14.2 % (11.5-14.5) 10/10/21 Plt Count 251 K/uL (130-400) 10/10/21 MPV 9.9 fL (7.4-10.4) 10/10/21 Neutrophils (%) (Auto) 74.9 % 10/10/21 Lymphocytes (%) (Auto) 18.3 % 10/10/21 Monocytes # (Auto) 0.33 K/uL (0.11-0.59) 10/10/21 Eosinophils # (Auto) 0.10 K/uL (0-0.5) 10/10/21 Immature Granulocyte % (Auto) 0.4 % 10/10/21 Neutrophils # (Auto) 5.15 K/uL (1.4-6.5) 10/10/21 Lymphocytes # (Auto) 1.26 K/uL (1.2-3.4) 10/10/21 Monocytes # (Auto) 0.33 K/uL (0.11-0.59) 10/10/21 Eosinophils # (Auto) 0.10 K/uL (0-0.5) 10/10/21 Basophils # (Auto) 0.01 K/uL (0-0.2) 10/10/21 Immature Granulocyte # (Auto) 0.03 K/uL (0.00-0.02) H 10/10/21 Dohle Bodies 1+ 10/10/21 Na 134 mmol/L (136-145) L 10/10/21 K 3.6 mmol/L (3.5-5.1) 10/10/21 Cl 102 mmol/L (98-107) 10/10/21 CO2 22 mmol/L (21-32) 10/10/21 Anion Gap 10.0 (3-11) 10/10/21 BUN 37 mg/dl (7-18) H 10/10/21 Creatinine 3.28 mg/dl (0.6-1.4) H 10/10/21 Estimated GFR ( Amer) 25.5 ml/min 10/10/21 Estimated GFR (Non-Af Amer) 22.0 ml/min 10/10/21 BUN/Creatinine Ratio 11.2 (10-20) 10/10/21 Glu 107 mg/dl (70-99) H 10/10/21 Ca 6.6 mg/dl (8.5-10.1) L 10/10/21 Phosphorus Level 3.5 mg/dl (2.5-4.9) 10/10/21 Total Bilirubin 1.0 mg/dl (0.2-1) 10/10/21 Direct Bilirubin 0.2 mg/dl (0-0.2) 10/10/21 AST 25 U/L (15-37) 10/10/21 ALT 19 (12-78) 10/10/21 Alkaline Phosphatase 61 U/L (45-117) 10/10/21 TP 6.7 gm/dl (6.4-8.2) 10/10/21 Albumin 2.7 gm/dl (3.4-5.0) L 10/10/21 Mg 1.6 mg/dl (1.8-2.4) L 10/10/21 05:02 10/10/21 Calcium Level 6.6 mg/dl (8.5-10.1) L 10/10/21 05:02 10/10/21 I & O Totals 24 Hours 10/09/21 10/10/21 10/11/21 06:59 06:59 06:59 Intake Total 5137.033 / 5137.033 4878.243 / 4878.243 126.693 / 126.693 Output Total 1390 / 1390 1830 / 1830 Balance 3747.033 / 3747.033 3048.243 / 3048.243 126.693 / 126.693 Cumulative 10/07/21 08:46 thru 10/10/21 07:12 Intake Total 25219.969 Output Total 3220 Balance 36340.969 RT Ventilator Mngmt (Last Documented) Ventilator Ordered Settings Respiratory Rate 18 10/10/21 06:00 Ventilator - PT Measurements Respiratory Rate 18 End-Tidal CO2 35 Coding Level of Care Code Critical Care 1st 30-74 mins Diagnoses Admitted to intensive care unit Z78.9 Pancreatitis K85.90 JE (acute kidney injury) N17.9 Hypertriglyceridemia E78.1 Hypotension I95.9
[2021-10-10] MEDS: FAMOTIDINE 20 MG in SYRINGE 3 ML IV SCH ×2 (08:08→20:23)
[2021-10-10] MEDS: VENLAFAXINE HCL 75 MG TAB PO SCH ×2 (08:09→20:23)
[2021-10-10] MEDS: SODIUM CHLORIDE 0.9% 1000ML 1,000 ML IV SCH (08:09)
[2021-10-10] MEDS ORDERED: CALCIUM GLUCONATE 10% 3,000 MG in 0.9 % SODIUM CHLORIDE 100 ML IV ONE (08:45)
--- NOTE | 2021-10-10 08:47 | Hospitalist Progress Note ---
Date of Service October 10, 2021 Assessment & Plan (1) Pancreatitis: Plan: Acute pancreatitis with peripancreatic edema, ?ileus/gastric outlet obs Secondary to hypertriglyceridemia Triglycerides >3000 on admission, downtrending Lipase greater than 21,[address] with contrast 09/28: Mild peripancreatic inflammatory change surrounding pancreatic tail consistent with acute pancreatitis. No signs of abscess or pseudocyst at that time Discussed with radiology pt with JE on admission with postrenal retention but worsening abd symptoms, and necessity of contrast for visualization. Recommended CT with IV contrast to reevaluate for pancreatic necrosis/abscess, but with a half contrast dose will proceed with CT. IV fluids initially lactated Ringer's, converted to D5 NSS plus KCl for titration with insulin drip. Converted to [id number] to minimize volume US limited due to overlying bowel gas and body habitus, nondiagnostic - Stop insulin drip if triglycerides < 500 - Initial concern for Abdominal Compartment Syndrome--> Abdomen tensely distended on exam with worsening renal function, severe edema. Surgery consulted, did not recommend surgical intervention/ decompression. NGT placed 10/08, KUB confirmed placement. Placed to LIS. Minimal output, advanced 2cm with positive fluid return. - Pt transferred to ICU w/ progressive hypotension, worsening ARF, and severe edema. Remains on phyenylephrine - Pt currently unable to be transferred for apheresis due to bed availability: Transfer status as follows > [facility] accepted by Dr. Ramos MICU, however at capacity --> On wait list and they will call daily with status. >[place] ICU Dr. Ewing --> Placed on waitlist, will notify if bed available. > [facility] No beds at all 7 facilities. On wait list, not accepted, will call if bed opens up. (2) JE (acute kidney injury): Plan: JE/ARF Creatinine increased from 1.29 on admission, peaked at 4.69 now downtrending - Initial concern for post-renal, bladder decompressed. Nephro consulted. Consistent with ATN. - Beasley placed following admission - Lisinopril/hctz held - On pressors as above - Temporary dialysis catheter being placed at time of initial visit - Nephrology consulted. (3) MARCELINA (obstructive sleep apnea): Plan: MARCELINA - Continue home nighttime BiPAP - Pt denies history of other lung disease, no hx of oxygen requirement, no hypercarbia on admission If limited by NGT, oxmask overnight with spo2 goal >90%, (4) Hypertriglyceridemia: Plan: Hyperlipidemia held Atorvastatin 10 mg p.o. nightly held Fenofibrate - see pancreatitis above (5) Diabetes mellitus with hyperglycemia: Plan: - On insulin drip for hypertriglyceridemia as above (6) Abdominal pain: Plan: see above (7) High blood pressure: Plan: Hx hypertension, hypotensive during admit Lisinopril held for JE Hydrochlorothiazide held for JE - Metoprolol held for hypotension, on pressor support Plan: Diet: N.p.o, NGT DVT prophylaxis: Lovenox CODE STATUS: Full code Admission and Anticipated Discharge Date Admission Date: October 07, 2021 Subjective Pt is feeling improved, still with pain tachycardia and distended tense abdomen, pt states all are a little better, pt did disclose he was taking testosterone as an outpt under the discretion of an certified hearing instrument dispenser, however elevated endogenous testosterone actually improves lipid panels Review of Systems Review of Systems: Moderate distress and fatigue no headache, no visual changes no speech or swallowing issues no chest pain, pressure or palpitations no shortness of breath, cough or wheezes Significant and persistent abdominal pain, tenseness and distention no nausea or vomiting, diarrhea or constipation no dysuria, hematuria or frequency no focal joint pain or swelling no back pain, CVA tenderness or radicular pain no bruising, bleeding or rashes no focal signs of weakness or numbness or altered sensation no complaints of anxiety or depression.. Physical Exam Physical Exam: The patient appeared well nourished and normally developed. Vital signs as documented. Head exam is normocephalic atraumatic Neck is without JVD, thyromegaly, or carotid bruits. Lungs are clear to auscultation, no focal loss of breath sounds Cardiac exam, Rhythm is regular.. No murmurs, rubs or gallops. Abdominal exam reveals hypo-bowel sounds, distended and tense reproducible tenderness with examination Extremities are nonedematous and both pedal pulses are present Neurologic exam is alert and oriented, no focal loss of strength or sensation Skin is without bruises or rashes Psychologically is without concerns for anxiety or depression.. Results & Data Results & Data ([facility]) Vital Signs (Past 12 Hours) Vital Signs Temp Pulse Pulse Resp BP BP Pulse Ox 10/10/21 08:00 134 H 132 H 17 115/72 94 10/10/21 07:30 134 H 20 95 10/10/21 07:00 135 H 20 93 10/10/21 06:30 135 H 21 129/66 94 10/10/21 06:00 134 H 18 126/75 94 10/10/21 05:30 132 H 16 122/69 93 10/10/21 05:00 135 H 21 101/57 L 92 10/10/21 04:30 134 H 20 113/58 L 94 10/10/21 04:00 137 H 20 102/79 93 10/10/21 03:30 137 H 22 111/74 92 10/10/21 03:00 137 H 19 106/81 92 10/10/21 02:30 137 H 22 110/64 94 10/10/21 02:00 137 H 20 117/73 93 10/10/21 01:30 138 H 20 102/70 92 10/10/21 01:00 136 H 19 105/46 L 95 10/10/21 00:30 139 H 20 96/53 L 95 10/10/21 00:00 99.3 F 136 H 17 103/65 94 10/09/21 23:30 137 H 20 115/77 93 10/09/21 23:00 141 H 21 113/53 L 94 10/09/21 22:30 143 H 24 112/57 L 93 10/09/21 22:00 144 H 16 120/61 96 10/09/21 21:30 142 H 22 102/72 94 10/09/21 21:00 138 H 23 137/85 93 PG Care Time/CCT Total # of Minutes Spent Total Time Spent with Patient: Total time spent is greater than 50% in coordination of care (as documented) at patient's floor/unit and/or counseling patient: Coding Level of Care Code 33488 Subseq Hosp Care Lvl 2 Diagnoses Pancreatitis K85.90 JE (acute kidney injury) N17.9 MARCELINA (obstructive sleep apnea) G47.33 Hypertriglyceridemia E78.1 Diabetes mellitus with hyperglycemia E11.65 Abdominal pain R10.9 High blood pressure I10
--- NOTE | 2021-10-10 08:54 | XRay Report ---
XR chest 1V portable CLINICAL HISTORY: Difficulty breathing. Evaluate for volume overload. COMPARISON STUDY: 10/07/2021 TECHNIQUE: 1 view of the chest FINDINGS: Single frontal view of the chest demonstrates the cardiomediastinal silhouette to be within normal li mits. Compared to previous examination, there is a decreased inspiratory effort with crowding of the bronchovascular markings at the lung bases and centrally. There is bibasilar atelectasis. No definite vascular congestion is seen. However, there is evidence for left pleural effusion. No alveolar opaci ties are present. There is no acute osseous pathology. There is a right-sided PICC line now noted in place with its tip in the right atrium. IMPRESSION: Decreased inspiration with bibasilar atelectasis and evidence for left pleural effusion. No vascular congestion. Evidence for a PICC line with its tip in the right atrium. ACT 112: Negative or not required by law. Electronically signed by: Caden Stout M.D. 10/10/2021 8:52 AM
[2021-10-10] MEDS: ALBUMIN 25% 100 mL 25 GM/100 ML VIAL IV SCH ×2 (09:47→11:20)
[2021-10-10] MEDS: MAGNESIUM SULFATE / D5W 1 GM/100 ML BAG IV SCH ×2 (09:47→13:08)
[2021-10-10] MEDS: DEXTROSE 10% 1,000 ML IV SCH ×2 (11:20→21:35)
--- NOTE | 2021-10-10 12:13 | Nephrology Progress Note ---
Date of Service October 10, 2021 Assessment & Plan (1) JE (acute kidney injury): Plan: * JE likely ATN related to pancreatitis, intravascular volume contraction in the setting of THERESA inhibitor therapy * Cr has improved from 4.6 to 3.2 (baseline Cr 0.9 - 1.2). UO 1800 cc last 24 hours * Hold Lisniopril until Cr returns to baseline * Continue cautious hydration. Patient is net 10 L volume + since admission * Monitor PRP, UO (2) Hypotension: Plan: * On phenylephrine gtt to maintain MAP >65 (3) Hypertriglyceridemia: Plan: * Triglycerides have improved to 771 this am. Continue supportive care * Will likely need high dose statin and fish oil therapy once pancreatitis resolves Admission and Anticipated Discharge Date Admission Date: October 07, 2021 Subjective Mr. Alvarez was evaluated in the ICU this morning. He reports abdominal distention but notes that his pain is controlled w/ medications. He denies dyspnea. Review of Systems Constitutional: no fever Eyes: no problem reported Ear, Nose, Mouth, Throat: no problem reported Respiratory: no dyspnea Cardiovascular: no chest pain Gastrointestinal: + abdominal pain Musculoskeletal: no back pain Integumentary: no rash Neurologic: no confusion Physical Exam Constitutional: + ill appearing and + overweight Eyes: PERRL, conjunctivae normal, anicteric sclerae ENMT: external ear and nose normal, oropharynx normal Neck: trachea midline, no thyromegaly Respiratory: normal respiratory effort, lungs clear to auscultation Cardiovascular: Rate/Rhythm: + tachycardic Gastrointestinal (Abdomen): Inspection/Auscultation: + abdomen distended and + hypoactive bowel sounds Percussion/Palpation: no guarding Neurologic: awake; not confused Results & Data ([facility]) Vital Signs (Past 12 Hours) Vital Signs Temp Pulse Pulse Resp BP BP Pulse Ox 10/10/21 08:00 134 H 132 H 17 115/72 94 10/10/21 07:30 134 H 20 95 10/10/21 07:00 135 H 20 93 10/10/21 06:30 135 H 21 129/66 94 10/10/21 06:00 134 H 18 126/75 94 10/10/21 05:30 132 H 16 122/69 93 10/10/21 05:00 135 H 21 101/57 L 92 10/10/21 04:30 134 H 20 113/58 L 94 10/10/21 04:00 137 H 20 102/79 93 10/10/21 03:30 137 H 22 111/74 92 10/10/21 03:00 137 H 19 106/81 92 10/10/21 02:30 137 H 22 110/64 94 10/10/21 02:00 137 H 20 117/73 93 10/10/21 01:30 138 H 20 102/70 92 10/10/21 01:00 136 H 19 105/46 L 95 10/10/21 00:30 139 H 20 96/53 L 95 10/10/21 00:00 37.4 C 136 H 17 103/65 94 Laboratory Results Laboratory Tests 10/07/21 10/10/21 10/10/21 11:17 05:02 05:02 WBC 6.88 Hgb 13.1 L Hct 39.0 L Plt Count 251 Sodium 134 L Potassium 3.6 D Chloride 102 Carbon Dioxide 22 BUN 37 H Creatinine 3.28 H D Glucose 107 H Calcium 6.6 L Phosphorus 3.5 D AST 25 ALT 19 Alkaline Phosphatase 61 Albumin 2.7 L Triglycerides 771 H Lipase 680 H Urine Color Yellow Urine Appearance Clear Urine pH 5.0 Ur Specific [place] 1.024 Urine Protein 1+ H Urine Glucose (UA) 3+ H Urine Ketones 1+ H Urine Blood Negative Urine WBC (Auto) 1-5 Urine RBC (Auto) 0-4 PG Care Time/CCT Total # of Minutes Spent Total Time Spent with Patient: Total time spent is greater than 50% in coordination of care (as documented) at patient's floor/unit and/or counseling patient: Coding Level of Care Code 05923 Subseq Hosp Care Lvl 3 Diagnoses JE (acute kidney injury) N17.9 Hypotension I95.9 Hypertriglyceridemia E78.1
[2021-10-10] MEDS: INSULIN REGULAR 250 UNITS in SODIUM CHLORIDE 0.9% 247.5 ML IV SCH (13:41)
[2021-10-10] MEDS: HYDROmorphone PCA 30 MG/30 ML IV PRN (19:24)
[2021-10-10] MEDS: METOPROLOL TARTRATE 1 MG/ML VIAL IV PRN (20:19)
[2021-10-11] MEDS: METOPROLOL TARTRATE 1 MG/ML VIAL IV PRN ×3 (00:56→11:08)
[2021-10-11 05:30] LABS: Basophils # (auto) 0.01 K/uL (0-0.2); Basophils % (auto) 0.1 %; Eosinophils # (auto) 0.17 K/uL (0-0.5); Hematocrit (blood only) 39.5 % (42-52); Hemoglobin 13.2 g/dL (14.0-18.0); Immature Granulocytes # (auto) 0.07 K/uL (0.00-0.02); Immature Granulocytes % (auto) 0.8 %; Lymphocytes # (auto) 1.23 K/uL (1.2-3.4); Lymphocytes % (auto) 14.5 %; Mean Corpuscular Hemoglobin 27.6 pg (25-34); Mean Corpuscular Hgb Conc 33.4 g/dL (32-36); Mean Corpuscular Volume 82.6 fL (80-100); Mean Platelet Volume 9.3 fL (7.4-10.4); Monocytes # (auto) 0.72 K/uL (0.11-0.59); Monocytes % (auto) 8.5 %; Neutrophils # (auto) 6.28 K/uL (1.4-6.5); Neutrophils % (auto) 74.1 %; Platelet Count 274 K/uL (130-400); RDW Coefficient of Variation 14.5 % (11.5-14.5); RDW Standard Deviation 43.7 fL (36.4-46.3); Red Blood Count 4.78 M/uL (4.7-6.1); White Blood Count 8.48 K/uL (4.8-10.8)
--- NOTE | 2021-10-11 05:38 | Surgery Progress Note ---
Date of Service October 11, 2021 Assessment & Plan (1) Pancreatitis: Plan: Patient has been admitted by the hospitalist. We are proceeding as follows: Labs reviewed yesterday and patient's lipase, triglycerides, and renal function have all improved (a.m. labs are pending today) Suspected cause of pancreatitis is hypertriglyceridemia Insulin drip is being utilized to lower triglyceride level which was in the 700 range yesterday (labs this a.m. are pending) Attempts are being made to transfer patient for plasmapheresis Due to ileus would continue NG tube and n.p.o. status until bowel function improves further Continue hydration measures with IV fluids Continue analgesics Continue antiemetics Acute kidney injury noted. Nephrology is following. Urine output has improved over the past 24 hours No evidence of pancreatic necrosis on most recent CAT scan from 10/08/2021 Admission and Anticipated Discharge Date Admission Date: October 07, 2021 Supervising Physician Co-Signing Physician Notes As per Kimo Hahn physician neurology physician assistant No surgical issues at this time Subjective Patient currently sitting in bedside chair. He denies any shortness of breath at the present time. He continues to note improvement of abdominal pain since admission. He denies any nausea vomiting. He notes he is passing some flatus but has not had a bowel movement. I discussed with bedside nurse. She does not identify any acute surgical issues. She notes that the patient has been weaned off Joel-Synephrine since yesterday. Physical Exam Gastrointestinal (Abdomen): Abdomen continues to be distended. There is less pain noted with palpation of what was noted at time of admission in the epigastric and left upper quadrants. Results & Data ([facility]) Vital Signs (Past 12 Hours) Vital Signs Temp Pulse Resp BP Pulse Ox 10/11/21 04:00 132 H 19 150/76 H 93 10/11/21 03:00 131 H 22 123/70 95 10/11/21 02:00 131 H 22 117/97 94 10/11/21 01:00 127 H 16 138/72 94 10/11/21 00:56 140 H 115/73 10/11/21 00:00 37.4 C 135 H 17 115/73 93 10/10/21 23:00 138 H 21 119/98 94 10/10/21 22:00 137 H 14 114/83 93 10/10/21 21:00 134 H 16 164/90 H 96 10/10/21 20:19 140 H 153/94 H 10/10/21 20:00 37 C 140 H 19 153/94 H 93 10/10/21 19:00 145 H 18 112/85 93 10/10/21 18:00 139 H 19 93 PG Care Time/CCT Total # of Minutes Spent Total Time Spent with Patient: Total time spent is greater than 50% in coordination of care (as documented) at patient's floor/unit and/or counseling patient: Coding Level of Care Code 30018 Subseq Hosp Care Lvl 1 Diagnoses Pancreatitis K85.90
[2021-10-11 06:01] LABS: Albumin Level 3.1 gm/dl (3.4-5.0); BUN Creatinine Ratio 14.7 (10-20); Bilirubin Direct 0.3 mg/dl (0-0.2); Calcium 8.3 mg/dl (8.5-10.1); Creatinine Clr Calc Pharmacy 95.8 ml/min; Est GFR (African American) 72.6 ml/min; Est GFR (Non-African American) 62.6 ml/min; Potassium 3.5 mmol/L (3.5-5.1)
[2021-10-11 06:02] LABS: Phosphorus 3.6 mg/dl (2.5-4.9); Total Protein 7.6 gm/dl (6.4-8.2)
[2021-10-11 07:01] LABS: Magnesium 2.1 mg/dl (1.8-2.4)
[2021-10-11] MEDS: DEXTROSE 10% 1,000 ML IV SCH (07:50)
[2021-10-11] MEDS: FAMOTIDINE 20 MG in SYRINGE 3 ML IV SCH ×2 (07:50→20:04)
[2021-10-11] MEDS: SODIUM CHLORIDE 0.9% 1000ML 1,000 ML IV SCH ×3 (07:52→22:05)
--- NOTE | 2021-10-11 08:08 | Critical Care Progress Note ---
Date of Service October 11, 2021 Assessment & Plan (1) Admitted to intensive care unit: (2) Pancreatitis: (3) JE (acute kidney injury): (4) Hypertriglyceridemia: (5) Hypotension: Plan: Impression: 41-year-old male presenting with severe pancreatitis likely secondary to hypertriglyceridemia. He was transferred to the ICU on 10/09/2021 for hypotension requiring pressors and acute kidney failure. 24-hour events: Weaned off pressors since yesterday afternoon. Out of bed to chair. Pain control adequate with STEAMBOAT CAPTAIN. Passing gas. Recommendations NEURO -pain control with STEAMBOAT CAPTAIN. See bowel regimen below. CARDIAC/VASCULAR -sinus tach secondary to underlying pancreatitis. Will give 1 dose of diuretics today. Start metoprolol 25 mg p.o. every 8 hours. Would hold on lisinopril given his kidney function. RESPIRATORY -history of sleep disordered breathing. Restart CPAP nightly and when sleeping when NG tube removed. Titrate oxygen to keep saturations at or above 88% GI/NUTRITION -severe pancreatitis secondary to hypertriglyceridemia. Appreciate GI/surgery input. His ileus is improved. We will discontinue NG tube and pursue clear liquid diet today to see how he does. He understands that if he is poorly tolerant the NG tube may need to be replaced. No indication for pancreatic necrosis or abscess so holding antibiotics for now. Lipase decreasing. Patient is at risk of complications such as pancreatic pseudocyst or phlegmon formation and will need to be followed closely. RENAL/LYTES -acute renal failure. Suspect ATN. Markedly better today. We will discontinue Beasley catheter. 1 dose of Lasix. Mild hyponatremia which will be followed. Replace calcium today. Replace potassium -Beasley catheter to be removed today ENDO -continue insulin infusion. Triglycerides are now down to about 430. HEME -no evidence of bleeding. White blood cell count normal and hemoglobin and hematocrit stable. Platelet count stable. ID - procalcitonin decreasing. Nonspecific finding. Holding antibiotics for now LINES/IV ACCESS - * PIVs x2 * Beasley * PICC * DVT PROPHYLAXIS - * Subcu heparin Patient appears significantly improved at this point time. He is stable to transfer out of the intensive care unit. Critical care services will sign off at this point time. Feel free to contact us if we can be of additional assistance. Admission and Anticipated Discharge Date Admission Date: October 07, 2021 Subjective Patient seen and examined. Discussed with bedside critical care nurse. He is making steady improvement. His urine output is picked up. His serum creatinine is much better. His abdominal complaints are improved but not resolved. He continues to complain of some distention. He is still on the STEAMBOAT CAPTAIN pump. He was out of bed to chair. He is off all pressors. He is actually hypertensive at this point time. He continues to demonstrate tachycardia. No fevers chills. No nausea or vomiting. He actually feels like he would be able to tolerate a liquid diet. Review of Systems Review of Systems: All systems reviewed & are unremarkable except as noted in Subjective Physical Exam Constitutional: well developed and + obese; + uncomfortable and not edematous Eyes: + anicteric sclerae; no corneal abnormality ENMT: Mouth: no oral mucosal abnormality and oral mucous membranes not dry Neck: normal visual inspection and trachea midline Respiratory: normal respiratory effort Auscultation: lungs clear to auscultation bilaterally and + diminished lung sounds Cardiovascular: Rate/Rhythm: + tachycardic Heart Sounds: normal S1 and normal S2 Extremities: + pedal edema; no calf tenderness Gastrointestinal (Abdomen): Inspection/Auscultation: + abdomen distended; + abnormal bowel sounds Percussion/Palpation: + abdomen tender and + tympanic to percussion; no guarding and no ascites Musculoskeletal: Extremities: no cyanosis and no clubbing Skin: normal turgor; no lesions Neurologic: Motor/Sensory: no tremor and no asterixis Psychiatric: Orientation: alert and oriented x 3 Results & Data Results & Data ([facility]) Vital Signs (Past 12 Hours) Vital Signs Temp Pulse Resp BP Pulse Ox 10/11/21 06:34 137 H 165/96 H 10/11/21 06:00 134 H 21 165/96 H 94 10/11/21 05:00 131 H 18 149/88 H 95 10/11/21 04:00 132 H 19 150/76 H 93 10/11/21 03:00 131 H 22 123/70 95 10/11/21 02:00 131 H 22 117/97 94 10/11/21 01:00 127 H 16 138/72 94 10/11/21 00:56 140 H 115/73 10/11/21 00:00 37.4 C 135 H 17 115/73 93 10/10/21 23:00 138 H 21 119/98 94 10/10/21 22:00 137 H 14 114/83 93 10/10/21 21:00 134 H 16 164/90 H 96 10/10/21 20:19 140 H 153/94 H Critical Care Results & Data Vital Signs (Past 12 Hours) Vital Signs Temp Pulse Resp BP Pulse Ox 10/11/21 06:34 137 H 165/96 H 10/11/21 06:00 134 H 21 165/96 H 94 10/11/21 05:00 131 H 18 149/88 H 95 10/11/21 04:00 132 H 19 150/76 H 93 10/11/21 03:00 131 H 22 123/70 95 10/11/21 02:00 131 H 22 117/97 94 10/11/21 01:00 127 H 16 138/72 94 10/11/21 00:56 140 H 115/73 10/11/21 00:00 37.4 C 135 H 17 115/73 93 10/10/21 23:00 138 H 21 119/98 94 10/10/21 22:00 137 H 14 114/83 93 10/10/21 21:00 134 H 16 164/90 H 96 10/10/21 20:19 140 H 153/94 H Lab & Micro Results (Past 24 Hours) RBC 4.78 M/uL (4.7-6.1) 10/11/21 WBC 8.48 K/uL (4.8-10.8) 10/11/21 Hgb 13.2 g/dL (14.0-18.0) L 10/11/21 Hct 39.5 % (42-52) L 10/11/21 MCV 82.6 fL (80-100) 10/11/21 MCH 27.6 pg (25-34) 10/11/21 MCHC 33.4 g/dL (32-36) 10/11/21 RDW Standard Deviation 43.7 fL (36.4-46.3) 10/11/21 RDW Coefficient of Variation 14.5 % (11.5-14.5) 10/11/21 Plt Count 274 K/uL (130-400) 10/11/21 MPV 9.3 fL (7.4-10.4) 10/11/21 Neutrophils (%) (Auto) 74.1 % 10/11/21 Lymphocytes (%) (Auto) 14.5 % 10/11/21 Monocytes # (Auto) 0.72 K/uL (0.11-0.59) H 10/11/21 Eosinophils # (Auto) 0.17 K/uL (0-0.5) 10/11/21 Immature Granulocyte % (Auto) 0.8 % 10/11/21 Neutrophils # (Auto) 6.28 K/uL (1.4-6.5) 10/11/21 Lymphocytes # (Auto) 1.23 K/uL (1.2-3.4) 10/11/21 Monocytes # (Auto) 0.72 K/uL (0.11-0.59) H 10/11/21 Eosinophils # (Auto) 0.17 K/uL (0-0.5) 10/11/21 Basophils # (Auto) 0.01 K/uL (0-0.2) 10/11/21 Immature Granulocyte # (Auto) 0.07 K/uL (0.00-0.02) H 10/11/21 2 Na 131 mmol/L (136-145) L 10/11/21 K 3.5 mmol/L (3.5-5.1) 10/11/21 Cl 99 mmol/L (98-107) 10/11/21 CO2 23 mmol/L (21-32) 10/11/21 Anion Gap 9.0 (3-11) 10/11/21 BUN 20 mg/dl (7-18) H 10/11/21 Creatinine 1.38 mg/dl (0.6-1.4) 10/11/21 Estimated GFR ( Amer) 72.6 ml/min 10/11/21 Estimated GFR (Non-Af Amer) 62.6 ml/min 10/11/21 BUN/Creatinine Ratio 14.7 (10-20) 10/11/21 Glu 84 mg/dl (70-99) 10/11/21 Ca 8.3 mg/dl (8.5-10.1) L 10/11/21 Phosphorus Level 3.6 mg/dl (2.5-4.9) 10/11/21 Total Bilirubin 1.0 mg/dl (0.2-1) 10/11/21 Direct Bilirubin 0.3 mg/dl (0-0.2) H 10/11/21 AST 30 U/L (15-37) 10/11/21 ALT 25 (12-78) 10/11/21 Alkaline Phosphatase 74 U/L (45-117) 10/11/21 TP 7.6 gm/dl (6.4-8.2) 10/11/21 Albumin 3.1 gm/dl (3.4-5.0) L 10/11/21 Mg 2.1 mg/dl (1.8-2.4) 10/11/21 04:44 10/11/21 Calcium Level 8.3 mg/dl (8.5-10.1) L 10/11/21 04:44 10/11/21 Diagnostic Findings (Past 24 Hours) Chest X-Ray 10/10/21 06:00 XR chest 1V portable CLINICAL HISTORY: Difficulty breathing. Evaluate for volume overload. COMPARISON STUDY: 10/07/2021 TECHNIQUE: 1 view of the chest FINDINGS: Single frontal view of the chest demonstrates the cardiomediastinal silhouette to be within normal limits. Compared to previous examination, there is a decreased inspiratory effort with crowding of the bronchovascular markings at the lung bases and centrally. There is bibasilar atelectasis. No definite vascular congestion is seen. However, there is evidence for left pleural effusion. No alveolar opacities are present. There is no acute osseous pathology. There is a right-sided PICC line now noted in place with its tip in the right atrium. IMPRESSION: Decreased inspiration with bibasilar atelectasis and evidence for left pleural effusion. No vascular congestion. Evidence for a PICC line with its tip in the right atrium. ACT 112: Negative or not required by law. Electronically signed by: Caden Stout M.D. 10/10/2021 8:52 AM I & O Totals 24 Hours 10/10/21 10/11/21 10/12/21 06:59 06:59 06:59 Intake Total 4878.243 / 4878.243 2787.915 / 2787.915 2094.6 / 2094.6 Output Total 1830 / 1830 4350 / 4350 Balance 3048.243 / 3048.243 -1562.085 / -0781.223 0936.6 / 2094.6 Cumulative 10/07/21 08:46 thru 10/11/21 07:52 Intake Total 28703.791 Output Total 7570 Balance 67005.791 RT Ventilator Mngmt (Last Documented) Ventilator Ordered Settings Respiratory Rate 21 10/11/21 06:00 Ventilator - PT Measurements Respiratory Rate 21 End-Tidal CO2 35 Coding Level of Care Code 38377 Subseq Hosp Care Lvl 3 Diagnoses Admitted to intensive care unit Z78.9 Pancreatitis K85.90 JE (acute kidney injury) N17.9 Hypertriglyceridemia E78.1 Hypotension I95.9
[2021-10-11] MEDS ORDERED: POTASSIUM CHLORIDE 20 MEQ/15 ML UDC PO STA (08:12)
[2021-10-11] MEDS ORDERED: CALCIUM GLUCONATE 10% 1,000 MG in SODIUM CHLORIDE 0.9% 50 ML IV ONE (08:15)
[2021-10-11] MEDS ORDERED: FUROSEMIDE INJ 20 MG/2 ML VIAL IV ONE (08:15)
--- NOTE | 2021-10-11 09:32 | Nephrology Progress Note ---
Date of Service October 11, 2021 Assessment & Plan (1) JE (acute kidney injury): Plan: * JE likely ATN related to pancreatitis, intravascular volume contraction in the setting of THERESA inhibitor therapy * Kidney function has recovered. Cr is back to baseline. Electrolyte balance is acceptable * Hold Lisniopril until bowel function has recovered and patient is able to maintain adequate hydration * Continue cautious hydration. Stop once patient is tolerating oral hydration * Monitor PRP, UO * No further Nephrology evaluation is indicated at this time. Will sign off. Please call if further assistance is needed (2) Hypertriglyceridemia: Plan: * Triglycerides have improved to 305 this am. Continue supportive care * Will likely need high dose statin and fish oil/fibrate therapy once pancreatitis resolves Admission and Anticipated Discharge Date Admission Date: October 07, 2021 Subjective Mr. Alvarez was evaluated in the ICU this morning. He reports abdominal distention/discomfort is mildly improved. He is passing flatus. He denies dyspnea. Review of Systems Constitutional: no fever Eyes: no problem reported Ear, Nose, Mouth, Throat: no problem reported Respiratory: no dyspnea Cardiovascular: no chest pain Gastrointestinal: + abdominal pain Musculoskeletal: no back pain Integumentary: no rash Neurologic: no confusion Physical Exam Constitutional: + overweight Eyes: PERRL, conjunctivae normal, anicteric sclerae ENMT: external ear and nose normal, oropharynx normal Neck: trachea midline, no thyromegaly Respiratory: normal respiratory effort, lungs clear to auscultation Cardiovascular: Rate/Rhythm: + tachycardic Gastrointestinal (Abdomen): Inspection/Auscultation: + abdomen distended and + hypoactive bowel sounds Percussion/Palpation: no guarding Neurologic: awake; not confused Results & Data ([facility]) Vital Signs (Past 12 Hours) Vital Signs Temp Pulse Resp BP Pulse Ox 10/11/21 06:34 137 H 165/96 H 10/11/21 06:00 134 H 21 165/96 H 94 10/11/21 05:00 131 H 18 149/88 H 95 10/11/21 04:00 132 H 19 150/76 H 93 10/11/21 03:00 131 H 22 123/70 95 10/11/21 02:00 131 H 22 117/97 94 10/11/21 01:00 127 H 16 138/72 94 10/11/21 00:56 140 H 115/73 10/11/21 00:00 37.4 C 135 H 17 115/73 93 10/10/21 23:00 138 H 21 119/98 94 10/10/21 22:00 137 H 14 114/83 93 Laboratory Results Laboratory Tests 10/11/21 10/11/21 04:44 04:44 WBC 8.48 Hgb 13.2 L Hct 39.5 L Plt Count 274 Sodium 131 L Potassium 3.5 Chloride 99 Carbon Dioxide 23 BUN 20 H Creatinine 1.38 D Glucose 84 Calcium 8.3 L D Phosphorus 3.6 Magnesium 2.1 Albumin 3.1 L Triglycerides 430 H Lipase 305 PG Care Time/CCT Total # of Minutes Spent Total Time Spent with Patient: Total time spent is greater than 50% in coordination of care (as documented) at patient's floor/unit and/or counseling patient: Coding Level of Care Code 71035 Subseq Hosp Care Lvl 3 Diagnoses JE (acute kidney injury) N17.9 Hypertriglyceridemia E78.1
[2021-10-11] MEDS ORDERED: GLUCOSE 40% GEL 15 GM TUBE PO PRN (09:49)
[2021-10-11] MEDS ORDERED: CARBOHYDRATES FOR HYPOGLYCEMIA PO PRN (09:49)
[2021-10-11] MEDS ORDERED: METOPROLOL TARTRATE 25 MG TAB PO ONE (09:49)
[2021-10-11] MEDS ORDERED: GLUCAGON FOR INJ 1 MG VIAL SQ PRN (09:49)
[2021-10-11] MEDS ORDERED: GLUCOSE 10 TABS/TUBE PO PRN (09:49)
[2021-10-11] MEDS ORDERED: DEXTROSE 50% 50 ML SYRINGE IV PRN (09:49)
[2021-10-11] MEDS ORDERED: HYDROmorphone INJ 0.5 MG/0.5 ML SYR IV PRN (09:52)
[2021-10-11] MEDS: PHENYLEPHRINE HCL 40 MG in DEXTROSE 5% 500 ML IV SCH ×2 (10:31→10:32)
[2021-10-11] MEDS: VENLAFAXINE HCL 75 MG TAB PO SCH (11:05)
[2021-10-11] MEDS: HYDROmorphone INJ 1 MG/ML SYRINGE IV PRN ×2 (11:09→22:05)
[2021-10-11] MEDS: VENLAFAXINE HCL 37.5 MG TAB PO SCH ×2 (11:21→20:03)
[2021-10-11] MEDS: INSULIN ASPART PER UNIT SC SCH ×3 (11:43→20:13)
[2021-10-11] MEDS ORDERED: METOPROLOL TARTRATE 25 MG TAB PO SCH (14:00)
--- NOTE | 2021-10-11 14:52 | Hospitalist Progress Note ---
Date of Service October 11, 2021 Assessment & Plan (1) Pancreatitis: Plan: Acute pancreatitis with peripancreatic edema, Secondary to hypertriglyceridemia Triglycerides >3000 on admission, downtrending near normal at 400 Lipase greater than 21,000 on admit now in the normal range as of 10/11/2021 CT with contrast 09/28: Mild peripancreatic inflammatory change surrounding pancreatic tail consistent with acute pancreatitis. No signs of abscess or pseudocyst at that time Discussed with radiology pt with JE on admission with postrenal retention but worsening abd symptoms, and necessity of contrast for visualization. Recommended CT with IV contrast to reevaluate for pancreatic necrosis/abscess, but with a half contrast dose will proceed with CT. - Initial concern for Abdominal Compartment Syndrome. Surgery consulted, did not recommend surgical intervention/ decompression. NGT placed 10/08, KUB confirmed placement. Removed 10/11/2021 Patient downgraded from ICU status to med telemetry Initial concerns for need for transfer seem to be unwarranted as metabolic abnormalities have improved (2) Tachycardia: Plan: Patient has been persistently significantly tachycardic. He says he is always that way. He did have his beta-blockers held temporarily. These have been restarted. He does have some diaphoresis but no chest discomfort. Subsequently labs will be checked in the afternoon of 10/11 for thyroid cardiac inflammation procalcitonin and lactic acid. He will be restarted on IV fluids and watch carefully (3) JE (acute kidney injury): Plan: JE/ARF Creatinine increased from 1.29 on admission, peaked at 4.69 now downtrending Nephrology has signed off as of 10/11/2021 - Lisinopril/hctz held - (4) MARCELINA (obstructive sleep apnea): Plan: MARCELINA - Continue home nighttime BiPAP - Pt denies history of other lung disease, no hx of oxygen requirement, no hypercarbia on admission If limited by NGT, oxmask overnight with spo2 goal >90%, (5) Hypertriglyceridemia: Plan: Hyperlipidemia Likely will resume atorvastatin 10 mg p.o. & Fenofibrate Once tolerating p.o. intake (6) Diabetes mellitus with hyperglycemia: Plan: - On insulin drip for hypertriglyceridemia this was discontinued as of 10/11 we will check QAC/QHS Bsg to use with insulin sliding scale (7) Abdominal pain: Plan: see above (8) High blood pressure: Plan: Hx hypertension, hypotensive during admit Lisinopril held for JE Hydrochlorothiazide held for JE - Metoprolol restarted for tachycardia Plan: Diet: Allowed diet as of 10/11, NGT discontinued 10/11 DVT prophylaxis: Lovenox CODE STATUS: Full code Admission and Anticipated Discharge Date Admission Date: October 07, 2021 Subjective Take as was recommended downgrade from ICU status by intensive care and signed off by nephrology feeling he was stable. It is true that his lipase is normalized and his triglycerides are down to 400. Patient however is feeling kind of foggy with regard to his mentation was diaphoretic is persistently tachycardic and has persistent mild abdominal pain with distention. 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 Review of Systems Review of Systems: Moderate distress and significant fatigue, feeling of diaphoresis no headache, no visual changes no speech or swallowing issues no chest pain, pressure or palpitations (despite being tachycardic) no shortness of breath, cough or wheezes no abdominal pain, sense of bloating, no nausea or vomiting, persistent constipation no dysuria, hematuria or frequency no focal joint pain or swelling no back pain, CVA tenderness or radicular pain no bruising, bleeding or rashes no focal signs of weakness or numbness or altered sensation no complaints of anxiety or depression.. Physical Exam Physical Exam: The patient appeared well nourished and normally developed. Vital signs as documented. Head exam is normocephalic atraumatic Neck is without JVD, thyromegaly, or carotid bruits. Lungs are clear to auscultation, no focal loss of breath sounds Cardiac exam, Rhythm is regular.. Significantly tachycardic without murmurs Abdominal exam reveals normal bowel sounds, soft distended but nontender slightly tense, no rebound no guarding Extremities are nonedematous and both pedal pulses are present Neurologic exam is alert and oriented x3 however in conversation seemingly gets confused about different facts no focal loss of strength or sensation Skin is without bruises or rashes Psychologically is with concerns perhaps opiate affects of mentation clarity Results & Data Results & Data ([facility]) Vital Signs (Past 12 Hours) Vital Signs Pulse Resp BP Pulse Ox 10/11/21 14:04 112 H 24 129/89 10/11/21 13:00 112 H 86 L 10/11/21 12:00 126 H 95 10/11/21 11:08 136 H 133/97 10/11/21 11:00 134 H 14 129/89 95 10/11/21 10:00 143 H 13 10/11/21 09:00 137 H 15 95 10/11/21 08:00 128 H 16 158/116 H 96 10/11/21 07:00 126 H 16 93 10/11/21 06:45 126 H 18 94 10/11/21 06:34 137 H 165/96 H 10/11/21 06:00 134 H 21 165/96 H 94 10/11/21 05:00 131 H 18 149/88 H 95 10/11/21 04:00 132 H 19 150/76 H 93 10/11/21 03:00 131 H 22 123/70 95 PG Care Time/CCT Total # of Minutes Spent Total Time Spent with Patient: Total time spent is greater than 50% in coordination of care (as documented) at patient's floor/unit and/or counseling patient: Coding Level of Care Code 83972 Subseq Hosp Care Lvl 3 Diagnoses Pancreatitis K85.90 JE (acute kidney injury) N17.9 MARCELINA (obstructive sleep apnea) G47.33 Hypertriglyceridemia E78.1 Diabetes mellitus with hyperglycemia E11.65 Abdominal pain R10.9 High blood pressure I10 Tachycardia R00.0
[2021-10-11 15:39] LABS: T4 Free Thyroxine 1.08 ng/dl (0.8-1.6); Thyroid Stimulating Hormone 0.534 uIu/ml (0.300-4.500); Troponin I 0.015 ng/ml (0-0.045)
[2021-10-11] MEDS: METOPROLOL TARTRATE 50 MG TAB PO SCH (20:03)
[2021-10-12] MEDS: HYDROmorphone INJ 1 MG/ML SYRINGE IV PRN ×7 (01:58→23:17)
[2021-10-12] MEDS ORDERED: HYDROmorphone INJ 1 MG/ML SYRINGE IV STA (05:50)
[2021-10-12] MEDS: SODIUM CHLORIDE 0.9% 1000ML 1,000 ML IV SCH ×3 (06:02→22:18)
--- NOTE | 2021-10-12 06:11 | Communication Note ---
Date of Service: October 12, 2021 Subjective: Given sign out that the patient had a pending CT scan to follow up on. After reviewing the CT I asked nursing and pt, about urinary concerns and he has had good urine output and no complaints of pain with urination. Catheter removed 2 days prior. 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 Objective: BP 138/86 HR 112 RR 18 T 36.4 O2: 98 RA General: uncomfortable in the room Abd.: distended and tender to palpation in the epigastric region radiating to the back CT a/p w/ STATRAD report: question of UTI with gas in bladder potentially 2/2 recent instrumentation A/P: 41 y/o M w/ pancreatitis 2/2 elevated triglycerides that have improved currently having abdominal pain and ct findings with possible UTI/CAUTI - given one time dose of Dilaudid and pt. may require decreased potency and shorter interval of pain medication - UA ordered but held off on empiric treatment of possible UTI given no urinary symptoms, afebrile and normotensive
--- NOTE | 2021-10-12 07:57 | CT Scan Report ---
ABDOMEN AND PELVIS CT WITH ORAL CONTRAST CT DOSE: 1596.33 mGy.cm HISTORY: Acute pancreatitis. Follow-up. Abdominal pain. eval for pancreatic pseudocyst or intra abd abscess TECHNIQUE: Multiaxial CT images of the abdomen and pelvis were performed following the use of oral co ntrast. A dose lowering technique was utilized adhering to the principles of ALARA. COMPARISON STUDY: Abdomen and pelvis CT 10/08/2021. FINDINGS: There is a small left pleural effusion, unchanged. Patchy bilateral lower lobe densities, l eft greater than right have slightly progressed. This favors progressive atelectasis. No fractures wi thin the visualized osseous structures. Hepatic steatosis. Density within the gallbladder favors vica rious excretion of contrast. The unenhanced spleen, adrenal glands, and kidneys are unremarkable. Mod erate peripancreatic edema/fluid is stable to slightly improved compared the prior study. This extend s into the anterior pararenal spaces and within the left perinephric space. There is bladder wall thi ckening with adjacent fat stranding and a small focus of gas within the bladder lumen. This has progr essed in the interval. Colonic diverticulosis. No evidence for acute diverticulitis. No bowel wall th ickening or obstruction. Normal appendix. Evaluation for pancreatic necrosis is essentially nondiagno stic due to the lack of intravenous contrast. No loculated peripancreatic fluid collections to sugges t an abscess. IMPRESSION: 1. Redemonstration of the acute pancreatitis with stable to slight improvement in the peripancreatic edema/inflammatory change. 2. Bladder wall thickening with adjacent fat stranding. This likely represents a cystitis. There is a small focus of gas within the bladder lumen which could be due to recent catheterization. 3. No bowel wall thickening or obstruction. 4. Normal appendix. 5. Hepatic steatosis. 6. Small left pleural effusion unchanged. ACT 112: Negative or not required by law. Electronically signed by: Dano Melchor M.D. 10/12/2021 7:56 AM
[2021-10-12 08:31] LABS: Hematocrit (blood only) 38.3 % (42-52); Hemoglobin 12.8 g/dL (14.0-18.0); Mean Corpuscular Hemoglobin 27.6 pg (25-34); Mean Corpuscular Hgb Conc 33.4 g/dL (32-36); Mean Corpuscular Volume 82.5 fL (80-100); Mean Platelet Volume 10.1 fL (7.4-10.4); Platelet Count 268 K/uL (130-400); RDW Coefficient of Variation 14.4 % (11.5-14.5); RDW Standard Deviation 43.4 fL (36.4-46.3); Red Blood Count 4.64 M/uL (4.7-6.1); White Blood Count 8.52 K/uL (4.8-10.8)
[2021-10-12] MEDS: FAMOTIDINE 20 MG in SYRINGE 3 ML IV SCH ×2 (08:53→21:46)
[2021-10-12 08:54] LABS: Albumin Level 2.5 gm/dl (3.4-5.0); BUN Creatinine Ratio 21.9 (10-20); Bilirubin Direct 0.2 mg/dl (0-0.2); Bilirubin,Total 0.8 mg/dl (0.2-1); Calcium 8.8 mg/dl (8.5-10.1); Creatinine Clr Calc Pharmacy 155.2 ml/min; Est GFR (African American) 122.8 ml/min; Magnesium 1.8 mg/dl (1.8-2.4); Phosphorus 2.7 mg/dl (2.5-4.9)
[2021-10-12] MEDS: VENLAFAXINE HCL 37.5 MG TAB PO SCH ×2 (08:54→21:48)
[2021-10-12] MEDS: METOPROLOL TARTRATE 50 MG TAB PO SCH ×2 (08:54→21:47)
[2021-10-12 09:01] LABS: Potassium 3.7 mmol/L (3.5-5.1)
[2021-10-12 09:07] LABS: Basophils # (auto) 0.03 K/uL (0-0.2); Basophils % (auto) 0.4 %; Eosinophils # (auto) 0.11 K/uL (0-0.5); Eosinophils % (auto) 1.3 %; Immature Granulocytes # (auto) 0.44 K/uL (0.00-0.02); Immature Granulocytes % (auto) 5.2 %; Lymphocytes # (auto) 1.27 K/uL (1.2-3.4); Lymphocytes % (auto) 14.9 %; Monocytes # (auto) 0.93 K/uL (0.11-0.59); Monocytes % (auto) 10.9 %; Neutrophils # (auto) 5.74 K/uL (1.4-6.5); Neutrophils % (auto) 67.3 %
[2021-10-12] MEDS: INSULIN ASPART PER UNIT SC SCH ×4 (09:20→21:44)
[2021-10-12] MEDS: cefTRIAXone SODIUM 2,000 MG in DEXTROSE 5% 50 ML IV SCH (09:23)
[2021-10-12 09:30] LABS: Appearance Urine Clear (Clear); Bacteria Urine Automated Negative (Negative); Bilirubin Urine Negative (Negative); Blood Urine 3+ (Negative); Color Urine Orange; Glucose Urine UA 3+ (Negative); Ketones Urine 2+ (Negative); Leukocyte Esterase Urine Negative (Negative); Nitrite Urine Negative (Negative); Protein Urine 2+ (Negative); RBC Urine Automated >30 /hpf (0-4); Specific Gravity Urine 1.019 (1.000-1.030); Urobilinogen Urine Negative (Negative)
--- NOTE | 2021-10-12 09:56 | Gastroenterology Progress Note ---
Date of Service October 12, 2021 Assessment & Plan (1) Pancreatitis: Plan: -Continue liquid diet for now -Pain control and supportive care per primary team Admission and Anticipated Discharge Date Admission Date: October 07, 2021 Supervising Physician Co-Signing Physician Notes Agree with MCKINLEY Shaw as above Abd: Soft, obese, tender epigastric area, ND Continue current therapy and supportive care Will follow clinical course and make further recommendations as indicated Subjective Patient is a 41 yo male with pancreatitis. His lipase has downtrended and is currently 344. He underwent a repeat CT scan on 10/11/21 that indicated some improvement of his pancreatitis. AST 48. ALT 49. Bilirubin wnl. He notes 6/10 pain this AM and notes it's primarily in his back. He is drinking liquids and notes he's been tolerating this well. He reports a bowel movement on 10/11/21. He denies other acute GI issues at present. Review of Systems Gastrointestinal: + abdominal pain; no blood in stools Physical Exam Constitutional: WD/WN, vitals as above Respiratory: normal respiratory effort, lungs clear to auscultation Cardiovascular: RRR, no murmur, no edema Gastrointestinal (Abdomen): Inspection/Auscultation: normal bowel sounds Percussion/Palpation: + abdomen tender and abdomen soft Psychiatric: Orientation: alert and oriented x 3 Results & Data Results & Data ([facility]) Vital Signs (Past 12 Hours) Vital Signs Temp Pulse Pulse Resp BP BP Pulse Ox 10/12/21 07:10 34.6 C L 128 H 20 138/92 97 10/12/21 04:01 36.4 C L 112 H 18 138/86 98 10/12/21 03:26 110 H 10/12/21 01:34 36.8 C 113 H 18 140/80 96 10/12/21 00:00 36.7 C 110 H 18 135/89 95 PG Care Time/CCT Total # of Minutes Spent Total Time Spent with Patient: Total time spent is greater than 50% in coordination of care (as documented) at patient's floor/unit and/or counseling patient: Coding Level of Care Code 91862 Subseq Hosp Care Lvl 2 Diagnoses Pancreatitis K85.90
--- NOTE | 2021-10-12 11:19 | Surgery Progress Note ---
Date of Service October 12, 2021 Assessment & Plan (1) Pancreatitis: (2) Hypotension: Plan: requiring IV pressor support hemodynamically stable (3) Ileus: Plan: secondary to acute pancreatitis Plan: 41 year old male with acute pancreatitis with ileus , JE, and now hypotension requiring IV pressor support No acute surgical intervention Continue supportive care: Pain management, IV fluids, NPO, NGT to LIS, IV Zofran as needed for nausea once pain better controlled hopefully patient can get OOB to chair and ambulate to family helper in GI motility Continue ICU management [facility] Surgery covering this weekend Dr. Ponce has seen and examined pt, agrees with above. 10/12/2021 11:20AM F/U pancreatitis, doing better, lipase normal, recovery renal function continue conservative treatment no surgery indication now, will F/U Admission and Anticipated Discharge Date Admission Date: October 07, 2021 Supervising Physician Co-Signing Physician Notes As per Kimo Hahn physician assistant film editor No surgical issues at this time Subjective Patient is a 41 yo male with pancreatitis. His lipase has downtrended and is currently 344. He underwent a repeat CT scan on 10/11/21 that indicated some improvement of his pancreatitis. AST 48. ALT 49. Bilirubin wnl. He notes 6/10 pain this AM and notes it's primarily in his back. He is drinking liquids and notes he's been tolerating this well. He reports a bowel movement on 10/11/21. He denies other acute GI issues at present. 10/12/2021 11:18AM DR. Ponce F/U pancreatitis, pt feels better, less abdominal pain, no fever, BM X 1 Physical Exam Constitutional: WD/WN, vitals as above Eyes: PERRL, conjunctivae normal, anicteric sclerae Neck: trachea midline, no thyromegaly Respiratory: normal respiratory effort, lungs clear to auscultation Cardiovascular: RRR, no murmur, no edema Gastrointestinal (Abdomen): soft, mild tenderness at epigastric area, no rebound pain, no distend, BS + Musculoskeletal: no cyanosis or clubbing, extremities motor strength 5/5 Skin: no rashes, warm and dry Neurologic: patellar DTR's 2+ bilat, sensation intact Psychiatric: A+Ox3, euthymic affect Results & Data ([facility]) Vital Signs (Past 12 Hours) Vital Signs Temp Pulse Pulse Resp BP BP Pulse Ox 10/12/21 10:56 36.5 C 114 H 17 160/93 H 99 10/12/21 07:10 34.6 C L 128 H 20 138/92 97 10/12/21 04:01 36.4 C L 112 H 18 138/86 98 10/12/21 03:26 110 H 10/12/21 01:34 36.8 C 113 H 18 140/80 96 10/12/21 00:00 36.7 C 110 H 18 135/89 95 Laboratory Results Abnormal lab results 10/11/21 10/11/21 10/11/21 Range/Units 11:36 14:57 14:57 RBC (4.7-6.1) M/uL Hgb (14.0-18.0) g/dL Hct (42-52) % [place] # (Auto) (0.11-0.59) K/uL Immature Gran # (Auto) (0.00-0.02) K/uL ESR > 130 H (0-15) mm/hr Sodium (136-145) mmol/L Chloride (98-107) mmol/L BUN (7-18) mg/dl BUN/Creatinine Ratio (10-20) Glucose (70-99) mg/dl POC Glucose 146 H (70-99) mg/dl AST (15-37) U/L Albumin (3.4-5.0) gm/dl Triglycerides (0-150) mg/dl Procalcitonin 1.49 H (0-0.5) ng/ml Urine Protein (Negative) Urine Glucose (UA) (Negative) Urine Ketones (Negative) Urine Blood (Negative) Urine RBC (Auto) (0-4) /hpf U Epithel Cells (Auto) (0-5) /lpf 10/11/21 10/11/21 10/12/21 Range/Units 16:31 20:05 07:32 RBC (4.7-6.1) M/uL Hgb (14.0-18.0) g/dL Hct (42-52) % [place] # (Auto) (0.11-0.59) K/uL Immature Gran # (Auto) (0.00-0.02) K/uL ESR (0-15) mm/hr Sodium (136-145) mmol/L Chloride (98-107) mmol/L BUN (7-18) mg/dl BUN/Creatinine Ratio (10-20) Glucose (70-99) mg/dl POC Glucose 167 H 132 H 152 H (70-99) mg/dl AST (15-37) U/L Albumin (3.4-5.0) gm/dl Triglycerides (0-150) mg/dl Procalcitonin (0-0.5) ng/ml Urine Protein (Negative) Urine Glucose (UA) (Negative) Urine Ketones (Negative) Urine Blood (Negative) Urine RBC (Auto) (0-4) /hpf U Epithel Cells (Auto) (0-5) /lpf 10/12/21 10/12/21 10/12/21 Range/Units 07:39 07:46 09:12 RBC 4.64 L (4.7-6.1) M/uL Hgb 12.8 L (14.0-18.0) g/dL Hct 38.3 L (42-52) % [place] # (Auto) 0.93 H (0.11-0.59) K/uL Immature Gran # (Auto) 0.44 H (0.00-0.02) K/uL ESR (0-15) mm/hr Sodium 130 L (136-145) mmol/L Chloride 97 L (98-107) mmol/L BUN 19 H (7-18) mg/dl BUN/Creatinine Ratio 21.9 H (10-20) Glucose 159 H (70-99) mg/dl POC Glucose (70-99) mg/dl AST 48 H (15-37) U/L Albumin 2.5 L (3.4-5.0) gm/dl Triglycerides 344 H (0-150) mg/dl Procalcitonin (0-0.5) ng/ml Urine Protein 2+ H (Negative) Urine Glucose (UA) 3+ H (Negative) Urine Ketones 2+ H (Negative) Urine Blood 3+ H (Negative) Urine RBC (Auto) >30 H (0-4) /hpf U Epithel Cells (Auto) 10-20 H (0-5) /lpf Diagnostic Findings ABDOMEN AND PELVIS CT WITH ORAL CONTRAST CT DOSE: 1596.33 mGy.cm HISTORY: Acute pancreatitis. Follow-up. Abdominal pain. eval for pancreatic pseudocyst or intra abd abscess TECHNIQUE: Multiaxial CT images of the abdomen and pelvis were performed following the use of oral contrast. A dose lowering technique was utilized adhering to the principles of ALARA. COMPARISON STUDY: Abdomen and pelvis CT 10/08/2021. FINDINGS: There is a small left pleural effusion, unchanged. Patchy bilateral lower lobe densities, left greater than right have slightly progressed. This favors progressive atelectasis. No fractures within the visualized osseous structures. Hepatic steatosis. Density within the gallbladder favors vicarious excretion of contrast. The unenhanced spleen, adrenal glands, and kidneys are unremarkable. Moderate peripancreatic edema/fluid is stable to slightly improved compared the prior study. This extends into the anterior pararenal spaces and within the left perinephric space. There is bladder wall thickening with adjacent fat stranding and a small focus of gas within the bladder lumen. This has progressed in the interval. Colonic diverticulosis. No evidence for acute diverticulitis. No bowel wall thickening or obstruction. Normal appendix. Evaluation for pancreatic necrosis is essentially nondiagnostic due to the lack of intravenous contrast. No loculated peripancreatic fluid collections to suggest an abscess. IMPRESSION: 1. Redemonstration of the acute pancreatitis with stable to slight improvement in the peripancreatic edema/inflammatory change. 2. Bladder wall thickening with adjacent fat stranding. This likely represents a cystitis. There is a small focus of gas within the bladder lumen which could be due to recent catheterization. 3. No bowel wall thickening or obstruction. 4. Normal appendix. 5. Hepatic steatosis. 6. Small left pleural effusion unchanged.
--- NOTE | 2021-10-12 14:23 | XCELERA ---
[id number]
[2021-10-12] MEDS: METOPROLOL TARTRATE 1 MG/ML VIAL IV PRN ×2 (15:08→19:25)
[2021-10-12] MEDS ORDERED: QUEtiapine FUMARATE 25 MG TABLET PO ONE ×2 (16:17→21:00)
--- NOTE | 2021-10-12 20:24 | Hospitalist Progress Note ---
Date of Service October 12, 2021 Assessment & Plan (1) Pancreatitis: Plan: Acute pancreatitis with peripancreatic edema, Secondary to hypertriglyceridemia Triglycerides >3000 on admission, downtrending near normal at 400 Lipase greater than 21,000 on admit now in the normal range as of 10/11/2021 CT with contrast 10/08/2021: Mild peripancreatic inflammatory change surrounding pancreatic tail consistent with acute pancreatitis. - Repeat CT scan 10/11/2021 persistent acute pancreatitis with slight improvement. No pseudocyst seen. Fat stranding around the bladder consistent with cystitis air in the bladder considered to be secondary to catheterization. No bowel wall thickening or obstruction normal appendix hepatic steatosis present - Initial concern for Abdominal Compartment Syndrome. Surgery consulted, did not recommend surgical intervention/ decompression. NGT placed 10/08, KUB confirmed placement. Removed 10/11/2021 Patient downgraded from ICU status to med telemetry has persistent tachycardia remains on med telemetry Initial concerns for need for transfer to tertiary center seem to be unwarranted as metabolic abnormalities have improved (2) Tachycardia: Plan: Patient has been persistently significantly tachycardic. He says he is always that way. He did have his beta-blockers held temporarily. These have been restarted. He does have some diaphoresis but no chest discomfort. Normal TSH markedly elevated ESR mildly elevated procalcitonin and normal lactic acid. Normal echocardiogram without evidence of endocarditis blood cultures are pending (3) JE (acute kidney injury): Plan: JE/ARF Creatinine increased from 1.29 on admission, peaked at 4.69 now downtrending Nephrology has signed off as of 10/11/2021 - Lisinopril/hctz held - (4) MARCELINA (obstructive sleep apnea): Plan: MARCELINA - Continue home nighttime BiPAP - Pt denies history of other lung disease, no hx of oxygen requirement, no hypercarbia on admission (5) Hypertriglyceridemia: Plan: Hyperlipidemia Likely will resume atorvastatin 10 mg p.o. & Fenofibrate Once tolerating p.o. intake (6) Diabetes mellitus with hyperglycemia: Plan: - On insulin drip for hypertriglyceridemia this was discontinued as of 10/11 continue QAC/QHS Bsg to use with insulin sliding scale (7) Abdominal pain: Plan: see above (8) High blood pressure: Plan: Hx hypertension, hypotensive during admit Lisinopril held for JE Hydrochlorothiazide held for JE - Metoprolol restarted for tachycardia, dose increased Plan: Diet: Allowed diet as of 10/11, NGT discontinued 10/11 DVT prophylaxis: Lovenox CODE STATUS: Full code Admission and Anticipated Discharge Date Admission Date: October 07, 2021 Subjective pt with occasional alteration of mental status not clear if from medication for pain or baseline other issues, does have significantly elevated ESR, overall clinically is slowly improving with medication. Echo and blood cultures are negative at this time Review of Systems Review of Systems: Mild to moderate distress and fatigue no headache, no visual changes no speech or swallowing issues no chest pain, pressure or palpitations no shortness of breath, cough or wheezes Diffuse abdominal pain, without nausea or vomiting, flatus & 1 bowel movement no dysuria, hematuria or frequency no focal joint pain or swelling no back pain, CVA tenderness or radicular pain no bruising, bleeding or rashes no focal signs of weakness or numbness or altered sensation no complaints of anxiety or depression.. Physical Exam Physical Exam: The patient appeared well nourished and normally developed. Vital signs as documented. Head exam is normocephalic atraumatic Neck is without JVD, thyromegaly, or carotid bruits. Lungs are clear to auscultation, no focal loss of breath sounds Cardiac exam, Rhythm is regular.. No murmurs, rubs or gallops. Abdominal exam reveals normal bowel sounds, slightly distended but not tense no focal guarding or rebound Extremities are nonedematous and both pedal pulses are present Neurologic exam is alert and oriented x3 but occasionally appears confused in casual conversation, no focal loss of strength or sensation Skin is without bruises or rashes Psychologically is without concerns for anxiety or depression.. Results & Data Results & Data ([facility]) Vital Signs (Past 12 Hours) Vital Signs Temp Pulse Pulse Resp BP BP BP 10/12/21 19:31 98.4 F 125 H 18 167/111 H 10/12/21 19:25 128 H 132/85 10/12/21 19:18 99.9 F H 129 H 22 132/85 10/12/21 16:00 116 H 10/12/21 15:33 98.2 F 118 H 18 175/91 H 10/12/21 15:08 124 H 190/90 H 10/12/21 10:56 97.7 F 114 H 17 160/93 H Pulse Ox 10/12/21 19:31 97 10/12/21 19:25 10/12/21 19:18 96 10/12/21 16:00 10/12/21 15:33 99 10/12/21 15:08 10/12/21 10:56 99 PG Care Time/CCT Total # of Minutes Spent Total Time Spent with Patient: Total time spent is greater than 50% in coordination of care (as documented) at patient's floor/unit and/or counseling patient: Coding Level of Care Code 23361 Subseq Hosp Care Lvl 3 Diagnoses Pancreatitis K85.90 Tachycardia R00.0 JE (acute kidney injury) N17.9 MARCELINA (obstructive sleep apnea) G47.33 Hypertriglyceridemia E78.1 Diabetes mellitus with hyperglycemia E11.65 Abdominal pain R10.9 High blood pressure I10
[2021-10-12] MEDS ORDERED: hydrOXYzine HCl 10 MG TAB PO STA (22:08)
[2021-10-13] MEDS: HYDROmorphone INJ 1 MG/ML SYRINGE IV PRN ×4 (02:11→22:31)
[2021-10-13] MEDS: SODIUM CHLORIDE 0.9% 1000ML 1,000 ML IV SCH (05:38)
[2021-10-13] MEDS: VENLAFAXINE HCL 37.5 MG TAB PO SCH ×2 (07:43→19:48)
[2021-10-13] MEDS: METOPROLOL TARTRATE 50 MG TAB PO SCH ×2 (07:44→19:47)
[2021-10-13] MEDS: cefTRIAXone SODIUM 2,000 MG in DEXTROSE 5% 50 ML IV SCH (07:46)
[2021-10-13] MEDS: FAMOTIDINE 20 MG in SYRINGE 3 ML IV SCH ×2 (07:46→19:41)
[2021-10-13] MEDS: INSULIN ASPART PER UNIT SC SCH ×4 (07:50→21:17)
[2021-10-13 08:06] LABS: Albumin Level 2.4 gm/dl (3.4-5.0); Bilirubin Direct 0.2 mg/dl (0-0.2); Bilirubin,Total 0.6 mg/dl (0.2-1); Total Protein 6.7 gm/dl (6.4-8.2)
[2021-10-13 08:15] LABS: Lyme Ab IgG w/WB Rflx Negative (Negative)
[2021-10-13 08:51] LABS: Lyme Ab IgM w/WB Rflx Equivocal (Negative)
[2021-10-13] MEDS: HYDROmorphone INJ 0.5 MG/0.5 ML SYR IV PRN ×3 (09:57→16:16)
--- NOTE | 2021-10-13 10:07 | Surgery Progress Note ---
Date of Service October 13, 2021 Assessment & Plan (1) Pancreatitis: (2) Hypotension: Plan: requiring IV pressor support hemodynamically stable (3) Ileus: Plan: secondary to acute pancreatitis Plan: 41 year old male with acute pancreatitis with ileus , JE, and now hypotension requiring IV pressor support No acute surgical intervention Continue supportive care: Pain management, IV fluids, NPO, NGT to LIS, IV Zofran as needed for nausea once pain better controlled hopefully patient can get OOB to chair and ambulate to form builder helper in GI motility Continue ICU management [facility] Surgery covering this weekend Dr. Mcmanus has seen and examined pt, agrees with above. 10/12/2021 11:20AM F/U pancreatitis, doing better, lipase normal, recovery renal function continue conservative treatment no surgery indication now, will F/U 10/13/2021 10:06AM Dr. mcmanus F/U pancreatitis, doing better, tolerated clear diet, lipase normal, recovery renal function continue conservative treatment no surgery indication now, sign off today, please call with questions, thanks, Admission and Anticipated Discharge Date Admission Date: October 07, 2021 Supervising Physician Co-Signing Physician Notes Agree with MCKINLEY Shaw as above Abd: Soft, obese, tender epigastric area, ND Continue current therapy and supportive care Will follow clinical course and make further recommendations as indicated Subjective pt with occasional alteration of mental status not clear if from medication for pain or baseline other issues, does have significantly elevated ESR, overall clinically is slowly improving with medication. Echo and blood cultures are negative at this time 10/13/2021 10:04AM Dr. Mcmanus doing better, no significant abdominal pain, tolerated clear diet, no nausea, no vomiting, no fever, Physical Exam Constitutional: WD/WN, vitals as above Eyes: PERRL, conjunctivae normal, anicteric sclerae Neck: trachea midline, no thyromegaly Respiratory: normal respiratory effort, lungs clear to auscultation Cardiovascular: RRR, no murmur, no edema Gastrointestinal (Abdomen): soft, NT, Nd, BS + Musculoskeletal: no cyanosis or clubbing, extremities motor strength 5/5 Skin: no rashes, warm and dry Neurologic: patellar DTR's 2+ bilat, sensation intact Psychiatric: A+Ox3, euthymic affect Results & Data ([facility]) Vital Signs (Past 12 Hours) Vital Signs Temp Pulse Pulse Resp BP BP Pulse Ox 10/13/21 07:34 36.7 C 117 H 20 157/94 H 98 10/13/21 07:10 110 H 10/13/21 02:14 36.8 C 113 H 18 137/89 95 10/12/21 23:23 106 H 125/72 10/12/21 23:03 36.8 C 121 H 18 173/105 H 98 10/12/21 22:17 131 H Laboratory Results Abnormal lab results 10/12/21 10/12/21 10/12/21 Range/Units 11:39 16:24 19:09 POC Glucose 137 H 142 H 144 H (70-99) mg/dl AST (15-37) U/L Albumin (3.4-5.0) gm/dl Lyme Disease IgM Ab (Negative) 10/12/21 10/13/21 10/13/21 Range/Units 20:07 07:18 07:18 POC Glucose 132 H (70-99) mg/dl AST 38 H (15-37) U/L Albumin 2.4 L (3.4-5.0) gm/dl Lyme Disease IgM Ab Equivocal A (Negative) 10/13/21 Range/Units 07:26 POC Glucose 115 H (70-99) mg/dl AST (15-37) U/L Albumin (3.4-5.0) gm/dl Lyme Disease IgM Ab (Negative)
[2021-10-13] MEDS ORDERED: lisinopril 5 MG TAB PO ONE (16:47)
--- NOTE | 2021-10-13 16:47 | Hospitalist Progress Note ---
Date of Service October 13, 2021 Assessment & Plan (1) Pancreatitis: Plan: Acute pancreatitis with peripancreatic edema, Secondary to hypertriglyceridemia resolving Triglycerides >3000 on admission, downtrending now normal and advancing diet Lipase greater than 21,000 on admit now in the normal range as of 10/11/2021 CT with contrast 10/08/2021: Mild peripancreatic inflammatory change surrounding pancreatic tail consistent with acute pancreatitis. - Repeat CT scan 10/11/2021 persistent acute pancreatitis with slight improvement. No pseudocyst seen. Fat stranding around the bladder consistent with cystitis air in the bladder considered to be secondary to catheterization. No bowel wall thickening or obstruction normal appendix hepatic steatosis present - Initial concern for Abdominal Compartment Syndrome. Surgery consulted, did not recommend surgical intervention/ decompression. NGT placed 10/08, KUB confirmed placement. Removed 10/11/2021 Patient downgraded from ICU status to med telemetry has persistent tachycardia remains on med telemetry, b blockers have increased Initial concerns for need for transfer to tertiary center seem to be unwarranted as metabolic abnormalities have improved (2) Tachycardia: Plan: Patient has been persistently significantly tachycardic. He says he is always that way. He did have his beta-blockers held temporarily. These have been restarted. He does have some diaphoresis but no chest discomfort. Normal TSH, markedly elevated ESR mildly elevated procalcitonin and normal lactic acid. Normal echocardiogram without evidence of endocarditis blood cultures are negative to date urine culture is negative for infection but also Lyme titre is equivocal has had some improvement of tachycardia since starting antibiotics and this maybe if associated with lyme (3) JE (acute kidney injury): Plan: JE/ARF Creatinine increased from 1.29 on admission, peaked at 4.69 now resolved Nephrology has signed off as of 10/11/2021 - Lisinopril/hctz held, restart michael I - (4) MARCELINA (obstructive sleep apnea): Plan: MARCELINA - Continue home nighttime BiPAP - Pt denies history of other lung disease, no hx of oxygen requirement, no hypercarbia on admission (5) Hypertriglyceridemia: Plan: Hyperlipidemia Likely will resume atorvastatin 10 mg p.o. & Fenofibrate (6) Diabetes mellitus with hyperglycemia: Plan: - On insulin drip for hypertriglyceridemia this was discontinued as of 10/11 continue QAC/QHS Bsg to use with insulin sliding scale (7) Abdominal pain: Plan: see above (8) High blood pressure: Plan: Hx hypertension, hypotensive during admit Lisinopril held for JE restarted 10/13 Hydrochlorothiazide held for JE - Metoprolol restarted for tachycardia, dose increased Plan: Diet: Allowed diet as of 10/11, NGT discontinued 10/11 DVT prophylaxis: Lovenox CODE STATUS: Full code Admission and Anticipated Discharge Date Admission Date: October 07, 2021 Subjective pt is feeling much better, did have good tolerance of diet, less fogginess of brain try ing to stay without opiates for pain control Review of Systems Review of Systems: Mild to moderate distress and fatigue no headache, no visual changes no speech or swallowing issues no chest pain, pressure or palpitations no shortness of breath, cough or wheezes Lessening abdominal pain, without nausea or vomiting, flatus & bowel movement no dysuria, hematuria or frequency no focal joint pain or swelling no back pain, CVA tenderness or radicular pain no bruising, bleeding or rashes no focal signs of weakness or numbness or altered sensation no complaints of anxiety or depression.. Physical Exam Physical Exam: The patient appeared well nourished and normally developed. Vital signs as documented. Head exam is normocephalic atraumatic Neck is without JVD, thyromegaly, or carotid bruits. Lungs are clear to auscultation, no focal loss of breath sounds Cardiac exam, Rhythm is regular.. No murmurs, rubs or gallops. Abdominal exam reveals normal bowel sounds, slightly distended but not tense no focal guarding or rebound Extremities are nonedematous and both pedal pulses are present Neurologic exam is alert and oriented x3, no focal loss of strength or sensation Skin is without bruises or rashes Psychologically is without concerns for anxiety or depression.. Results & Data Results & Data ([facility]) Vital Signs (Past 12 Hours) Vital Signs Temp Pulse Pulse Resp BP Pulse Ox 10/13/21 15:39 99.0 F 120 H 20 147/90 H 97 10/13/21 11:51 98.2 F 111 H 18 137/79 97 10/13/21 07:34 98.1 F 117 H 20 157/94 H 98 10/13/21 07:10 110 H PG Care Time/CCT Total # of Minutes Spent Total Time Spent with Patient: Total time spent is greater than 50% in coordination of care (as documented) at patient's floor/unit and/or counseling patient: Coding Level of Care Code 84153 Subseq Hosp Care Lvl 3 Diagnoses Pancreatitis K85.90 Tachycardia R00.0 JE (acute kidney injury) N17.9 MARCELINA (obstructive sleep apnea) G47.33 Hypertriglyceridemia E78.1 Diabetes mellitus with hyperglycemia E11.65 Abdominal pain R10.9 High blood pressure I10
[2021-10-13] MEDS ORDERED: hydrOXYzine HCl 25 MG TAB PO PRN (16:48)
[2021-10-14] MEDS: HYDROmorphone INJ 1 MG/ML SYRINGE IV PRN ×5 (01:35→13:35)
[2021-10-14] MEDS: VENLAFAXINE HCL 37.5 MG TAB PO SCH (07:35)
[2021-10-14] MEDS: cefTRIAXone SODIUM 2,000 MG in DEXTROSE 5% 50 ML IV SCH (07:36)
[2021-10-14] MEDS: FAMOTIDINE 20 MG in SYRINGE 3 ML IV SCH (07:36)
[2021-10-14] MEDS: METOPROLOL TARTRATE 50 MG TAB PO SCH (07:36)
[2021-10-14] MEDS: INSULIN ASPART PER UNIT SC SCH ×2 (07:49→11:53)
[2021-10-14] MEDS ORDERED: FENOFIBRATE NANOCRYSTALLIZED 48 MG TABLET PO SCH (09:00)
[2021-10-14] MEDS ORDERED: lisinopril 20 MG TAB PO SCH (09:00)
--- NOTE | 2021-10-14 18:49 | Discharge Summary ---
Date of Service October 14, 2021 Admission HPI Per Admitting Provider This is a 41-year-old male who was seen in the emergency department on 09/28/2021 secondary to abdominal pain. During that admission patient had a CT scan of the abdomen that showed pancreatic tail inflammation consistent with pancreatitis. Review of labs show that at that time patient had a CBC where his white blood cell count, hemoglobin, and hematocrit as well as platelet count were all noted to be normal. He was noted to have a sodium of 133 and a normal potassium. BUN and creatinine were noted to be normal at that time as was his calcium. During this admission he did have a lipase as well as LFTs evaluated which were noted to be normal. A glucose level was noted to be 300. Triglyceride level was checked at this time as well which was 832. Patient was felt to be stable for discharge home which he was. Patient notes that he was doing well initially at home however last evening he ate a full meal and shortly thereafter began to develop abdominal pain similar to what he presented to the emergency department with during aforementioned visit. He notes the pain is primary located in the left upper quadrant and epigastric areas of his abdomen. He does not note any radiation of the pain. H e notes that the pain seems to be worse with eating or drinking and it is improved with abstaining from oral intake as well as administration of pain medicines given in the emergency department. Patient currently denies any fevers, shakes, chills. He has not had any nausea or vomiting since his pain began. Patient notes that his bowels have been moving normally without diarrhea and he is passing flatus. The patient denies any recent alcohol consumption. He denies undergoing any recent medical procedures. He also denies any trauma recently to his abdomen. He also denies any prior abdominal surgeries. Today in the emergency department the patient did again have labs performed where his white blood cell count, hemoglobin, hematocrit, and platelet count were all noted to be within normal range. Chemistry profile was performed that showed a sodium of 133. His BUN and creatinine were noted to be normal. A potassium level was ordered however the specimen was hemolyzed and this is c urrently pending on repeat levels. Patient's glucose is again elevated and noted to be 305 today. Patient's LFTs were checked and his bilirubin, ALT, and alkaline phosphatase were all noted to be normal. His AST level is pending.Patient's lipase level was reported to be greater than 15,000. He did have a Covid test that was performed and noted to be negative. A urinalysis was not indicative of infection. No repeat imaging was pursued at this time. At the time of my interview the patient was noted to be hemodynamically stable. He was afebrile. He was uncomfortable but in no overt distress. Principal Diagnosis pancreatitis tachycardia hypertriglyceridemia Discharge Exam The patient appeared well Vital signs as documented. Lungs are clear to auscultation and appear unlabored Cardiac exam, Rhythm is regular.. No murmurs, rubs or gallops. Abdominal exam reveals normal bowel sounds, soft slightly distended Extremities are nonedematous and both pedal pulses are normal. Neurologic exam is alert and oriented, no focal loss of strength or sensation Skin is without bruises or rashes Psychologically is without concerns for anxiety or depression. 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 - Repeat CT scan 10/11/2021 persistent acute pancreatitis with slight improvement. No pseudocyst seen. Fat stranding around the bladder consistent with cystitis air in the bladder considered to be secondary to catheterization. No bowel wall thickening or obstruction normal appendix hepatic steatosis present - Initial concern for Abdominal Compartment Syndrome. Surgery consulted, did not recommend surgical intervention/ decompression. NGT placed 10/08, KUB confirmed placement. Removed 10/11/2021 Initial concerns for need for transfer to tertiary center seem to be unwarranted as metabolic abnormalities have improved (2) Tachycardia: Patient has been persistently significantly tachycardic. He says he is always that way. He did have his beta-blockers held temporarily. These have been restarted. He does have some diaphoresis but no chest discomfort. Normal TSH, markedly elevated ESR mildly elevated procalcitonin and normal lactic acid. Normal echocardiogram without evidence of endocarditis blood cultures are negative to date urine culture is negative for infection but also Lyme titre is equivocal has had some improvement of tachycardia since starting antibiotics and this maybe if associated with lyme as the testing is equivocal. will discharge on cefuroxime po bid until testing returns (3) JE (acute kidney injury): JE/ARF Creatinine increased from 1.29 on admission, peaked at 4.69 now resolved Nephrology has signed off as of 10/11/2021 - Lisinopril/hctz held, restart michael I at discharge - (4) MARCELINA (obstructive sleep apnea): MARCELINA - Continue home nighttime BiPAP - Pt denies history of other lung disease, no hx of oxygen requirement, no hypercarbia on admission (5) Hypertriglyceridemia: Hyperlipidemia Likely will resume atorvastatin 10 mg p.o. & Fenofibrate (6) Diabetes mellitus with hyperglycemia: -pt will be restarted on metformin and recommend short follow up with pcp for further counselling and possible medical management (7) Abdominal pain: see above (8) High blood pressure: Hx hypertension, hypotensive during admit Lisinopril held for JE restarted 10/13 Hydrochlorothiazide held - Metoprolol restarted for tachycardia Diet: Allowed diet as of 10/11, NGT discontinued 10/11 CODE STATUS: Full code Total Time Total Time Spent Total Time Spent (In Minutes): It required greater than 30 minutes to prepare this patient for discharge Discharge Plan Discharge Items Patient Disposition: Home - Self-Care Reason For Visit: PANCREATITIS Discharge Diagnosis: inflamed panreas, pancreatitis high triglycerides( a type of cholesterol) possible lyme disease Activity: Per Instructions section Activity Comment: slowly increase physical activity Non-emergency contact: Primary Care Provider Call non-emergency contact if: your symptoms worsen and you have a fever Follow-up/Referrals: John Mahoney [Hospitalist] - 10/21/21 8:50 am Diet: Carb Consistent or DM2 and Low Fat Addtl Attending Provider Instructions: it would be recommended to have a low fat, low carbohydrate diet as you recover, it would also be preferable to have frequent small meals throughout the day instead of the traditional large meals 3 times a day. also avoid alcohol Please use pain medicine sparingly and understand that it may worsen constipation Pending Studies at Discharge: Yes (final lyme analysis ) Stand-Alone Forms: [facility], Smoking Cessation Medications and DC Order Prescriptions: New cefuroxime axetil 500 mg tablet 500 mg PO BID 10 Days Qty: 20 RF: 0 hydrocodone-acetaminophen 5-325 mg tablet 1 - 2 tab PO TID PRN (Reason: pain) Qty: 30 RF: 0 ondansetron HCl [Zofran] 4 mg tablet 4 mg PO TID PRN (Reason: nausea and vomiting) Qty: 20 RF: 0 Continued fenofibrate micronized 43 mg capsule 43 mg PO DAILY RF: 0 metformin 500 mg tablet 1,000 mg PO BID RF: 0 venlafaxine 75 mg tablet 75 mg PO BID RF: 0 atorvastatin 10 mg tablet 10 mg PO HS RF: 0 lisinopril 20 mg tablet 20 mg PO DAILY RF: 0 metoprolol succinate 100 mg tablet extended release 24 hr 100 mg PO DAILY RF: 0 hydrochlorothiazide 12.5 mg capsule 12.5 mg PO DAILY RF: 0 cholestyramine-aspartame [Cholestyramine Light] 4 gram powder in packet 4 g PO DAILY PRN (Reason: diarrhea ) 30 Days Qty: 30 RF: 0 Discontinued testosterone cypionate 200 mg/mL oil 200 mg IM .[id number] RF: 0 dextroamphetamine-amphetamine 30 mg capsule,extended release 24hr 30 mg PO DAILY RF: 0 Discharge Orders: Discharge Order (Routine); Ordered 10/14/21 Ordered By: Matthew Gonzalez Admission Data Admit Date/Time: 10/07/21 11:51 Attending Provider: Matthew Gonzalez Admit Provider: Kirit Ross Primary Care Provider: PCP,NO Other Providers: Kirit Ross ; Adela Ponce ; Shankar Villafana ; Lokesh Soares ; Jaime Woodruff Other Interventions: Discharge Summary Assessment (RN) Last Done: 10/14/21 15:15 Coding Level of Care Code D/C DAY MANAGEMENT >30 MINS Diagnoses Pancreatitis K85.90 Tachycardia R00.0 JE (acute kidney injury) N17.9 MARCELINA (obstructive sleep apnea) G47.33 Hypertriglyceridemia E78.1 Diabetes mellitus with hyperglycemia E11.65 Abdominal pain R10.9 High blood pressure I10
[2021-10-15 09:16] LABS: 18KDIGG Band NON-REACTIVE; 23KDIGG Band NON-REACTIVE; 23KDIGM Band DNR; 28KDIGG Band NON-REACTIVE; 30KDIGG Band NON-REACTIVE; 39KDIGG Band NON-REACTIVE; 39KDIGM Band DNR; 41KDIGG Band NON-REACTIVE; 41KDIGM Band DNR; 45KDIGG Band NON-REACTIVE; 58KDIGG Band NON-REACTIVE; 66KDIGG Band NON-REACTIVE; 93KDIGG Band NON-REACTIVE; Lyme Antibodies, WB IgG NEGATIVE (NEGATIVE)
--- NOTE | 2021-11-03 16:13 | Coding Query ---
Your help is needed for correct coding of this account; please clarify if the patients Post-operative Ileus was: ( ) expected out of the surgery ( X ) unexpected complication from the surgery ( ) other please specify Thank you Shanell WALKER
== END 2021-10-14 15:45 | disposition home or self-care (01) | DRG 438 ==
LOC: ED 08:46 → SUATTDRO 11:51 → EDINP 11:51 → 2N 15:10 → 2S 10-08 13:59 → 1E 10-09 00:12 → 2N 10-12 01:28